=== PATIENT | female | born 1935 | race Caucasian/White ===

== ENCOUNTER 2023-05-06 20:01 | Inpatient (IN) ==
[2023-05-06 20:39] LABS: Hematocrit (blood only) 43.3 % (37.0-47.0); Hemoglobin 14.6 g/dl (12.0-16.0); Mean Corpuscular Hemoglobin 32.9 pg (25.0-34.0); Mean Corpuscular Hgb Conc 33.7 g/dL (32.0-36.0); Mean Corpuscular Volume 97.5 fL (80.0-100.0); Mean Platelet Volume 10.2 fL (9.4-12.4); Platelet Count 182 K/uL (130-400); RDW Coefficient of Variation 12.8 % (11.5-14.5); Red Blood Count 4.44 M/uL (4.20-5.40); White Blood Count 7.01 K/ul (4.8-10.8)
[2023-05-06 20:41] LABS: iSTAT Creatinine 0.9 mg/dl (0.6-1.3); iSTAT Ionized Calcium 1.13 mmol/l (1.12-1.32); iSTAT Potassium 5.1 mmol/L (3.3-5.0)
[2023-05-06 21:01] LABS: Alanine Aminotransferase 14 U/L (7-52); Albumin Globulin Ratio 1.2 (0.9-2); Albumin Level 3.6 gm/dl (3.4-5.0); Alkaline Phosphatase 94 U/L (34-104); BUN Creatinine Ratio 31.8 (10-20); Bilirubin,Total 0.4 mg/dl (0.2-1.0); Blood Urea Nitrogen 27 mg/dl (6-23); Calcium 8.8 mg/dl (8.6-10.3); Carbon Dioxide 22 mmol/L (21-32); Chloride 108 mmol/L (98-107); Creatinine Clr Calc Pharmacy 35.8 ml/min; Est GFR (African American) 71.9 ml/min; Globulin 3.1 gm/dl (2.5-4.0); Glucose 127 mg/dl (70-99(Fasting)); Total Protein 6.7 gm/dl (6.0-8.3)
[2023-05-06 21:33] LABS: Partial Thromboplastin Ratio 0.9; Partial Thromboplastin Time 25 Seconds (21-31); Prothrombin Time 11.4 Seconds (9.0-12.0)
[2023-05-06 21:46] LABS: Potassium 5.2 mmol/L (3.5-5.1)
--- NOTE | 2023-05-06 22:03 | Emergency Department Note ---
Impression & Plan Lower gastrointestinal hemorrhage ED Provider Note NAME: AIDA WOLFE AGE: 88 SEX: F : 1935 ARRIVES VIA: Walk-In INFORMANT: Patient, ED PROVIDER(S): Anabelle Leger MD CHIEF COMPLAINT: Red blood per rectum HPI: This is an 88-year-old female with history of lupus presenting for bright red blood per rectum. Patient states that around 7 PM today she had numerous liquid bowel movements that consisted mostly of blood. Patient notes that this significantly concerned her so she presented to the ER immediately. Patient tells me that she recently began naproxen for osteoarthritis/lupus as she was taken off an older medication that is now hard to find. She notes that she has never had this happen before. No current nausea or vomiting. No abdominal pain. She notes she has never had a colonoscopy in her life. Otherwise while here she has continued bright red blood per rectum. ROS: See above HPI for pertinent positives & negatives. A total of 10 systems reviewed and were otherwise negative. PAST MEDICAL HISTORY: See Below PAST SURGICAL HISTORY: See Below FAMILY HISTORY: See Below SOCIAL HISTORY: See Below HOME MEDICATIONS: See Below ALLERGIES: See Below VITALS: See Below PHYSICAL EXAMINATION: General: resting comfortably in no acute distress Head: Normocephalic and atraumatic Eyes: Normal inspection, extraocular muscles intact Ear, nose, throat: Normal external exam Neck: Normal range of motion Respiratory: lungs clear to auscultation bilaterally Cardiovascular: Regular rate/rhythm, no murmur GI: soft, nontender, no guarding or rebound : No anal tear, dried blood on patient's perineum, thighs and legs Extremities: nontender, moves all extremities Neuro: The patient awake and alert, appropriately conversive, no focal deficits, symmetric faces Skin: Warm, dry, and intact MEDICAL DECISION MAKING: This is an 88-year-old female presenting for bright blood per rectum. Patient had at least 4 episodes of moderate red-tinged stools. As per nurse, she filled about 1/2-3/4 of toilet hat with her red stool. It was somewhat mucousy but mostly liquid that was blood-tinged. -Patient only had symptoms for the past 3 hours. Hemoglobin is stable at 14 however based on her current length of symptoms, I do not believe she has equal her period yet. -Unfortunately patient cannot be sent home due to the significant amount of bleeding she has had here. She never had a colonoscopy either. -She is on any blood thinners but is on naproxen over the past 2 to 3 weeks -Will admit for further GI workup Differential diagnosis: Upper versus lower GI bleed ER treatment provided: See below Diagnostics interpreted by me: ECG: None Cardiac Monitoring: An order was placed for continuous cardiac monitoring. The monitor shows a rate of 20 with sinus rhythm. Laboratory studies: As stated above and show below. Imaging studies: See below. Past Med/Surg History Medical History (Updated 05/07/23 @ 02:03 by Anabelle Leger MD) Hx of renal calculi lt. History of cataract DVT (deep venous thrombosis) 1977, 1988, resolved [id number] Lupus Surgical History H/O breast surgery (09/18/21) Needle localization right breast biopsy x2 Dr. 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 Family History Daughter Breast cancer Sister Hypertension Father Hypertension Grandfather (Paternal) Stroke Grandfather (Maternal) Hypertension Brother Hypertension Other Heart disease Denies family history of Ovarian cancer Colorectal cancer Social History Smoking Status: Never smoker Second Hand Exposure: No; Do You Dip or Chew Tobacco: No; Hx Alcohol Use: No Hx Substance Use: No Preferred Language: Greenlandic Communication Ability: Effective Transportation Officer Required: No Beliefs That Will Affect Care: None marital status: / Current Living Situation: Alone How many Children do You have: 1 Feels Safe at Home: Yes Diet: regular during the past year weight has: remained stable Assistive Devices: Glasses Allergies Allergies Allergy/AdvReac Type Severity Reaction Status Date / Time adhesive Allergy Unknown Verified 03/06/23 09:41 silicone AdvReac brock Verified 03/06/23 09:41 Home Meds Home Medications Medication Instructions Recorded Confirmed aspirin 81 mg tablet,delayed 81 mg PO QAM 06/05/20 05/06/23 release (Ecotrin Low Strength) glucosamine sulfate 500 mg tablet 500 mg PO BID 06/05/20 05/06/23 (Glucosamine) lisinopril 10 mg tablet 10 mg PO QAM 06/05/20 05/06/23 lisinopril 5 mg tablet 5 mg PO QAM 06/05/20 05/06/23 multivitamin with minerals 1 tab PO DAILY 06/05/20 05/06/23 (Multiple Vitamin-Minerals tablet) naproxen 250 mg tablet 250 mg PO BID PRN arthritis 05/06/23 05/06/23 vitamin E 268 mg (400 unit) capsule 268 mg PO DAILY 05/06/23 05/06/23 Results & Data (ED) Vital Signs Vital Signs - 24 hr 05/06/23 20:05 05/06/23 20:44 05/06/23 22:02 Temperature 37 C Temperature Source Temporal Artery Scan Pulse Rate 81 66 Pulse Rate [Apical] 68 Pulse Rhythm [Apical] Regular Pulse Strength [Apical] Normal Respiratory Rate 18 20 Respiratory Effort / Characteristics Non-Labored Non-Labored Respiratory Depth Normal Normal Blood Pressure 167/76 H Blood Pressure [Right Arm] 168/90 H Blood Pressure Mean 106 Blood Pressure Mean [Right Arm] 116 Pulse Oximetry 97 96 Oxygen Delivery Method Room Air Room Air Sepsis Recent Fever Within 48 Hours No Sepsis New/Unexplained Change in Mental Status No Sepsis Action Taken by Nursing No Action Required Laboratory Data 05/06/23 20:23 05/06/23 21:07 Lab Results 05/06/23 05/06/23 05/06/23 Range/Units 20:23 20:29 20:32 WBC 7.01 (4.8-10.8) K/ul RBC 4.44 (4.20-5.40) M/uL Hgb 14.6 (12.0-16.0) g/dl POC Hgb 15.0 (12.0-16.0) g/dl Hct 43.3 (37.0-47.0) % POC Hct 44 (37-47) % MCV 97.5 (80.0-100.0) fL MCH 32.9 (25.0-34.0) pg MCHC 33.7 (32.0-36.0) g/dL RDW Std Deviation 46.0 (36.4-46.3) fL RDW Coeff of Felicia 12.8 (11.5-14.5) % Plt Count 182 (130-400) K/uL MPV 10.2 (9.4-12.4) fL PT Cancelled INR Cancelled APTT Cancelled PTT Ratio Cancelled POC Sodium 140 (135-144) mmol/L Sodium TNP POC Potassium 5.1 H (3.3-5.0) mmol/L Potassium TNP POC Chloride 108 (101-112) mmol/L Chloride 108 H (98-107) mmol/L Carbon Dioxide 22 (21-32) mmol/L POC Total CO2 23 L (24-31) mmol/L Anion Gap TNP POC Anion Gap 15.0 L (16-25) mmol/L POC BUN 35 H (7-18) mg/dl BUN 27 H (6-23) mg/dl Creatinine 0.85 (0.6-1.2) mg/dl POC Creatinine 0.9 (0.6-1.3) mg/dl Est Cr Clr Drug Dosing 35.8 ml/min Est GFR ( Amer) 71.9 ml/min Est GFR (Non-Af Amer) 62.0 ml/min BUN/Creatinine Ratio 31.8 H (10-20) Glucose 127 H (70-99(Fasting)) mg/dl POC Glucose (other) 125 H (70-99) mg/dl Calcium 8.8 (8.6-10.3) mg/dl POC Ioniz Calcium Jeri 1.13 (1.12-1.32) mmol/l Total Bilirubin 0.4 (0.2-1.0) mg/dl AST TNP ALT 14 (7-52) U/L Alkaline Phosphatase 94 (34-104) U/L Troponin I High Sens 9.0 (0-14) pg/ml Total Protein 6.7 (6.0-8.3) gm/dl Albumin 3.6 (3.4-5.0) gm/dl Globulin 3.1 (2.5-4.0) gm/dl Albumin/Globulin Ratio 1.2 (0.9-2) Blood Type Cancelled Antibody Screen Cancelled 05/06/23 Range/Units 21:07 WBC (4.8-10.8) K/ul RBC (4.20-5.40) M/uL Hgb (12.0-16.0) g/dl POC Hgb (12.0-16.0) g/dl Hct (37.0-47.0) % POC Hct (37-47) % MCV (80.0-100.0) fL MCH (25.0-34.0) pg MCHC (32.0-36.0) g/dL RDW Std Deviation (36.4-46.3) fL RDW Coeff of Felicia (11.5-14.5) % Plt Count (130-400) K/uL MPV (9.4-12.4) fL PT 11.4 INR 1.0 APTT 25 PTT Ratio 0.9 POC Sodium (135-144) mmol/L Sodium 139 POC Potassium (3.3-5.0) mmol/L Potassium 5.2 H POC Chloride (101-112) mmol/L Chloride (98-107) mmol/L Carbon Dioxide (21-32) mmol/L POC Total CO2 (24-31) mmol/L Anion Gap POC Anion Gap (16-25) mmol/L POC BUN (7-18) mg/dl BUN (6-23) mg/dl Creatinine (0.6-1.2) mg/dl POC Creatinine (0.6-1.3) mg/dl Est Cr Clr Drug Dosing ml/min Est GFR ( Amer) ml/min Est GFR (Non-Af Amer) ml/min BUN/Creatinine Ratio (10-20) Glucose (70-99(Fasting)) mg/dl POC Glucose (other) (70-99) mg/dl Calcium (8.6-10.3) mg/dl POC Ioniz Calcium Jeri (1.12-1.32) mmol/l Total Bilirubin (0.2-1.0) mg/dl AST 17 ALT (7-52) U/L Alkaline Phosphatase (34-104) U/L Troponin I High Sens (0-14) pg/ml Total Protein (6.0-8.3) gm/dl Albumin (3.4-5.0) gm/dl Globulin (2.5-4.0) gm/dl Albumin/Globulin Ratio (0.9-2) Blood Type O Positive Antibody Screen NEGATIVE Administered Medications Sodium Chloride (Nss) 1,000 mls @ 100 mls/hr IV .Q10H DAR Stop: 06/05/23 23:44 Last Admin: 05/07/23 01:18 Dose: 100 mls/hr Documented By: AYE Discontinued Medications Pantoprazole Sodium 40 mg/ (Syringe) 10 mls @ 5 mls/min IV NOW STA Stop: 05/06/23 23:57 Last Admin: 05/07/23 01:18 Dose: 5 mls/min Documented By: AYE Ceftriaxone Sodium (Rocephin) 1,000 mg in 50 mls @ 100 mls/hr IV ONE STA; Protocol Stop: 05/07/23 00:27 Last Admin: 05/07/23 01:18 Dose: 100 mls/hr Documented By: AYE Discharge Plan Visit Data Chief Complaint: Rectal Bleed Stated Complaint: RECTAL BLEEDING ED Provider: Anabelle Leger Discharge Problem: Lower gastrointestinal hemorrhage Patient Disposition: Admitted As Inpatient Discharge Instructions Interventions: ED Discharge Assessment Last Done: 05/07/23 01:28
--- NOTE | 2023-05-06 23:36 | History & Physical Report ---
Date of Service May 06, 2023 Assessment & Plan (1) H/O breast surgery: (2) Lobular carcinoma in situ (LCIS) of right breast: (3) Arthritis: (4) High blood pressure: (5) History of blood clots: (6) Lupus: (7) Rectal bleeding: Plan Rectal Bleed -Symptoms started evening of 05/06, 3 episodes prior to ED arrival. Per patient, now feels like she is "oozing" -Hgb of 14.6 on arrival, vitals stable and patient without symptoms of lightheadedness/dizziness -Will continue to monitor H&H q4h, transfuse if Hgb <7. Type and screen pending. -Given the fact patient's symptoms started shortly after reheating leftovers, will order stool PCR as well -Start Protonix 40 BID, Ceftriaxone daily -As patient does not have any abdominal cramping or pain at present, will hold off on ordering imaging. If patient begins to experience pain could consider CTA of abdomen -Consult placed for Gastroenterology, appreciate recommendations -Will keep NPO while awaiting GI evaluation, will maintain IV fluids -Will monitor on telemetry Hyperkalemia -Potassium of 5.1 on arrival -Repeat BMP in a.m. -Monitor on telemetry Hypertension -Takes Lisinopril at home -BP has been ~140-160 systolic SLE -Per patient, symptoms in remission -Previously had been taking Salicylate for OA and Lupus pain, but recently had switched to Naproxen as above Admit to Telemetry Diet: NPO, NSS @ 100mL/h VTE Prophylaxis: Contraindicated due to concern of GI bleed Code Status: Conditional, Yes CPR, No intubation/ventilator support History of Present Illness Primary Care Provider: Ronnie Jack MD April Yanez is a 88 year-old female with past medical history of breast cancer, arthritis, HTN, and Lupus. She presents to the ED this evening for concern of three episodes of rectal bleeding. She notes that she had defrosted some chili which she ate for dinner (was originally cooked last week) and after wards felt like she needed to move her bowels- however when she went to the toilet there was only blood. She denies any abdominal cramping or pain, or nausea. She denies dizziness or lightheadedness. Denies any issues with hemorrhoids or GI bleed in the past. Patient notes that she had previously been taking Salicylate 750mg BID but this was difficult to find at pharmacies, so her PCP switched her prescription to Naproxen 250mg BID. Patient states she has been taking the Naproxen twice daily for 2 weeks, although per chart review it appears this medication has been filled twice and was prescribed the first week of February. ED Course: -CBC, BMP Allergies Allergy/AdvReac Type Severity Reaction Status Date / Time adhesive Allergy Unknown Verified 03/06/23 09:41 silicone AdvReac brock Verified 03/06/23 09:41 Home Medications Medication Instructions Recorded Confirmed Type aspirin 81 mg tablet,delayed 81 mg PO QAM 06/05/20 05/06/23 History release (Ecotrin Low Strength) glucosamine sulfate 500 mg tablet 500 mg PO BID 06/05/20 05/06/23 History (Glucosamine) lisinopril 10 mg tablet 10 mg PO QAM 06/05/20 05/06/23 History lisinopril 5 mg tablet 5 mg PO QAM 06/05/20 05/06/23 History multivitamin with minerals 1 tab PO DAILY 06/05/20 05/06/23 History (Multiple Vitamin-Minerals tablet) naproxen 250 mg tablet 250 mg PO BID PRN arthritis 05/06/23 05/06/23 History vitamin E 268 mg (400 unit) capsule 268 mg PO DAILY 05/06/23 05/06/23 History Past Med/Surg History Medical History Hx of renal calculi lt. History of cataract DVT (deep venous thrombosis) 1988, resolved Shingles 2001 Lupus Surgical History H/O breast surgery (09/18/21) Needle localization right breast biopsy x2 Dr. 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 Family History Daughter Breast cancer Her daughter was recently diagnosed with triple negative breast cancer and required segmental mastectomy radiation therapy and chemotherapy. Sister Hypertension Father Hypertension Grandfather (Paternal) Stroke Grandfather (Maternal) Hypertension Brother Hypertension Other Heart disease Denies family history of Ovarian cancer Colorectal cancer Social History Smoking Status: Never smoker Second Hand Exposure: No; Do You Dip or Chew Tobacco: No; Hx Alcohol Use: No Hx Substance Use: No Preferred Language: Mauritian Communication Ability: Effective Chief I Dispatcher Required: No Beliefs That Will Affect Care: None marital status: / Current Living Situation: Alone How many Children do You have: 1 Feels Safe at Home: Yes Diet: regular during the past year weight has: remained stable Assistive Devices: Cane, Glasses and Walker Review of Systems Review of Systems: As per above Physical Exam Constitutional: WD/WN, vitals as above Eyes: + anicteric sclerae; no conjunctival abn ormality ENMT: Ears: no external ear abnormality Nose: no external nose abnormality mucous membranes slightly tacky Respiratory: normal respiratory effort, lungs clear to auscultation Cardiovascular: Rate/Rhythm: regular rate and regular rhythm Extremities: no edema Appropriate capillary refill Gastrointestinal (Abdomen): Inspection/Auscultation: abdomen not distended Percussion/Palpation: abdomen soft; abdomen nontender Skin: no rashes, warm and dry Psychiatric: A+Ox3, euthymic affect Results & Data Results & Data Vital Signs (Past 12 Hours) Vital Signs Temp Pulse Pulse Resp BP BP Pulse Ox 05/06/23 22:02 68 20 168/90 H 96 05/06/23 20:44 66 05/06/23 20:05 37 C 81 18 167/76 H 97 O2 Del Method 05/06/23 22:02 Room Air 05/06/23 20:44 05/06/23 20:05 Room Air Supervising Physician Co-Signing Physician Notes Attending addendum: I have physically seen this patient, have supervised the medical residents activities, and agree with the H&P unless as otherwise noted. Assessment and Plan: Acute onset of rectal bleeding- Patient had 3 episodes of blood at home, and reports she feels like she is oozing at this time Patient has been taking naproxen to 250 mg p.o. twice daily for the past 2 weeks for underlying issues with lupus, in addition to her baseline aspirin If has more significant bleeding, will Rx DDAVP at that time Admission hemoglobin 14.6, with a type and screen pending No indication to perform stool studies for infectious cause, or any suggestion of ischemic bowel Vital signs stable Placed on Protonix 40 mg IV twice daily Ceftriaxone 1 g IV daily Admit to monitored bed Consult to gastroenterology Mild hyperkalemia- Potassium 5.2 on admission Will improve with rehydration with normal saline, and holding lisinopril Hydralazine 10 mg IV every 4 hours as needed for systolic blood pressure above 160 SLE- Holding aspirin and naproxen as noted above Had been taking salicylate, which she was no longer able to find in the outpatient setting, and got changed to naproxen as noted above Resident Activity Tracking Resident Involvement: Resident Care Provided Care Provided: Adult Hospital Medicine
[2023-05-07] MEDS: PANTOprazole 40 MG in SYRINGE 0 ML IV STA (01:18)
[2023-05-07] MEDS: SODIUM CHLORIDE 0.9% 1,000 ML IV SCH (01:18)
[2023-05-07] MEDS: cefTRIAXone SODIUM 1,000 MG/50 ML BAG IV STA (01:18)
[2023-05-07] MEDS ORDERED: ONDANSETRON INJ 2 MG/ML 2 ML VIAL IV PRN (01:28)
[2023-05-07 02:06] LABS: Hematocrit (blood only) 38.1 % (37.0-47.0); Hemoglobin 12.5 g/dl (12.0-16.0)
[2023-05-07 02:24] LABS: Albumin Globulin Ratio 1.4 (0.9-2); Albumin Level 3.3 gm/dl (3.4-5.0); BUN Creatinine Ratio 33.7 (10-20); Bilirubin,Total 0.3 mg/dl (0.2-1.0); Calcium 8.5 mg/dl (8.6-10.3); Creatinine Clr Calc Pharmacy 34.2 ml/min; Est GFR (Non-African American) 58.7 ml/min; Globulin 2.4 gm/dl (2.5-4.0); Potassium 4.6 mmol/L (3.5-5.1); Total Protein 5.7 gm/dl (6.0-8.3)
[2023-05-07] MEDS: PANTOprazole 40 MG in SYRINGE 0 ML IV SCH (08:31)
[2023-05-07] MEDS: lisinopril 10 MG TAB PO SCH (08:31)
[2023-05-07] MEDS: lisinopril 5 MG TAB PO SCH (08:32)
[2023-05-07 09:27] LABS: Hematocrit (blood only) 33.1 % (37.0-47.0); Hemoglobin 10.8 g/dl (12.0-16.0)
--- NOTE | 2023-05-07 11:28 | Electrocardiogram Report ---
Test Reason : Blood Pressure : / mmHG Vent. Rate : 070 BPM Atrial Rate : 070 BPM P-R Int : 244 ms QRS Dur : 130 ms QT Int : 402 ms P-R-T Axes : 053 061 004 degrees QTc Int : 434 ms Sinus rhythm with 1st degree A-V block Left atrial enlargement Right bundle branch block Possible Old Inferior infarct Abnormal ECG When compared with ECG of 12-SEP-2021 10:08, No significant change was found Confirmed by Giovanni Muse ([id number]) on 05/07/2023 11:28:01 AM Referred By: REFERRED SELF Confirmed By:Giovanni Muse
[2023-05-07 14:51] LABS: Hemoglobin 10.8 g/dl (12.0-16.0)
--- NOTE | 2023-05-07 15:03 | Gastrointestinal Consultation ---
Date of Consultation May 07, 2023 Assessment & Plan (1) Rectal bleeding: Her symptoms are suggestive of a diverticular hemorrhage. She seems to have stopped bleeding with the lack of bloody bowel movements for the past several hours. The only complicating part of her history is that she has never had a colonoscopy but she is 88. I discussed observation since I am comfortable this is diverticular bleeding especially since she has slowed down or stopped. We could also do colonoscopy but she isn't thrilled with that idea. For now will observe but can step in and do colonoscopy if circumstances change. She does take naproxen but this does not seem to be an upper GI bleed. NSAIDs can cause colonic ulcers but again not much would be done. History of Present Illness Reason for Consultation: rectal bleeding Attending Physician: Leopoldo Archer MD History of Present Illness 88 year old female who started passing blood per rectum last night at 7 pm. She went 4 times over the next few hours and presented to the ED. She has gone several times since being in ED but for the last three hours (since noon) she hasn't gone. She feels well. She has had no abdominal pain. She has had no fever or chills. She has never had a colonoscopy Allergies Allergy/AdvReac Type Severity Reaction Status Date / Time adhesive Allergy Unknown Verified 03/06/23 09:41 silicone AdvReac brock Verified 03/06/23 09:41 Home Medications Medication Instructions Recorded Confirmed Type aspirin 81 mg tablet,delayed 81 mg PO QAM 06/05/20 05/06/23 History release (Ecotrin Low Strength) glucosamine sulfate 500 mg tablet 500 mg PO BID 06/05/20 05/06/23 History (Glucosamine) lisinopril 10 mg tablet 10 mg PO QAM 06/05/20 05/06/23 History lisinopril 5 mg tablet 5 mg PO QAM 06/05/20 05/06/23 History multivitamin with minerals 1 tab PO DAILY 06/05/20 05/06/23 History (Multiple Vitamin-Minerals tablet) naproxen 250 mg tablet 250 mg PO BID PRN arthritis 05/06/23 05/06/23 History vitamin E 268 mg (400 unit) capsule 268 mg PO DAILY 05/06/23 05/06/23 History Patient History Medical History Hx of renal calculi lt. History of cataract DVT (deep venous thrombosis) 1977, 1988, resolved Shingles 2002 Lupus Surgical History H/O breast surgery (09/18/21) Needle localization right breast biopsy x2 Dr. 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 Family History Daughter Breast cancer Her daughter was recently diagnosed with triple negative breast cancer and required segmental mastectomy radiation therapy and chemotherapy. Sister Hypertension Father Hypertension Grandfather (Paternal) Stroke Grandfather (Maternal) Hypertension Brother Hypertension Other Heart disease Denies family history of Ovarian cancer Colorectal cancer Social History Smoking Status: Never smoker Second Hand Exposure: No; Do You Dip or Chew Tobacco: No; Hx Alcohol Use: No Hx Substance Use: No Preferred Language: Maori Communication Ability: Effective Director Of Patient Financial Services Required: No Beliefs That Will Affect Care: None marital status: / Current Living Situation: Alone How many Children do You have: 1 Feels Safe at Home: Yes Diet: regular during the past year weight has: remained stable Assistive Devices: Cane, Glasses and Walker Review of Systems Review of Systems: All systems reviewed & are unremarkable except as noted in HPI & below Physical Exam Constitutional: WD/WN, vitals as above no acute distress Eyes: PERRL, conjunctivae normal, anicteric sclerae ENMT: external ear and nose normal, oropharynx normal Neck: trachea midline, no thyromegaly Respiratory: normal respiratory effort, lungs clear to auscultation Cardiovascular: RRR, no murmur, no edema Gastrointestinal (Abdomen): normal bowel sounds, soft, nontender, no hepatosplenomegaly Musculoskeletal: Extremities: no cyanosis and no clubbing Skin: no rashes, warm and dry Neurologic: PERRL, EOMI, accommodation nl, no face palsy, no dysarthria Psychiatric: Orientation: alert and oriented x 3 Results & Data Vital Signs (Past 12 Hours) Vital Signs Temp Pulse Pulse Resp BP Pulse Ox O2 Del Method 05/07/23 11:33 36.6 C 85 17 118/60 95 Room Air 05/07/23 08:47 36.7 C 77 17 161/84 H 95 Room Air 05/07/23 07:25 76 05/07/23 06:19 79 22 121/77 96 Room Air 05/07/23 04:45 74 20 121/66 97 Room Air Laboratory Results 05/07/23 05/07/23 05/07/23 Range/Units 14:27 09:08 01:45 WBC (4.8-10.8) K/ul RBC (4.20-5.40) M/uL Hgb 10.8 L 10.8 L 12.5 (12.0-16.0) g/dl POC Hgb (12.0-16.0) g/dl Hct 32.0 L 33.1 L 38.1 (37.0-47.0) % POC Hct (37-47) % MCV (80.0-100.0) fL MCH (25.0-34.0) pg MCHC (32.0-36.0) g/dL RDW Std Deviation (36.4-46.3) fL RDW Coeff of Felicia (11.5-14.5) % Plt Count (130-400) K/uL MPV (9.4-12.4) fL PT INR APTT PTT Ratio POC Sodium (135-144) mmol/L Sodium 140 POC Potassium (3.3-5.0) mmol/L Potassium 4.6 POC Chloride (101-112) mmol/L Chloride 111 H (98-107) mmol/L Carbon Dioxide 21 (21-32) mmol/L POC Total CO2 (24-31) mmol/L Anion Gap 8 POC Anion Gap (16-25) mmol/L POC BUN (7-18) mg/dl BUN 30 H (6-23) mg/dl Creatinine 0.89 (0.6-1.2) mg/dl POC Creatinine (0.6-1.3) mg/dl Est Cr Clr Drug Dosing 34.2 ml/min Est GFR ( Amer) 68.0 ml/min Est GFR (Non-Af Amer) 58.7 ml/min BUN/Creatinine Ratio 33.7 H (10-20) Glucose 131 H (70-99(Fasting)) mg/dl POC Glucose (other) (70-99) mg/dl Calcium 8.5 L (8.6-10.3) mg/dl POC Ioniz Calcium Jeri (1.12-1.32) mmol/l Total Bilirubin 0.3 (0.2-1.0) mg/dl AST 15 ALT 10 (7-52) U/L Alkaline Phosphatase 74 (34-104) U/L Troponin I High Sens (0-14) pg/ml Total Protein 5.7 L (6.0-8.3) gm/dl Albumin 3.3 L (3.4-5.0) gm/dl Globulin 2.4 L (2.5-4.0) gm/dl Albumin/Globulin Ratio 1.4 (0.9-2) Blood Type Antibody Screen 05/06/23 05/06/23 05/06/23 Range/Units 21:07 20:32 20:29 WBC (4.8-10.8) K/ul RBC (4.20-5.40) M/uL Hgb (12.0-16.0) g/dl POC Hgb 15.0 (12.0-16.0) g/dl Hct (37.0-47.0) % POC Hct 44 (37-47) % MCV (80.0-100.0) fL MCH (25.0-34.0) pg MCHC (32.0-36.0) g/dL RDW Std Deviation (36.4-46.3) fL RDW Coeff of Felicia (11.5-14.5) % Plt Count (130-400) K/uL MPV (9.4-12.4) fL PT 11.4 INR 1.0 APTT 25 PTT Ratio 0.9 POC Sodium 140 (135-144) mmol/L Sodium 139 POC Potassium 5.1 H (3.3-5.0) mmol/L Potassium 5.2 H POC Chloride 108 (101-112) mmol/L Chloride (98-107) mmol/L Carbon Dioxide (21-32) mmol/L POC Total CO2 23 L (24-31) mmol/L Anion Gap POC Anion Gap 15.0 L (16-25) mmol/L POC BUN 35 H (7-18) mg/dl BUN (6-23) mg/dl Creatinine (0.6-1.2) mg/dl POC Creatinine 0.9 (0.6-1.3) mg/dl Est Cr Clr Drug Dosing ml/min Est GFR ( Amer) ml/min Est GFR (Non-Af Amer) ml/min BUN/Creatinine Ratio (10-20) Glucose (70-99(Fasting)) mg/dl POC Glucose (other) 125 H (70-99) mg/dl Calcium (8.6-10.3) mg/dl POC Ioniz Calcium Jeri 1.13 (1.12-1.32) mmol/l Total Bilirubin (0.2-1.0) mg/dl AST 17 ALT (7-52) U/L Alkaline Phosphatase (34-104) U/L Troponin I High Sens (0-14) pg/ml Total Protein (6.0-8.3) gm/dl Albumin (3.4-5.0) gm/dl Globulin (2.5-4.0) gm/dl Albumin/Globulin Ratio (0.9-2) Blood Type O Positive Cancelled Antibody Screen NEGATIVE Cancelled 05/06/23 Range/Units 20:23 WBC 7.01 (4.8-10.8) K/ul RBC 4.44 (4.20-5.40) M/uL Hgb 14.6 (12.0-16.0) g/dl POC Hgb (12.0-16.0) g/dl Hct 43.3 (37.0-47.0) % POC Hct (37-47) % MCV 97.5 (80.0-100.0) fL MCH 32.9 (25.0-34.0) pg MCHC 33.7 (32.0-36.0) g/dL RDW Std Deviation 46.0 (36.4-46.3) fL RDW Coeff of Felicia 12.8 (11.5-14.5) % Plt Count 182 (130-400) K/uL MPV 10.2 (9.4-12.4) fL PT Cancelled INR Cancelled APTT Cancelled PTT Ratio Cancelled POC Sodium (135-144) mmol/L Sodium TNP POC Potassium (3.3-5.0) mmol/L Potassium TNP POC Chloride (101-112) mmol/L Chloride 108 H (98-107) mmol/L Carbon Dioxide 22 (21-32) mmol/L POC Total CO2 (24-31) mmol/L Anion Gap TNP POC Anion Gap (16-25) mmol/L POC BUN (7-18) mg/dl BUN 27 H (6-23) mg/dl Creatinine 0.85 (0.6-1.2) mg/dl POC Creatinine (0.6-1.3) mg/dl Est Cr Clr Drug Dosing 35.8 ml/min Est GFR ( Amer) 71.9 ml/min Est GFR (Non-Af Amer) 62.0 ml/min BUN/Creatinine Ratio 31.8 H (10-20) Glucose 127 H (70-99(Fasting)) mg/dl POC Glucose (other) (70-99) mg/dl Calcium 8.8 (8.6-10.3) mg/dl POC Ioniz Calcium Jeri (1.12-1.32) mmol/l Total Bilirubin 0.4 (0.2-1.0) mg/dl AST TNP ALT 14 (7-52) U/L Alkaline Phosphatase 94 (34-104) U/L Troponin I High Sens 9.0 (0-14) pg/ml Total Protein 6.7 (6.0-8.3) gm/dl Albumin 3.6 (3.4-5.0) gm/dl Globulin 3.1 (2.5-4.0) gm/dl Albumin/Globulin Ratio 1.2 (0.9-2) Blood Type Antibody Screen
--- NOTE | 2023-05-07 16:32 | Hospitalist Progress Note ---
Date of Service May 07, 2023 Assessment & Plan (1) Lower gastrointestinal hemorrhage: Plan: Probably of diverticular etiology. Gastroenterology consultation and recommendations appreciated. No colonoscopy at this time unless absolutely necessary. Watchful waiting. Serial hemoglobin levels (2) Acute blood loss anemia: Plan: Mild. Hemoglobin appears to have stabilized now at 10.8. No transfusion necessary at this time. (3) Lupus: Plan: History of systemic lupus erythematosus. Nonsteroidal antiinflammatory therapy is currently on hold. (4) Essential hypertension: Plan: Stable. Continue current medical management with lisinopril (5) Hyperkalemia: Plan: Mild on admission. Probably due to lisinopril usage. Plan Hopefully home tomorrow, May 08, if hemoglobin remained stable. Admission and Anticipated Discharge Date Admission Date: May 06, 2023 Subjective Alert and oriented. No distress. Gastroenterology consultation noted. No colonoscopy planned at this time. Hemoglobin appears to have stabilized at 10.8. Potassium improved to 4.6. Perhaps lisinopril should be discontinued indefinitely. IV fluids taper down serial hemoglobin levels ordered. Hopefully she can go home tomorrow, May 08 Review of Systems 2 Review of Systems: Constitutional-no fever or chills ENT-no blurred vision, no double vision, no epistaxis, no sore throat Respiratory-no cough, no wheezing, no shortness of breath Cardiac-no palpitations, no chest pain, no syncope GI-no nausea, vomiting, diarrhea, melena. She has had recent hematochezia -no urinary retention, no urinary incontinence, no dysuria, no hematuria Musculoskeletal-no joint pain, no muscle tenderness Skin-no bruising, no rashes, no pruritus Neuro-no isolated weakness, no paresthesia Psych-no depression, no anxiety Physical Exam 2 Physical Exam: General-alert and oriented x3, no fever, no chills HEENT-head atraumatic and normocephalic, pupils equal and reactive to light, extraocular muscles intact Neck-no lymphadenopathy or thyromegaly, trachea midline Chest-clear to auscultation. No rales, wheezing or rhonchi Cardiac-regular rate and rhythm, normal S1 and S2 Abdomen-normal bowel sounds, nontender, no hepatosplenomegaly Extremities-no cyanosis, clubbing, or edema Neuro-cranial nerves II through XII intact, motor and sensory function within normal limits, strength symmetrical, no focal deficits Psych-normal affect, normal mood Results & Data Results & Data Vital Signs (Past 12 Hours) Vital Signs Temp Pulse Pulse Resp BP Pulse Ox O2 Del Method 05/07/23 15:32 78 05/07/23 15:11 Room Air 05/07/23 15:11 36.6 C 88 18 129/77 99 Room Air 05/07/23 11:33 36.6 C 85 17 118/60 95 Room Air 05/07/23 08:47 36.7 C 77 17 161/84 H 95 Room Air 05/07/23 07:25 76 05/07/23 06:19 79 22 121/77 96 Room Air 05/07/23 04:45 74 20 121/66 97 Room Air Laboratory Results 05/07/23 14:27 05/07/23 01:45 PG Care Time/CCT Total # of Minutes Spent Total Time Spent with Patient: Total time spent is greater than 50% in coordination of care (as documented) at patient's floor/unit and/or counseling patient: Coding Level of Care Code 40682 SUB INP/OBS CARE 3/50MIN Diagnoses Lower gastrointestinal hemorrhage K92.2 Acute blood loss anemia D62 Lupus M32.9 Essential hypertension I10 Hyperkalemia E87.5
[2023-05-07 17:52] LABS: Adenovirus F 40/41 PCR Not Detected (NotDetected); Astrovirus PCR Not Detected (NotDetected); Campylobacter PCR Not Detected (NotDetected); Cryptosporidium PCR Not Detected (NotDetected); Cyclospora cayetanensis PCR Not Detected (NotDetected); Entamoeba histolytica PCR Not Detected (NotDetected); Enteroaggregative E.coli(EAEC) Not Detected (NotDetected); Enteropathogenic E.coli (EPEC) Not Detected (NotDetected); Enterotoxigenic E.coli (ETEC) Not Detected (NotDetected); Giardia lamblia PCR Not Detected (NotDetected); Norovirus GI/GII PCR Not Detected (NotDetected); Plesiomonas shigelloides PCR Not Detected (NotDetected); Rotavirus A PCR Not Detected (NotDetected); Salmonella PCR Not Detected (NotDetected); Sapovirus PCR Not Detected (NotDetected); Shiga-like Toxin E.coli (STEC) Not Detected (NotDetected); Shigella/Enteroinvasive E.coli Not Detected (NotDetected); Vibrio cholerae PCR Not Detected (NotDetected); Vibrio species PCR Not Detected (NotDetected); Yersinia enterocolitica PCR Not Detected (NotDetected)
--- NOTE | 2023-05-07 19:59 | Billing Data ---
Date of Service May 07, 2023 Coding Level of Care Code 87896 INT INP/OBS CARE
[2023-05-07 21:02] LABS: Hemoglobin 10.5 g/dl (12.0-16.0)
[2023-05-07] MEDS ORDERED: cefTRIAXone SODIUM 1,000 MG in DEXTROSE 5 % MINI-B 50 ML IV SCH (23:00)
[2023-05-08 07:18] LABS: Basophils # (auto) 0.05 K/uL (0.00-0.20); Basophils % (auto) 0.7 %; Eosinophils # (auto) 0.23 K/uL (0.00-0.50); Eosinophils % (auto) 3.3 %; Hematocrit (blood only) 29.8 % (37.0-47.0); Hemoglobin 9.8 g/dl (12.0-16.0); Immature Granulocytes # (auto) 0.08 K/uL (0.01-0.20); Immature Granulocytes % (auto) 1.1 %; Lymphocytes # (auto) 1.31 K/uL (1.20-3.40); Lymphocytes % (auto) 18.7 %; Mean Corpuscular Hemoglobin 32.8 pg (25.0-34.0); Mean Corpuscular Hgb Conc 32.9 g/dL (32.0-36.0); Mean Corpuscular Volume 99.7 fL (80.0-100.0); Mean Platelet Volume 10.4 fL (9.4-12.4); Monocytes # (auto) 0.64 K/uL (0.11-0.59); Monocytes % (auto) 9.1 %; Neutrophils # (auto) 4.71 K/uL (1.40-6.50); Neutrophils % (auto) 67.1 %; Platelet Count 160 K/uL (130-400); RDW Coefficient of Variation 13.2 % (11.5-14.5); RDW Standard Deviation 48.4 fL (36.4-46.3); Red Blood Count 2.99 M/uL (4.20-5.40); White Blood Count 7.02 K/ul (4.8-10.8)
[2023-05-08 07:39] LABS: Albumin Globulin Ratio 1.4 (0.9-2); Albumin Level 2.7 gm/dl (3.4-5.0); Bilirubin,Total 0.4 mg/dl (0.2-1.0); Calcium 7.8 mg/dl (8.6-10.3); Creatinine Clr Calc Pharmacy 43.5 ml/min; Est GFR (African American) 90.9 ml/min; Est GFR (Non-African American) 78.5 ml/min; Globulin 1.9 gm/dl (2.5-4.0); Total Protein 4.6 gm/dl (6.0-8.3)
--- NOTE | 2023-05-08 13:21 | Discharge Summary ---
Date of Service May 08, 2023 Admission HPI Per Admitting Provider April Yanez is a 88 year-old female with past medical history of breast cancer, arthritis, HTN, and Lupus. She presents to the ED this evening for concern of three episodes of rectal bleeding. She notes that she had defrosted some chili which she ate for dinner (was originally cooked last week) and afterwards felt like she needed to move her bowels- however when she went to the toilet there was only blood. She denies any abdominal cramping or pain, or nausea. She denies dizziness or lightheadedness. Denies any issues with hemorrhoids or GI bleed in the past. Patient notes that she had previously been taking Salicylate 750mg BID but this was difficult to find at pharmacies, so her PCP switched her prescription to Naproxen 250mg BID. Patient states she has been taking the Naproxen twice daily for 2 weeks, although per chart review it appears this medication has been filled twice and was prescribed the first week of February. ED Course: -CBC, BMP Principal Diagnosis Lower GI bleed of suspected colonic diverticular etiology, acute blood loss anemia, hyperkalemia Discharge Exam General-alert and oriented x3, no fever, no chills HEENT-head atraumatic and normocephalic, pupils equal and reactive to light, extraocular muscles intact Neck-no lymphadenopathy or thyromegaly, trachea midline Chest-clear to auscultation. No rales, wheezing or rhonchi Cardiac-regular rate and rhythm, normal S1 and S2 Abdomen-normal bowel sounds, nontender, no hepatosplenomegaly Extremities-no cyanosis, clubbing, or edema Neuro-cranial nerves II through XII intact, motor and sensory function within normal limits, strength symmetrical, no focal deficits Psych-normal affect, normal mood Discharge Data Allergies Allergy/AdvReac Type Severity Reaction Status Date / Time adhesive Allergy Unknown Verified 03/06/23 09:41 silicone AdvReac brock Verified 03/06/23 09:41 Consultations 05/06/23 22:25 ED Decision to Admit Stat 05/07/23 02:12 Consult Gastroenterology Routine Hospital Course (1) Lower gastrointestinal hemorrhage: Probably of diverticular etiology. Gastroenterology consultation and recommenda tions appreciated. No colonoscopy at this time unless absolutely necessary. This appears to have resolved. She continues to have some mild hematochezia but this appears to be clearance of old blood. (2) Acute blood loss anemia: Mild. Hemoglobin appears to have stabilized now. No transfusion necessary at this time. (3) Lupus: History of systemic lupus erythematosus. Nonsteroidal antiinflammatory therapy is currently on hold. This can be restarted at discharge since this was not an upper GI bleed (4) Essential hypertension: Stable. Continue current medical management with lisinopril (5) Hyperkalemia: Mild on admission. Now resolved. Probably due to lisinopril usage. Lisinopril will be discontinued indefinitely Plan Medically stable for discharge home today, May 08. Lisinopril has been discontinued Total Time Total Time Spent Total Time Spent (In Minutes): 45 minutes Discharge Plan Discharge Items Patient Disposition: Home - Self-Care Reason For Visit: RECTAL BLEEDING Discharge Diagnosis: Lower GI bleeding of suspected colonic diverticular etiology, acute blood loss anemia, hyperkalemia Activity: Resume your previous activity Non-emergency contact: Primary Care Provider Call non-emergency contact if: your symptoms worsen Follow-up/Referrals: Ronnie Jack MD [Primary Care Provider] - Diet: Regular and Heart Healthy Addtl Attending Provider Instructions: Lisinopril has been discontinued Pending Studies at Discharge: No Stand-Alone Forms: My [facility] [place], Smoking Cessation Medications and DC Order Prescriptions: Continued aspirin [Ecotrin Low Strength] 81 mg tablet,delayed release (DR/EC) 81 mg PO QAM multivitamin with minerals [Multiple Vitamin-Minerals] Tablet 1 tab PO DAILY glucosamine sulfate [Glucosamine] 500 mg tablet 500 mg PO BID Rx Instructions: administer with meals naproxen 250 mg tablet 250 mg PO BID PRN (Reason: arthritis) vitamin E 268 mg (400 unit) Capsule 268 mg PO DAILY Discontinued lisinopril 5 mg tablet 5 mg PO QAM lisinopril 10 mg tablet 10 mg PO QAM Discharge Orders: Discharge Order (Routine); Ordered 05/08/23 Ordered By: Leopoldo Archer Admission Data Admit Date/Time: 05/06/23 23:44 Attending Provider: Leopoldo Archer Admit Provider: Gisell Jones Primary Care Provider: Ronnie Jack Other Providers: Clinton Prasad; Dante Rosenbaum Jr Coding Level of Care Code 75221 INP/OBS DISCH >30 MIN Diagnoses Lower gastrointestinal hemorrhage K92.2 Acute blood loss anemia D62 Lupus M32.9 Essential hypertension I10 Hyperkalemia E87.5
== END 2023-05-08 16:22 | disposition home or self-care (01) | DRG 378 ==
LOC: ED 20:01 → EDINP 23:44 → SUATTDRO 23:44 → 2S 05-07 01:28

== ENCOUNTER 2023-12-06 12:15 | Inpatient (IN) ==
[2023-12-06 13:05] LABS: Basophils # (auto) 0.03 K/uL (0.00-0.20); Basophils % (auto) 0.2 %; Eosinophils # (auto) 0.06 K/uL (0.00-0.50); Eosinophils % (auto) 0.5 %; Hematocrit (blood only) 34.3 % (37.0-47.0); Hemoglobin 10.2 g/dl (12.0-16.0); Immature Granulocytes # (auto) 0.07 K/uL (0.01-0.20); Immature Granulocytes % (auto) 0.6 %; Lymphocytes # (auto) 0.62 K/uL (1.20-3.40); Lymphocytes % (auto) 5.1 %; Mean Corpuscular Hemoglobin 22.1 pg (25.0-34.0); Mean Corpuscular Hgb Conc 29.7 g/dL (32.0-36.0); Mean Corpuscular Volume 74.2 fL (80.0-100.0); Mean Platelet Volume 10.9 fL (9.4-12.4); Monocytes % (auto) 5.7 %; Neutrophils # (auto) 10.72 K/uL (1.40-6.50); Neutrophils % (auto) 87.9 %; Platelet Count 266 K/uL (130-400); RDW Coefficient of Variation 20.4 % (11.5-14.5); RDW Standard Deviation 53.8 fL (36.4-46.3); Red Blood Count 4.62 M/uL (4.20-5.40)
[2023-12-06 13:12] LABS: Albumin Globulin Ratio 1.5 (0.9-2); BUN Creatinine Ratio 35.9 (10-20); Bilirubin,Total 0.4 mg/dl (0.2-1.0); Calcium 8.9 mg/dl (8.6-10.3); Creatinine Clr Calc Pharmacy 39.1 ml/min; Est GFR (African American) 79.8 ml/min; Est GFR (Non-African American) 68.8 ml/min; Globulin 2.7 gm/dl (2.5-4.0); Magnesium 2.2 mg/dl (1.7-2.4); Potassium 4.1 mmol/L (3.5-5.1); Total Protein 6.7 gm/dl (6.0-8.3)
[2023-12-06 13:18] LABS: Troponin I High Sensitivity 11.6 pg/ml (0-14)
[2023-12-06 13:23] LABS: Anisocytosis Present; Hypochromasia Present; Microcytosis Present; Ovalocytes 1+; Polychromasia 1+
[2023-12-06 13:28] LABS: Thyroid Stimulating Hormone 2.321 uIu/ml (0.300-4.500)
[2023-12-06 13:30] LABS: Phosphorus 3.2 mg/dl (2.5-4.9)
[2023-12-06] MEDS: SODIUM CHLORIDE 0.9% 1,000 ML IV SCH (13:33)
--- NOTE | 2023-12-06 13:49 | Emergency Department Note ---
Impression & Plan Second degree AV block, Syncope, Contusion of scalp ED Provider Note NAME: AIDA WOLFE AGE: 88 SEX: F : 1935 ARRIVES VIA: Ambulance INFORMANT: Patient ED PROVIDER(S): Tyree Schaffer MD CHIEF COMPLAINT: Syncope PLAN: Disposition: Admit MEDICAL DECISION MAKING: The patient is a pleasant 88-year-old woman with a past medical history of arthritis who presents to the emergency department via EMS and accompanied by her daughter for evaluation of syncope which occurred. This morning where the patient reports recollection of having breakfast and then going to patient. Patient is away but then woke up on the ground. She is able to crawl and get herself into a chair when friends came by and explained what happened and contacted the patient's daughter. Patient reports she did hit the back of her head. She denies any preceding chest pain, shortness of breath. She reports no illness recently denies fevers, cough, congestion, GI or symptoms. On evaluation the patient is no distress, afebrile with heart rate in the 40s- 50s with intermittent second-degree AV block Mobitz type I (Wenckebach) and vital signs otherwise stable. She appears clinically dry. She has minor contusion of the posterior parietal scalp without laceration. She has mild tenderness of the right lateral chest wall without bony crepitus or ecchymosis. EKG demonstrates second-degree AV block Mobitz type I without overt ST elevation or depression, QTc 412, QRS 130. Chest x-ray negative for acute cardiopulmonary process. New right upper lobe nodular opacity is described. WBC 12.2 K with neutrophil predominance but no left shift and lymphopenia at 0.62, nonspecific. H/H 10.2/34.3 with MCV of 74 similar to prior values. Chemistry without anabolic acidosis. BUNs/creatinine is 35, consistent with patient's clinical dry appearance. Electrolytes LFTs unremarkable. High- sensitivity troponin is 11.6, within normal limits. TSH 2.3, within normal limits. UA without evidence of infection. Lyme screen was negative. CT of the head negative for ICH, ischemia or traumatic findings. CT C-spine negative for fracture or dislocation. Given the patient's syncope in the setting of second- degree AV block Mobitz type I patient and daughter agree with plan for admission for further management Case was discussed with TALHA Mota PAC, with TALHA Venegas hospitalist who will evaluate the patient for admission. Further management per admitting team. Triage Nursing notes reviewed and agree them. Prior/external medical records reviewed Vital Signs: reviewed Differential diagnosis: Vasovagal event, dehydration, infection, hypoglycemia, electrolyte abnormalities, cardiac sources, intracerebral event, pulmonary embolism, seizure, toxicologic, neurologic, as well as other pathologies. ER treatment provided: See below. Diagnostics interpreted by me: ECG: Sinus rhythm 50 bpm, second-degree AV block, Mobitz type I, LVH, no overt ST elevation or depression, QTc 412, QRS 130. Cardiac Monitoring: An order for continuous cardiac monitoring was placed and demonstrated Sinus rhythm 50 bpm, second-degree AV block, Mobitz type I Laboratory studies: See below Imaging studies: See below Consultation(s): Case was discussed with TALHA Mota PAC, with TALHA Venegas hospitalist who will evaluate the patient for admission. HPI: The patient is a pleasant 88-year-old woman with a past medical history of arthritis who presents to the emergency department via EMS and accompanied by her daughter for evaluation of syncope which occurred. This morning where the patient reports recollection of having breakfast and then going to patient. Patient is away but then woke up on the ground. She is able to crawl and get herself into a chair when friends came by and explained what happened and contacted the patient's daughter. Patient reports she did hit the back of her head. She denies any preceding chest pain, shortness of breath. She reports no illness recently denies fevers, cough, congestion, GI or symptoms. ROS: See above HPI for pertinent positives & negatives. A total of 10 systems reviewed and were otherwise negative. VITALS:See Below PHYSICAL EXAMINATION: GENERAL: Awake, alert, fatigued appearing, in no distress HENT: Normocephalic, mild posterior parietal scalp contusion without bony crepitus... Oropharynx with dry mucous membranes and otherwise unremarkable. EYES: Normal conjunctiva. Sclera non-icteric. NECK: Supple. No nuchal rigidity. FROM. No JVD. RESPIRATORY: Clear to auscultation. CARDIAC: Bradycardic rate, irregular rhythm. Extremities warm and well perfused. Pulses equal. ABDOMEN: Soft, non-distended. No tenderness to palpation. No rebound or guarding. No masses. MUSCULOSKELETAL: Chest examination reveals no tenderness. The back is symmetrical on inspection without obvious abnormality. There is no CVA tenderness to palpation. No joint edema. LOWER EXTREMITIES: Calves are equal size bilaterally and non-tender. No edema. No discoloration. NEURO: Normal sensorium. No sensory or motor deficits noted. SKIN: No rash or jaundice noted. ED COURSE: Critical Care: I have personally spent greater than 35 minutes of critical care time in the direct management of this patient. This includes bedside care, interpretation of diagnostic studies, and testing, discussion with consultants, patient, and family members, and other required patient management activities. This 35 minutes is in excess of all separately billable procedures. Tyree Schaffer MD Past Med/Surg History Problem List (Updated 12/06/23 @ 21:35 by Tyree Schaffer MD) Contusion of scalp (Acute) Anemia Chest x-ray abnormality Second degree AV block (Acute) Syncope (Acute) Impacted cerumen Hyperkalemia Acute blood loss anemia Lower gastrointestinal hemorrhage (Acute) Medical History Essential hypertension History of blood clots Arthritis Lobular carcinoma in situ (LCIS) of right breast Hx of renal calculi lt. History of cataract DVT (deep venous thrombosis) 1977, 1988, resolved Shingles 2001 Lupus Surgical History H/O breast surgery (09/18/21) Needle localization right breast biopsy x2 Dr. 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 Family History Daughter Breast cancer Her daughter was recently diagnosed with triple negative breast cancer and required segmental mastectomy radiation therapy and chemotherapy. 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 Required: No Beliefs That Will Affect Care: None marital status: / Current Living Situation: Alone Current Living Situation Comment: Apartment How many Children do You have: 1 Other Information That Helps Us Care for You: No Feels Safe at Home: Yes Safety Concerns: Feels Safe At This Time Diet: regular during the past year weight has: remained stable Assistive Devices: Glasses and Walker Allergies Allergies Allergy/AdvReac Type Severity Reaction Status Date / Time adhesive Allergy Unknown Verified 12/06/23 15:28 silicone AdvReac brock Verified 12/06/23 15:28 Home Meds Home Medications Medication Instructions Recorded Confirmed aspirin 81 mg tablet,delayed 81 mg PO QAM 06/05/20 12/06/23 release (Ecotrin Low Strength) glucosamine sulfate 500 mg tablet 500 mg PO BID 06/05/20 12/06/23 (Glucosamine) multivitamin with minerals 1 tab PO DAILY 06/05/20 12/06/23 (Multiple Vitamin-Minerals tablet) naproxen 250 mg tablet 250 mg PO BID PRN arthritis 05/06/23 12/06/23 vitamin E 268 mg (400 unit) capsule 268 mg PO DAILY 05/06/23 12/06/23 lisinopril 5 mg tablet 5 mg PO DAILY 12/06/23 12/06/23 Results & Data (ED) Vital Signs Vital Signs - 24 hr 12/06/23 12:16 12/06/23 12:27 12/06/23 12:33 Temperature 36.4 C L Temperature Source Oral Pulse Rate 70 56 L 77 Pulse Rate [Apical] Pulse Rate from SpO2 Sensor Pulse Rhythm [Apical] Respiratory Rate 18 19 Respiratory Effort / Characteristics Non-Labored Spontaneous Respiratory Depth Normal Respiratory Pattern Regular Blood Pressure 164/82 H Blood Pressure [Right Arm] Blood Pressure Mean 109 Blood Pressure Mean [Right Arm] Blood Pressure Position Semi-fowlers Blood Pressure Position [Right Arm] Pulse Oximetry 100 97 Oxygen Delivery Method Room Air Room Air Sepsis Recent Fever Within 48 Hours No Sepsis New/Unexplained Change in Mental Status No Sepsis Action Taken by Nursing No Action Required 12/06/23 12:36 12/06/23 12:41 12/06/23 13:00 Temperature Temperature Source Pulse Rate 69 Pulse Rate [Apical] 53 L Pulse Rate from SpO2 Sensor Pulse Rhythm [Apical] Regular Respiratory Rate 16 20 Respiratory Effort / Characteristics Non-Labored Spontaneous Respiratory Depth Normal Respiratory Pattern Regular Blood Pressure Blood Pressure [Right Arm] 142/76 H Blood Pressure Mean Blood Pressure Mean [Right Arm] 98 Blood Pressure Position Blood Pressure Position [Right Arm] Semi-fowlers Pulse Oximetry 100 97 97 Oxygen Delivery Method Room Air Room Air Room Air Sepsis Recent Fever Within 48 Hours Sepsis New/Unexplained Change in Mental Status Sepsis Action Taken by Nursing 12/06/23 13:00 12/06/23 13:00 12/06/23 13:15 Temperature Temperature Source Pulse Rate 59 L 63 Pulse Rate [Apical] Pulse Rate from SpO2 Sensor 45 L 63 Pulse Rhythm [Apical] Respiratory Rate 21 Respiratory Effort / Characteristics Respiratory Depth Respiratory Pattern Blood Pressure 140/78 139/83 Blood Pressure [Right Arm] Blood Pressure Mean 90 116 Blood Pressure Mean [Right Arm] Blood Pressure Position Blood Pressure Position [Right Arm] Pulse Oximetry 98 Oxygen Delivery Method Sepsis Recent Fever Within 48 Hours Sepsis New/Unexplained Change in Mental Status Sepsis Action Taken by Nursing 12/06/23 13:15 12/06/23 13:18 12/06/23 13:21 Temperature Temperature Source Pulse Rate 76 Pulse Rate [Apical] Pulse Rate from SpO2 Sensor 70 76 Pulse Rhythm [Apical] Respiratory Rate 26 H 24 Respiratory Effort / Characteristics Respiratory Depth Respiratory Pattern Blood Pressure 139/83 Blood Pressure [Right Arm] Blood Pressure Mean 116 Blood Pressure Mean [Right Arm] Blood Pressure Position Blood Pressure Position [Right Arm] Pulse Oximetry 98 99 Oxygen Delivery Method Sepsis Recent Fever Within 48 Hours Sepsis New/Unexplained Change in Mental Status Sepsis Action Taken by Nursing 12/06/23 13:30 12/06/23 13:31 12/06/23 13:45 Temperature Temperature Source Pulse Rate 50 L 78 Pulse Rate [Apical] Pulse Rate from SpO2 Sensor 80 77 Pulse Rhythm [Apical] Respiratory Rate 21 17 Respiratory Effort / Characteristics Respiratory Depth Respiratory Pattern Blood Pressure 151/72 H Blood Pressure [Right Arm] Blood Pressure Mean 110 Blood Pressure Mean [Right Arm] Blood Pressure Position Blood Pressure Position [Right Arm] Pulse Oximetry 99 98 Oxygen Delivery Method Sepsis Recent Fever Within 48 Hours Sepsis New/Unexplained Change in Mental Status Sepsis Action Taken by Nursing 12/06/23 13:51 12/06/23 14:45 12/06/23 15:00 Temperature Temperature Source Pulse Rate 49 L 105 H 85 Pulse Rate [Apical] Pulse Rate from SpO2 Sensor 53 L 78 77 Pulse Rhythm [Apical] Respiratory Rate 19 16 Respiratory Effort / Characteristics Respiratory Depth Respiratory Pattern Blood Pressure 160/77 H Blood Pressure [Right Arm] Blood Pressure Mean 128 Blood Pressure Mean [Right Arm] Blood Pressure Position Blood Pressure Position [Right Arm] Pulse Oximetry 95 96 Oxygen Delivery Method Room Air Sepsis Recent Fever Within 48 Hours Sepsis New/Unexplained Change in Mental Status Sepsis Action Taken by Nursing 12/06/23 15:15 12/06/23 15:21 12/06/23 15:24 Temperature Temperature Source Pulse Rate 93 H 106 H Pulse Rate [Apical] 65 Pulse Rate from SpO2 Sensor 75 71 Pulse Rhythm [Apical] Respiratory Rate 26 H 21 14 Respiratory Effort / Characteristics Non-Labored Spontaneous Respiratory Depth Normal Respiratory Pattern Regular Blood Pressure Blood Pressure [Right Arm] 160/77 H Blood Pressure Mean Blood Pressure Mean [Right Arm] 104 Blood Pressure Position Blood Pressure Position [Right Arm] Pulse Oximetry 100 98 100 Oxygen Delivery Method Room Air Sepsis Recent Fever Within 48 Hours Sepsis New/Unexplained Change in Mental Status Sepsis Action Taken by Nursing 12/06/23 15:30 12/06/23 15:30 Temperature Temperature Source Pulse Rate 60 60 Pulse Rate [Apical] Pulse Rate from SpO2 Sensor 58 L 58 L Pulse Rhythm [Apical] Respiratory Rate 23 Respiratory Effort / Characteristics Respiratory Depth Respiratory Pattern Blood Pressure 143/67 H Blood Pressure [Right Arm] Blood Pressure Mean 116 Blood Pressure Mean [Right Arm] Blood Pressure Position Blood Pressure Position [Right Arm] Pulse Oximetry 98 Oxygen Delivery Method Sepsis Recent Fever Within 48 Hours Sepsis New/Unexplained Change in Mental Status Sepsis Action Taken by Nursing Laboratory Data Attestation: I reviewed the patient's lab results. 12/06/23 12:27 12/06/23 12:27 Lab Results 12/06/23 12/06/23 Range/Units 12:27 13:45 WBC 12.20 H (4.8-10.8) K/ul RBC 4.62 (4.20-5.40) M/uL Hgb 10.2 L (12.0-16.0) g/dl Hct 34.3 L (37.0-47.0) % MCV 74.2 L (80.0-100.0) fL MCH 22.1 L (25.0-34.0) pg MCHC 29.7 L (32.0-36.0) g/dL RDW Std Deviation 53.8 H (36.4-46.3) fL RDW Coeff of Felicia 20.4 H (11.5-14.5) % Plt Count 266 (130-400) K/uL MPV 10.9 (9.4-12.4) fL Immature Gran % (Auto) 0.6 % Neut % (Auto) 87.9 % Lymph % (Auto) 5.1 % [place] % (Auto) 5.7 % Eos % (Auto) 0.5 % Baso % (Auto) 0.2 % Neut # (Auto) 10.72 H (1.40-6.50) K/uL Lymph # (Auto) 0.62 L (1.20-3.40) K/uL [place] # (Auto) 0.70 H (0.11-0.59) K/uL Eos # (Auto) 0.06 (0.00-0.50) K/uL Baso # (Auto) 0.03 (0.00-0.20) K/uL Immature Gran # (Auto) 0.07 (0.01-0.20) K/uL Polychromasia 1+ Hypochromasia Present Anisocytosis Present Microcytosis Present Ovalocytes 1+ Sodium 138 (136-145) mmol/L Potassium 4.1 (3.5-5.1) mmol/L Chloride 107 (98-107) mmol/L Carbon Dioxide 23 (21-32) mmol/L Anion Gap 8 (3-11) BUN 28 H (6-23) mg/dl Creatinine 0.78 (0.6-1.2) mg/dl Est Cr Clr Drug Dosing 39.1 ml/min Est GFR ( Amer) 79.8 ml/min Est GFR (Non-Af Amer) 68.8 ml/min BUN/Creatinine Ratio 35.9 H (10-20) Glucose 157 H (70-99(Fasting)) mg/dl Calcium 8.9 (8.6-10.3) mg/dl Phosphorus 3.2 (2.5-4.9) mg/dl Magnesium 2.2 (1.7-2.4) mg/dl Iron 14 L (35-150) mcg/dl TIBC 373 (250-450) mcg/dl Unsaturated IBC 359 H (155-355) mcg/dl Transferrin % Sat 4 L (15-50) % Total Bilirubin 0.4 (0.2-1.0) mg/dl AST 19 (13-39) U/L ALT 13 (7-52) U/L Alkaline Phosphatase 93 (34-104) U/L Troponin I High Sens 11.6 (0-14) pg/ml Total Protein 6.7 (6.0-8.3) gm/dl Albumin 4.0 (3.4-5.0) gm/dl Globulin 2.7 (2.5-4.0) gm/dl Albumin/Globulin Ratio 1.5 (0.9-2) Vitamin B12 698 (180-914) pg/ml Folate > 22.30 (>5.38) ng/ml TSH 2.321 (0.300-4.500) uIu/ml Urine Color Yellow Urine Appearance Clear (Clear) Urine pH 6.0 (4.5-7.5) Ur Specific [place] 1.018 (1.000-1.030) Urine Protein Negative (Negative) Urine Glucose (UA) Negative (Negative) Urine Ketones Negative (Negative) Urine Blood Negative (Negative) Urine Nitrite Negative (Negative) Urine Bilirubin Negative (Negative) Urine Urobilinogen Negative (Negative) Ur Leukocyte Esterase Trace H (Negative) Urine WBC (Auto) 0-5 (0-5) /hpf Urine RBC (Auto) 0-2 (0-2) /hpf U Hyaline Cast (Auto) 0-2 (0-2) /lpf U Epithel Cells (Auto) 0-2 (0-2) /hpf Urine Bacteria (Auto) None Seen (None Seen) Lyme Disease Screen Negative (Negative) Administered Medications Discontinued Medications Sodium Chloride (Nss) 1,000 mls @ 125 mls/hr IV .Q8H DAR Stop: 12/06/23 16:59 Last Infusion: 12/06/23 18:06 Dose: Infused Documented By: Admin: 12/06/23 13:33 Dose: 125 mls/hr Documented By: NRB Imaging Data Radiologist's Impression: Chest X-Ray 12/06/23 12:53 XR chest 1V portable HISTORY: 88 years-old Female syncope acute syncope with chest trauma COMPARISON: None TECHNIQUE: AP view of the chest FINDINGS: Cardiac silhouette is enlarged. Hiatal hernia. Pulmonary vascular congestion with interstitial coarsening. Pleural parenchymal scarring of the lung apices. No pneumothorax. Trace pleural effusions. There is a 1.4 cm right apical nodule. Degenerative changes of the shoulders and spine. Left axillary surgical clips. IMPRESSION: 1. Cardiomegaly with pulmonary vascular congestion and trace pleural effusions. 2. Hiatal hernia. 3. 1.4 cm right apical nodular opacity may represent a nodule versus scarring. ACT 112: Negative or not required by law. The above report was generated using voice recognition software. It may contain grammatical, syntax or spelling errors. Electronically signed by: Jacques Luna M.D. 12/06/2023 2:[address] 12/06/23 13:48 CT head/brain wo con CLINICAL HISTORY: 88 years-old Female with syncope, headstrike. Acute syncope with head trauma TECHNIQUE: Multiple axial CT images of the head were obtained without contrast. A dose lowering technique was utilized adhering to the principles of ALARA. COMPARISON: CT cervical spine same day FINDINGS: No acute intracranial hemorrhage, midline shift, intracranial mass, hydrocephalus, territorial ischemia or abnormal extra-axial collection. Involutional changes with chronic microvascular ischemic disease. The calvarium is intact. Right parietal scalp contusion/hematoma. The paranasal sinuses, mastoid air cells, and middle ear cavities are clear. IMPRESSION: Scalp contusion without acute intracranial abnormality or calvarial fracture ACT 112: Negative or not required by law. The above report was generated using voice recognition software. It may contain grammatical, syntax or spelling errors. Electronically signed by: Jacques Luna M.D. 12/06/2023 2:[address] 12/06/23 13:49 CT cervical spine wo con CT DOSE: 944.11 mGy.cm CLINICAL HISTORY: 88 years-old Female with fall, pain. Acute neck pain status post fall COMPARISON: Head CT of same day TECHNIQUE: Multiple axial CT images of the cervical spine were obtained without contrast. A dose lowering technique was utilized adhering to the principles of ALARA. FINDINGS: The demineralized appearance of the bones. Mild to moderate disc space narrowing with vacuum disc phenomena at C5-C6 and C6/C7. [id number] multilevel facet arthrosis. Severe degeneration of the temporomandibular joints. The cervical soft tissues appear unremarkable. Note is made of asymmetric atrophy involving the left parotid gland. Asymmetric irregular opacities of the right lung apex suggestive of pleural-parenchymal scarring measuring up to 4.1 cm in AP dimension and image 67 series 2. No pneumothorax. IMPRESSION: 1. No acute cervical spine fracture or subluxation. 2. Asymmetric right apical densities favor pleural parenchymal scarring. Without comparison available, a precautionary three-month follow-up chest CT recommended. ACT 112: Negative or not required by law. The above report was generated using voice recognition software. It may contain grammatical, syntax or spelling errors. Electronically signed by: Jacques Luna M.D. 12/06/2023 2:55 PM Discharge Plan Visit Data Chief Complaint: Syncope Stated Complaint: FALL, RIB PAIN ED Provider: Tyree Schaffer Discharge Problem: Second degree AV block, Syncope, Contusion of scalp Patient Disposition: Admitted As Inpatient Discharge Instructions Interventions: ED Discharge Assessment Last Done: 12/06/23 15:58 Discharge Problem: Syncope Qualifiers: Syncope type: unspecified Qualified Code(s): R55 - Syncope and collapse Contusion of scalp Qualifiers: Encounter type: initial encounter Qualified Code(s): S00.03XA - Contusion of scalp, initial encounter
[2023-12-06 13:56] LABS: Appearance Urine Clear (Clear); Bacteria Urine Automated None Seen (None Seen); Bilirubin Urine Negative (Negative); Blood Urine Negative (Negative); Cast Urine Automated 0-2 /lpf (0-2); Color Urine Yellow; Epithelial Cell Urine Auto 0-2 /hpf (0-2); Glucose Urine UA Negative (Negative); Ketones Urine Negative (Negative); Leukocyte Esterase Urine Trace (Negative); Nitrite Urine Negative (Negative); Protein Urine Negative (Negative); RBC Urine Automated 0-2 /hpf (0-2); Specific Gravity Urine 1.018 (1.000-1.030); Urobilinogen Urine Negative (Negative); WBC Urine Automated 0-5 /hpf (0-5)
--- NOTE | 2023-12-06 14:14 | XRay Report ---
XR chest 1V portable HISTORY: 88 years-old Female syncope acute syncope with chest trauma COMPARISON: None TECHNIQUE: AP view of the chest FINDINGS: Cardiac silhouette is enlarged. Hiatal hernia. Pulmonary vascular congestion with interstitial coarse mathew. Pleural parenchymal scarring of the lung apices. No pneumothorax. Trace pleural effusions. Ther e is a 1.4 cm right apical nodule. Degenerative changes of the shoulders and spine. Left axillary mikki gical clips. IMPRESSION: 1. Cardiomegaly with pulmonary vascular congestion and trace pleural effusions. 2. Hiatal hernia. 3. 1.4 cm right apical nodular opacity may represent a nodule versus scarring. ACT 112: Negative or not required by law. The above report was generated using voice recognition software. It may contain grammatical, syntax o r spelling errors. Electronically signed by: Jacques Luna M.D. 12/06/2023 2:12 PM
--- NOTE | 2023-12-06 14:49 | CT Scan Report ---
CT head/brain wo con CLINICAL HISTORY: 88 years-old Female with syncope, headstrike. Acute syncope with head trauma TECHNIQUE: Multiple axial CT images of the head were obtained without contrast. A dose lowering tech nique was utilized adhering to the principles of ALARA. COMPARISON: CT cervical spine same day FINDINGS: No acute intracranial hemorrhage, midline shift, intracranial mass, hydrocephalus, territorial ischem ia or abnormal extra-axial collection. Involutional changes with chronic microvascular ischemic disea se. The calvarium is intact. Right parietal scalp contusion/hematoma. The paranasal sinuses, mastoid air cells, and middle ear cavities are clear. IMPRESSION: Scalp contusion without acute intracranial abnormality or calvarial fracture ACT 112: Negative or not required by law. The above report was generated using voice recognition software. It may contain grammatical, syntax o r spelling errors. Electronically signed by: Jacques Luna M.D. 12/06/2023 2:47 PM
--- NOTE | 2023-12-06 14:58 | CT Scan Report ---
CT cervical spine wo con CT DOSE: 944.11 mGy.cm CLINICAL HISTORY: 88 years-old Female with fall, pain. Acute neck pain status post fall COMPARISON: Head CT of same day TECHNIQUE: Multiple axial CT images of the cervical spine were obtained without contrast. A dose low ering technique was utilized adhering to the principles of ALARA. FINDINGS: The demineralized appearance of the bones. Mild to moderate disc space narrowing with vacuu m disc phenomena at C5-C6 and C6/C7. [id number] multilevel facet arthrosis. Severe degeneration of the temporomandibular joints. The cervical soft tissues appear unremarkable. Note is made of asymmetric atrophy involving the left parotid gland. Asymmetric irregular opacities of the right lung apex suggestive of pleural-parenchyma l scarring measuring up to 4.1 cm in AP dimension and image 67 series 2. No pneumothorax. IMPRESSION: 1. No acute cervical spine fracture or subluxation. 2. Asymmetric right apical densities favor pleural parenchymal scarring. Without comparison available , a precautionary three-month follow-up chest CT recommended. ACT 112: Negative or not required by law. The above report was generated using voice recognition software. It may contain grammatical, syntax o r spelling errors. Electronically signed by: Jacques Luna M.D. 12/06/2023 2:55 PM
--- NOTE | 2023-12-06 15:30 | History & Physical Report ---
Date of Service December 06, 2023 Assessment & Plan (1) Syncope: Plan: Admit to the PCU on telemetry Currently stable and nontoxic-appearing Presented to the ED via EMS after experiencing a syncopal episode at home earlier today Patient explained that she quickly lost consciousness without much warning while ambulating in her kitchen, she did hit the posterior right aspect of her head but is otherwise without trauma At this time the most likely etiology of her syncopal episode is arrhythmia as she has been noted at times to be in type I second-degree AV block on ECG and telemetry, this is new for her Labs are otherwise unremarkable Will continue to monitor on telemetry and obtain TTE Will consult cardiology for further evaluation and discussion of treatment options going forward Fall/aspiration precautions Heart healthy diet Bilateral SCDs for DVT prophylaxis AM CBC, CMP, mag, PT/ (2) Second degree AV block: Plan: See syncope plan (3) Essential hypertension: Plan: Currently stable Continue home lisinopril for now as she has been without signs of hypotension and has been mildly hypertensive since arrival (4) Chest x-ray abnormality: Plan: Chest x-ray and CT vesicle spine note right apical abnormality representing possible nodule versus scar tissue Please show patient has outpatient follow-up CT of the chest scheduled within 3 months of discharge (5) Anemia: Plan: Patient has a drop in MCV from 99 and May of this year to 74 today with MCHC of 29 Hemoglobin is stable She has a known history of iron deficiency anemia from previous GI bleeds BUN is mildly elevated today but patient denies recent melena or bright red blood per rectum Will obtain anemia panel with B12 and folic acid levels as well Monitor daily CBC Plan Patient was discussed with Dr. Flores at the time of admission History of Present Illness Chief Complaint: syncopal episode Primary Care Provider: Ronnie Jack MD April Finkmbaugh is a 88 year-old female with past medical history of breast cancer, arthritis, HTN, and Lupus who presented to [facility] ED on 12/06/2023 via EMS after experiencing a syncopal episode at home earlier this morning. On arrival to the ED patient was noted to be bradycardic with heart rate in the 40s to 50s but otherwise stable. Labs were significant for a leukocytosis of 12 with neutrophil predominance of 10, MCV of 74, MCHC of 29, BUN of 28, high-sensitivity troponin within normal limits, UA with trace leukocyte Estrace but otherwise unremarkable, and negative Lyme disease screen negative. CTA head and brain without contrast noted a right parietal scalp contusion/hematoma but was otherwise negative for acute findings. CT of the cervical spine was negative for acute trauma but did mention asymmetric right apical densities favoring pleural parenchymal scarring. Without comparison available a precautionary 3-month follow-up chest CT is recommended. Chest x- ray was read as showing cardiomegaly with pulmonary vascular congestion and trace pleural effusions. Hiatal hernia. 1.4 cm right apical nodular opacity may represent nodule versus scarring. Of note, while the patient was in the ED she had an ECG and telemetry monitoring showing new second-degree AV block (Mobitz type I). Prior to admission the patient was given 1 L normal saline. Patient was sitting in bed no acute distress at time of exam with her daughter bedside, history is obtained from both. The patient explains that she woke this morning at approximately 7 AM in her normal state of health. Her daughter came over around 730 to help her shower and to help clean the house. Her daughter says that while she was there from approximately 7:30 until approximately 9 AM the patient was in her normal state health. The patient confirms that she ate breakfast and took her morning medications including her a.m. dose of aspirin and lisinopril. Around 9:30 AM the patient stayed she was walking from one side of her kitchen to the other when she suddenly lost consciousness. Patient states that this happened quickly, shortly prior to losing consciousness she says she felt a bit lightheaded but denied the room spinning, chest pain, shortness of breath, or palpitations. She is unsure how long she was out for but remembers waking on the ground and crawling to the rich r to lift herself up. She was then able to walk to the living room and sat on her recliner. Some of her friends came over later in the morning and when they heard this event they called her daughter who then called EMS to have her brought to the hospital. The patient currently feels well besides a mild headache at the right lateral scalp where she hit her head. Denies recent fever, chills, chest pain, shortness of breath, abdominal pain, nausea/vomiting, dysuria/hematuria, melena, bloody bowel movements, lower extremity swelling. We discussed CODE STATUS, they confirmed that she has a DNR/DNI and her daughter would make medical decisions for her if she cannot make decisions for self. Please for Dr. Flores's attestation for any changes to the treatment plan Allergies Allergy/AdvReac Type Severity Reaction Status Date / Time adhesive Allergy Unknown Verified 12/06/23 15:28 silicone AdvReac brock Verified 12/06/23 15:28 Home Medications Medication Instructions Recorded Confirmed Type aspirin 81 mg tablet,delayed 81 mg PO QAM 06/05/20 12/06/23 History release (Ecotrin Low Strength) glucosamine sulfate 500 mg tablet 500 mg PO BID 06/05/20 12/06/23 History (Glucosamine) multivitamin with minerals 1 tab PO DAILY 06/05/20 12/06/23 History (Multiple Vitamin-Minerals tablet) naproxen 250 mg tablet 250 mg PO BID PRN arthritis 05/06/23 12/06/23 History vitamin E 268 mg (400 unit) capsule 268 mg PO DAILY 05/06/23 12/06/23 History lisinopril 5 mg tablet 5 mg PO DAILY 12/06/23 12/06/23 History Past Med/Surg History Problem List Contusion of scalp (Acute) Anemia Chest x-ray abnormality Second degree AV block (Acute) Syncope (Acute) Impacted cerumen Hyperkalemia Acute blood loss anemia Lower gastrointestinal hemorrhage (Acute) Medical History Essential hypertension History of blood clots Arthritis Lobular carcinoma in situ (LCIS) of right breast Hx of renal calculi lt. History of cataract DVT (deep venous thrombosis) 1988, resolved Shingles 2001 Lupus Surgical History H/O breast surgery (09/18/21) Needle localization right breast biopsy x2 Dr. 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 Family History Daughter Breast cancer Her daughter was recently diagnosed with triple negative breast cancer and required segmental mastectomy radiation therapy and chemotherapy. Sister Hypertension Father Hypertension Grandfather (Paternal) Stroke Grandfather (Maternal) Hypertension Brother Hypertension Other Heart disease Denies family history of Ovarian cancer Colorectal cancer Social History Smoking Status: Never smoker Second Hand Exposure: No; Do You Dip or Chew Tobacco: No; Hx Alcohol Use: No Hx Substance Use: No Preferred Language: Greenlandic Communication Ability: Effective Test Eng Required: No Beliefs That Will Affect Care: None marital status: / Current Living Situation: Alone Current Living Situation Comment: Apartment How many Children do You have: 1 Other Information That Helps Us Care for You: No Feels Safe at Home: Yes Safety Concerns: Feels Safe At This Time Diet: regular during the past year weight has: remained stable Assistive Devices: Glasses and Walker Physical Exam Physical Exam: Physical Exam: General: In no acute distress, stated age, well-nourished, good hygiene HEENT: Normocephalic, patient with mild bruising in the posterior right scalp without crepitus on palpation, no scleral icterus, pupils around round, symmetrical, and reactive to light, moist mucus membranes, trachea midline, no thyromegaly Chest/Pulm: No respiratory distress, symmetrical chest expansion, clear breath sounds throughout Cardiac: RRR, 3/6 systolic murmur noted Abdomen: Negative for ascites and bruising, normoactive bowel sounds, soft, non-tender to palpation throughout Musculoskeletal: Symmetrical and without signs of acute trauma, upper and lower extremities with full ROM, no atrophy, spasticity, or flaccidity Extremities: Radial, dorsalis pedis, and posterior tibial pulses are intact and symmetrical, no edema noted in the BL LE's Skin: Warm, dry, no rashes , lesions, or scars noted Neuro: Alert and oriented to person, place, month, year, and president, no focal defects, no tremors noted Psych: No acute distress, calm and cooperative during the exam Results & Data Results & Data Vital Signs (Past 12 Hours) Vital Signs Temp Pulse Pulse Resp BP BP Pulse Ox 12/06/23 13:51 49 L 19 95 12/06/23 13:45 78 17 98 12/06/23 13:31 151/72 H 12/06/23 13:30 50 L 21 99 12/06/23 13:21 76 24 99 12/06/23 13:18 26 H 98 12/06/23 13:15 139/83 12/06/23 13:15 63 139/83 12/06/23 13:00 59 L 21 98 12/06/23 13:00 140/78 12/06/23 13:00 69 20 97 12/06/23 12:41 97 12/06/23 12:36 53 L 16 142/76 H 100 12/06/23 12:33 77 12/06/23 12:27 56 L 19 97 12/06/23 12:16 36.4 C L 70 18 164/82 H 100 O2 Del Method 12/06/23 13:51 Room Air 12/06/23 13:45 12/06/23 13:31 12/06/23 13:30 12/06/23 13:21 12/06/23 13:18 12/06/23 13:15 12/06/23 13:15 12/06/23 13:00 12/06/23 13:00 12/06/23 13:00 Room Air 12/06/23 12:41 Room Air 12/06/23 12:36 Room Air 12/06/23 12:33 12/06/23 12:27 Room Air 12/06/23 12:16 Room Air Laboratory Results Abnormal lab results 12/06/23 12/06/23 Range/Units 12:27 13:45 WBC 12.20 H (4.8-10.8) K/ul Hgb 10.2 L (12.0-16.0) g/dl Hct 34.3 L (37.0-47.0) % MCV 74.2 L (80.0-100.0) fL MCH 22.1 L (25.0-34.0) pg MCHC 29.7 L (32.0-36.0) g/dL RDW Std Deviation 53.8 H (36.4-46.3) fL RDW Coeff of Felicia 20.4 H (11.5-14.5) % Neut # (Auto) 10.72 H (1.40-6.50) K/uL Lymph # (Auto) 0.62 L (1.20-3.40) K/uL [place] # (Auto) 0.70 H (0.11-0.59) K/uL BUN 28 H (6-23) mg/dl BUN/Creatinine Ratio 35.9 H (10-20) Glucose 157 H (70-99(Fasting)) mg/dl Iron 14 L (35-150) mcg/dl Unsaturated IBC 359 H (155-355) mcg/dl Transferrin % Sat 4 L (15-50) % Ur Leukocyte Esterase Trace H (Negative) Diagnostic Findings Chest X-Ray 12/06/23 12:53 XR chest 1V portable HISTORY: 88 years-old Female syncope acute syncope with chest trauma COMPARISON: None TECHNIQUE: AP view of the chest FINDINGS: Cardiac silhouette is enlarged. Hiatal hernia. Pulmonary vascular congestion with interstitial coarsening. Pleural parenchymal scarring of the lung apices. No pneumothorax. Trace pleural effusions. There is a 1.4 cm right apical nodule. Degenerative changes of the shoulders and spine. Left axillary surgical clips. IMPRESSION: 1. Cardiomegaly with pulmonary vascular congestion and trace pleural effusions. 2. Hiatal hernia. 3. 1.4 cm right apical nodular opacity may represent a nodule versus scarring. ACT 112: Negative or not required by law. The above report was generated using voice recognition software. It may contain grammatical, syntax or spelling errors. Electronically signed by: Jacques Luna M.D. 12/06/2023 2:[address] 12/06/23 13:48 CT head/brain wo con CLINICAL HISTORY: 88 years-old Female with syncope, headstrike. Acute syncope with head trauma TECHNIQUE: Multiple axial CT images of the head were obtained without contrast. A dose lowering technique was utilized adhering to the principles of ALARA. COMPARISON: CT cervical spine same day FINDINGS: No acute intracranial hemorrhage, midline shift, intracranial mass, hydrocep halus, territorial ischemia or abnormal extra-axial collection. Involutional changes with chronic microvascular ischemic disease. The calvarium is intact. Right parietal scalp contusion/hematoma. The paranasal sinuses, mastoid air cells, and middle ear cavities are clear. IMPRESSION: Scalp contusion without acute intracranial abnormality or calvarial fracture ACT 112: Negative or not required by law. The above report was generated using voice recognition software. It may contain grammatical, syntax or spelling errors. Electronically signed by: Jacques Luna M.D. 12/06/2023 2:[address] 12/06/23 13:49 CT cervical spine wo con CT DOSE: 944.11 mGy.cm CLINICAL HISTORY: 88 years-old Female with fall, pain. Acute neck pain status post fall COMPARISON: Head CT of same day TECHNIQUE: Multiple axial CT images of the cervical spine were obtained without contrast. A dose lowering technique was utilized adhering to the principles of ALARA. FINDINGS: The demineralized appearance of the bones. Mild to moderate disc space narrowing with vacuum disc phenomena at C5-C6 and C6/C7. [id number] multilevel facet arthrosis. Severe degeneration of the temporomandibular joints. The cervical soft tissues appear unremarkable. Note is made of asymmetric atrophy involving the left parotid gland. Asymmetric irregular opacities of the right lung apex suggestive of pleural-parenchymal scarring measuring up to 4.1 cm in AP dimension and image 67 series 2. No pneumothorax. IMPRESSION: 1. No acute cervical spine fracture or subluxation. 2. Asymmetric right apical densities favor pleural parenchymal scarring. Without comparison available, a precautionary three-month follow-up chest CT recommended. ACT 112: Negative or not required by law. The above report was generated using voice recognition software. It may contain grammatical, syntax or spelling errors. Electronically signed by: Jacques Luna M.D. 12/06/2023 2:55 PM Code Status & VTE Plan Code Status DNR/DNI VTE Prophylaxis Plan VTE Prophylaxis will be ordered: Yes Supervising Physician Co-Signing Physician Notes I personally saw and examined the patient. I verified all weeks points and agree with Severo Bee PA-C with the following exceptions and/or additions: 88 year old female presents to the ER with a syncopal event. Now having type 2 heart block switching between a Mobitz 1 and 2 on telemetry. No current symptoms O/E HS RRR (occasional dropped beat), systolic murmur LUSB, Chest CTAB, Abdo SNT A/P Syncope with 2nd degree heart blok - suspected cardiogenic with 2nd degree Mobitz type 1 and 2 on monitor, no CHB noted since admission. On no AV yuan blocking agents. Consult cardiology for consideration of pacemaker. Systolic murmur - TTE HTN - ok to continue lisinopril Otherwise as above PG Care Time/CCT Total # of Minutes Spent Total Time Spent with Patient: Total time spent is greater than 50% in coordination of care (as documented) at patient's floor/unit and/or counseling patient: Coding [place] [address] INT INP/OBS CARE 3/75MIN Patient Type Established Medical Decision Making High Complexity Diagnoses Syncope R55 Second degree AV block I44.1 Essential hypertension I10 Chest x-ray abnormality R93.89 Anemia D64.9
[2023-12-06 16:31] LABS: Folate (Folic Acid),Ser orPlas > 22.30 ng/ml (>5.38)
[2023-12-06 16:32] LABS: Vitamin B12 698 pg/ml (180-914)
[2023-12-07] MEDS: diphenhydrAMINE 2%/ZINC 0.1% CREAM 28.4GM TUBE EXT PRN (04:38)
[2023-12-07 05:41] LABS: Basophils # (auto) 0.03 K/uL (0.00-0.20); Basophils % (auto) 0.5 %; Eosinophils # (auto) 0.21 K/uL (0.00-0.50); Eosinophils % (auto) 3.7 %; Hematocrit (blood only) 32.1 % (37.0-47.0); Hemoglobin 9.4 g/dl (12.0-16.0); Immature Granulocytes # (auto) 0.02 K/uL (0.01-0.20); Immature Granulocytes % (auto) 0.4 %; Lymphocytes # (auto) 1.05 K/uL (1.20-3.40); Lymphocytes % (auto) 18.6 %; Mean Corpuscular Hemoglobin 21.6 pg (25.0-34.0); Mean Corpuscular Hgb Conc 29.3 g/dL (32.0-36.0); Mean Corpuscular Volume 73.8 fL (80.0-100.0); Mean Platelet Volume 10.5 fL (9.4-12.4); Monocytes % (auto) 14.2 %; Neutrophils # (auto) 3.54 K/uL (1.40-6.50); Neutrophils % (auto) 62.6 %; Platelet Count 227 K/uL (130-400); RDW Coefficient of Variation 20.3 % (11.5-14.5); Red Blood Count 4.35 M/uL (4.20-5.40); White Blood Count 5.65 K/ul (4.8-10.8)
[2023-12-07 05:59] LABS: Albumin Globulin Ratio 1.5 (0.9-2); Albumin Level 3.4 gm/dl (3.4-5.0); BUN Creatinine Ratio 31.6 (10-20); Bilirubin,Total 0.4 mg/dl (0.2-1.0); Calcium 8.4 mg/dl (8.6-10.3); Creatinine Clr Calc Pharmacy 38.6 ml/min; Est GFR (African American) 78.6 ml/min; Est GFR (Non-African American) 67.8 ml/min; Globulin 2.3 gm/dl (2.5-4.0); Magnesium 2.2 mg/dl (1.7-2.4); Total Protein 5.7 gm/dl (6.0-8.3)
[2023-12-07 06:02] LABS: Anisocytosis Present; Hypochromasia Present; Ovalocytes 1+; Polychromasia 1+
[2023-12-07 06:05] LABS: INR 1.1 (0.9-1.1); Prothrombin Time 11.4 Seconds (9.0-12.0)
[2023-12-07 06:18] LABS: Ferritin 6.2 ng/ml (8-388)
[2023-12-07] MEDS: ASPIRIN 81 MG ECTAB PO SCH (08:15)
[2023-12-07] MEDS: lisinopril 5 MG TAB PO SCH (08:16)
--- NOTE | 2023-12-07 09:15 | Cardiology Consultation ---
Date of Consultation December 07, 2023 Assessment & Plan (1) Second degree AV block: (2) Syncope: Plan ASSESSMENT/PLAN: 1. Second-degree AV block: Mobitz 1 with episodes of 2-1 AV block. Presented with syncope however. Lyme negative. Not on any AV yuan blocking agents. R ecommend pacemaker. Will communicate with electrophysiology for official EP input. N.p.o. after midnight in case pacemaker placement available tomorrow. Remain in bed. Temporary pacemaker is not necessary. She is completely asymptomatic while in bed. Avoid AV yuan blocking agents. 2. Syncope: Likely due to AV block as above. 3. Disposition: Discussed findings/recommendations with the patient at the bedside and her daughter via telephone as per her request. Patient agreeable to pursue pacemaker if deemed appropriate by electrophysiology. Patient care/recommendation discussed with primary hospitalist, Dr. Nieto. Highly complex medical issues. Thank you for allowing me to participate in the care of your patient. Please call for any other questions or concerns. Sincerely, Hector Beltran M.D. History of Present Illness Reason for Consultation: syncope, 2nd degree Heart block Requesting Physician: Everardo Flores MD Attending Physician: Yandel Nieto History of Present Illness Ms. Yanez is a very pleasant 88-year-old female with a history significant for lupus, hypertension, arthritis, and breast cancer (left mastectomy; no chemotherapy or XRT). She has a history of GI bleed while on meloxicam. She was hospitalized on 12/06/2023 after having an episode of syncope. On 12/06/2023, she took a shower at approximately 7:30 AM followed by breakfast. She then had a phone call with her niece. She got up from a seated position to go to the sink with her dishes and while up, had a syncopal event. She felt a little lightheaded throughout that morning which is a new symptom. She picked herself up off the floor and used her walker to ambulate to a lounge chair. Neighbors checked in on her, which is typical and then called her daughter. After discussion, she came to the hospital. Since being here, she has been okay in bed. She denies chest pain, shortness of breath, recurrent syncope, palpitations, melena, hematochezia, or hematuria. She has chronic lower extremity edema and follows with a vein doctor, Dr. Mckeon. She has undergone a vein procedure with her right leg in the past. She wears compression stockings. With a syncopal event, she hit the back of her head and also right sided/posterior ribs. She has not had syncope before. She denies outdoor activities or exposure to ticks. On presentation, she was noted to be in sinus with Mobitz 1. Her heart rate has been in the 30s at times. She is asymptomatic laying in bed. Review of systems: As above. Review of systems otherwise negative/unremarkable. Family history: Brother at 56 of unknown cause. Social history: She denies tobacco, alcohol, or drug abuse. Her in 2011. She has 1 daughter (Atul Hodge) who lives nearby. She has 3 grandsons. She lives at [facility]. She was unaccompanied. Allergies Allergy/AdvReac Type Severity Reaction Status Date / Time adhesive Allergy Unknown Verified 12/06/23 15:28 silicone AdvReac brock Verified 12/06/23 15:28 Home Medications Medication Instructions Recorded Confirmed Type aspirin 81 mg tablet,delayed 81 mg PO QAM 06/05/20 12/06/23 History release (Ecotrin Low Strength) glucosamine sulfate 500 mg tablet 500 mg PO BID 06/05/20 12/06/23 History (Glucosamine) multivitamin with minerals 1 tab PO DAILY 06/05/20 12/06/23 History (Multiple Vitamin-Minerals tablet) naproxen 250 mg tablet 250 mg PO BID PRN arthritis 05/06/23 12/06/23 History vitamin E 268 mg (400 unit) capsule 268 mg PO DAILY 05/06/23 12/06/23 History lisinopril 5 mg tablet 5 mg PO DAILY 12/06/23 12/06/23 History Problem List Contusion of scalp (Acute) Anemia Chest x-ray abnormality Second degree AV block (Acute) Syncope (Acute) Impacted cerumen Hyperkalemia Acute blood loss anemia Lower gastrointestinal hemorrhage (Acute) Patient History Medical History Essential hypertension History of blood clots Arthritis Lobular carcinoma in situ (LCIS) of right breast Hx of renal calculi lt. History of cataract DVT (deep venous thrombosis) 1977, 1988, resolved Shingles 2001 Lupus Surgical History H/O breast surgery (09/18/21) Needle localization right breast biopsy x2 Dr. 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 Family History Daughter Breast cancer Her daughter was recently diagnosed with triple negative breast cancer and required segmental mastectomy radiation therapy and chemotherapy. Sister Hypertension Father Hypertension Grandfather (Paternal) Stroke Grandfather (Maternal) Hypertension Brother Hypertension Other Heart disease Denies family history of Ovarian cancer Colorectal cancer Social History Smoking Status: Never smoker Second Hand Exposure: No; Do You Dip or Chew Tobacco: No; Hx Alcohol Use: No Hx Substance Use: No Preferred Language: Czech Communication Ability: Effective Desktop Support Consultant Required: No Beliefs That Will Affect Care: None marital status: / Current Living Situation: Alone Current Living Situation Comment: Apartment How many Children do You have: 1 Other Information That Helps Us Care for You: No Feels Safe at Home: Yes Safety Concerns: Feels Safe At This Time Diet: regular during the past year weight has: remained stable Assistive Devices: Cane, Glasses and Walker Physical Exam Physical Exam: Gen.: No acute distress. Alert and oriented. HEENT: Anicteric sclera. Neck: No JVD. Bilateral carotid bruit versus radiation of cardiac murmur. Normal carotid upstrokes bilaterally. Cardiac: Regular. Normal S1-S2. 1/6 early peaking systolic ejection murmur. Pulmonary: Clear to auscultation bilaterally without wheezes, rales, or rhonchi. Abdomen: Soft, nontender, nondistended, with normoactive bowel sounds. No bruits noted. Extremities: 2+ radial pulses bilaterally. 2+ posterior tibialis pulses bilaterally. No significant pitting edema or cyanosis. Psychiatric: Affect appears appropriate. Results & Data Vital Signs (Past 12 Hours) Vital Signs Temp Pulse Pulse Resp BP Pulse Ox O2 Del Method 12/07/23 07:35 36.6 C 81 18 130/62 96 Room Air 12/07/23 07:31 36 L 12/07/23 02:35 36.6 C 62 16 139/55 L 98 Room Air 12/06/23 22:40 36.6 C 88 14 146/56 H 98 Room Air 12/06/23 22:30 49 L Laboratory Results Laboratory Results - last 24 hr 12/06/23 12/06/23 12/07/23 12:27 13:45 04:30 WBC 12.20 H 5.65 RBC 4.62 4.35 Hgb 10.2 L 9.4 L Hct 34.3 L 32.1 L MCV 74.2 L 73.8 L MCH 22.1 L 21.6 L MCHC 29.7 L 29.3 L RDW Std Deviation 53.8 H 53.0 H RDW Coeff of Felicia 20.4 H 20.3 H Plt Count 266 227 MPV 10.9 10.5 Immature Gran % (Auto) 0.6 0.4 Neut % (Auto) 87.9 62.6 Lymph % (Auto) 5.1 18.6 [place] % (Auto) 5.7 14.2 Eos % (Auto) 0.5 3.7 Baso % (Auto) 0.2 0.5 Neut # (Auto) 10.72 H 3.54 Lymph # (Auto) 0.62 L 1.05 L [place] # (Auto) 0.70 H 0.80 H Eos # (Auto) 0.06 0.21 Baso # (Auto) 0.03 0.03 Immature Gran # (Auto) 0.07 0.02 Polychromasia 1+ 1+ Hypochromasia Present Present Anisocytosis Present Present Microcytosis Present Ovalocytes 1+ 1+ PT 11.4 INR 1.1 Sodium 138 141 Potassium 4.1 4.0 Chloride 107 113 H Carbon Dioxide 23 23 Anion Gap 8 5 BUN 28 H 25 H Creatinine 0.78 0.79 Est Cr Clr Drug Dosing 39.1 38.6 Est GFR ( Amer) 79.8 78.6 Est GFR (Non-Af Amer) 68.8 67.8 BUN/Creatinine Ratio 35.9 H 31.6 H Glucose 157 H 99 Calcium 8.9 8.4 L Phosphorus 3.2 Magnesium 2.2 2.2 Iron 14 L TIBC 373 Unsaturated IBC 359 H Transferrin % Sat 4 L Ferritin 6.2 L Total Bilirubin 0.4 0.4 AST 19 15 ALT 13 10 Alkaline Phosphatase 93 74 Troponin I High Sens 11.6 Total Protein 6.7 5.7 L Albumin 4.0 3.4 Globulin 2.7 2.3 L Albumin/Globulin Ratio 1.5 1.5 Vitamin B12 698 Folate > 22.30 TSH 2.321 Urine Color Yellow Urine Appearance Clear Urine pH 6.0 Ur Specific [place] 1.018 Urine Protein Negative Urine Glucose (UA) Negative Urine Ketones Negative Urine Blood Negative Urine Nitrite Negative Urine Bilirubin Negative Urine Urobilinogen Negative Ur Leukocyte Esterase Trace H Urine WBC (Auto) 0-5 Urine RBC (Auto) 0-2 U Hyaline Cast (Auto) 0-2 U Epithel Cells (Auto) 0-2 Urine Bacteria (Auto) None Seen Lyme Disease Screen Negative Diagnostic Findings Telemetry personally reviewed: Sinus rhythm with Mobitz 1. Heart rate 30s at times. No significant pause. Episodes of 2-1 AV block. ECGs personally reviewed: ECG 12/06/2023 1245: Sinus bradycardia with Mobitz 1 at 53 bpm. LVH. Poor R wave progression. ECG 12/06/2023 at 1426: Sinus bradycardia with Mobitz 1. 50 bpm. LVH. Poor R wave progression. Incomplete RBBB. History and physical report reviewed. Labs reviewed and notable for anemia, normal potassium, stable renal function, normal magnesium, low ferritin, normal TSH, negative Lyme. CT head 12/06/2023: Scalp contusion without acute intracranial abnormality or fracture. Cervical spine CT 12/06/2023: No acute cervical spine fracture. Chest x-ray 12/06/2023: Pulmonary vascular congestion with interstitial coarsening per radiology. 1.4 cm right apical nodule versus scarring per radiology. Hiatal hernia. Preliminary echo review from 12/07/2023: Normal LV systolic function. No significant valvular stenosis. Sclerotic aortic valve. No severe valvular regurgitation. Formal review to follow. Medications Administered Current Inpatient Medications Acetaminophen (Acetaminophen 325 Mg Tab) 650 mg PO Q6H PRN PRN Reason: pain(1-4),headache,fever Stop: 01/05/24 15:53 Aspirin (Aspirin 81 Mg Ectab) 81 mg PO QAM DAR Stop: 01/06/24 08:59 Last Admin: 12/07/23 08:15 Dose: 81 mg Lisinopril (Lisinopril 5 Mg Tab) 5 mg PO DAILY [facility] Stop: 01/06/24 08:59 Last Admin: 12/07/23 08:16 Dose: 5 mg Zinc Acetate/Diphenhydramine (Diphenhydramine 2%/Zinc 0.1% Cream 28.4gm Tube) 1 appln EXT Q24H PRN PRN Reason: Itching Stop: 01/06/24 03:34 Last Admin: 12/07/23 04:38 Dose: 1 appln PG Care Time/CCT Total # of Minutes Spent Total Time Spent with Patient: Total time spent is greater than 50% in coordination of care (as documented) at patient's floor/unit and/or counseling patient: Coding Level of Care Code 31942 INT INP/OBS CARE 3/75MIN Diagnoses Second degree AV block I44.1 Syncope R55 Syncope type: unspecified (2) Syncope Syncope type: unspecified Qualified Code(s): R55 - Syncope and collapse
--- NOTE | 2023-12-07 12:50 | Hospitalist Progress Note ---
Date of Service December 07, 2023 Assessment & Plan (1) Syncope: Plan: Patient presented to the ED on 12/05 following a syncopal episode EKG/tele revealed type 1 second degree AV block Iron panel reviewed 12/06 - iron low at 14, transferrin 4% - started on PO iron every other day CBC/BMP reviewed 12/06: stable, hgb 9.4 Cardiology consult reviewed recommendations 12/06 Syncope likely due to AV block Pacemaker recommended -NPO after midnight incase placement is available 12/07 TTE pending AM CBC, CMP, mag (2) Second degree AV block: Plan: See syncope plan (3) Chest x-ray abnormality: Plan: Chest x-ray and CT vesicle spine note right apical abnormality representing possible nodule versus scar tissue Please show patient has outpatient follow-up CT of the chest scheduled within 3 months of discharge (4) Anemia: Plan: Patient has a drop in MCV from 99 and May of this year to 74 today with MCHC of 29 Hemoglobin reviewed 12/06: 9.4 - Iron panel low, B12 WNL Started PO iron every other day 12/06 consider IV iron prior to discharge if patient becomes symptomatic from anemia She has a known history of iron deficiency anemia from previous GI bleeds BUN is mildly elevated but denies melena or hematochezia Monitor daily CBC Plan Chronic conditions: HTN: stable, continue home Lisinopril Diet: heart healthy, NPO after midnight Code status: DNR/DNI Disposition: continued inpatient stay for pacemaker placement Updated family at bedside 12/06 Admission and Anticipated Discharge Date Admission Date: December 06, 2023 Subjective Patient seen and examined. Family at bedside. Patient reports to be feeling well. She denies any complaints today. Physical Exam 2 Constitutional: WD/WN, vitals as above Eyes: PERRL, conjunctivae normal, anicteric sclerae Respiratory: normal respiratory effort, lungs clear to auscultation Cardiovascular: RRR, no murmur, no edema Skin: no rashes, warm and dry Psychiatric: A+Ox3, euthymic affect Results & Data Results & Data Vital Signs (Past 12 Hours) Vital Signs Temp Pulse Pulse Resp BP Pulse Ox O2 Del Method 12/07/23 11:25 36.7 C 69 17 139/67 100 Room Air 12/07/23 07:35 36.6 C 81 18 130/62 96 Room Air 12/07/23 07:31 36 L 12/07/23 02:35 36.6 C 62 16 139/55 L 98 Room Air Laboratory Results 12/07/23 04:30 12/07/23 04:30 PG Care Time/CCT Total # of Minutes Spent Total Time Spent with Patient: Total time spent is greater than 50% in coordination of care (as documented) at patient's floor/unit and/or counseling patient: Coding Level of Care Code 77044 SUB INP/OBS CARE 2/35MIN Diagnoses Syncope R55 Syncope type: unspecified Second degree AV block I44.1 Chest x-ray abnormality R93.89 Anemia D64.9 (1) Syncope Syncope type: unspecified Qualified Code(s): R55 - Syncope and collapse
[2023-12-07] MEDS: FERROUS SULFATE 325 MG TAB PO SCH (13:28)
--- NOTE | 2023-12-07 19:02 | Electrocardiogram Report ---
Test Reason : Blood Pressure : */* mmHG Vent. Rate : 53 BPM Atrial Rate : 75 BPM P-R Int : * ms QRS Dur : 102 ms QT Int : 454 ms P-R-T Axes : * -41 13 degrees QTcB Int : 426 ms Sinus rhythm with 2nd degree A-V block (Mobitz I) Left axis deviation Left ventricular hypertrophy ( R in aVL , [place] product , Romhilt-Berman ) Poor R wave progression, consider anterior VT vs. lead placement vs. LVH Abnormal ECG When compared with ECG of 06-May-2023 20:13, Sinus rhythm is now with 2nd degree A-V block (Mobitz I) Questionable change in QRS duration Borderline criteria for Anterior infarct are now Present Borderline criteria for Inferior infarct are no longer Present Confirmed by Marques Beltran ([id number]) on 12/07/2023 7:02:13 PM Referred By: REFERRED SELF Confirmed By: Marques Beltran
--- NOTE | 2023-12-07 19:02 | Electrocardiogram Report ---
Test Reason : Blood Pressure : */* mmHG Vent. Rate : 50 BPM Atrial Rate : 72 BPM P-R Int : * ms QRS Dur : 130 ms QT Int : 452 ms P-R-T Axes : 53 -39 7 degrees QTcB Int : 412 ms Sinus rhythm with 2nd degree A-V block (Mobitz I) Left axis deviation Left ventricular hypertrophy with QRS widening ( R in aVL , [place] product , Romhilt-Berman ) Right bundle branch block Poor R wave progression, consider anterior TN vs. lead placement vs. LVH Abnormal ECG When compared with ECG of 06-Dec-2023 12:45, Right bundle branch block is now Present Confirmed by Marques Beltran ([id number]) on 12/07/2023 7:02:44 PM Referred By: REFERRED SELF Confirmed By: Marques Beltran
--- NOTE | 2023-12-07 22:56 | XCELERA ---
[id number]
[2023-12-08 06:19] LABS: Basophils # (auto) 0.03 K/uL (0.00-0.20); Basophils % (auto) 0.5 %; Eosinophils # (auto) 0.28 K/uL (0.00-0.50); Eosinophils % (auto) 4.9 %; Hematocrit (blood only) 33.6 % (37.0-47.0); Immature Granulocytes # (auto) 0.02 K/uL (0.01-0.20); Immature Granulocytes % (auto) 0.3 %; Lymphocytes # (auto) 1.15 K/uL (1.20-3.40); Lymphocytes % (auto) 20.1 %; Mean Corpuscular Hemoglobin 22.1 pg (25.0-34.0); Mean Corpuscular Hgb Conc 29.8 g/dL (32.0-36.0); Mean Corpuscular Volume 74.2 fL (80.0-100.0); Mean Platelet Volume 10.9 fL (9.4-12.4); Monocytes # (auto) 0.63 K/uL (0.11-0.59); Neutrophils # (auto) 3.61 K/uL (1.40-6.50); Neutrophils % (auto) 63.2 %; Platelet Count 235 K/uL (130-400); RDW Coefficient of Variation 20.6 % (11.5-14.5); RDW Standard Deviation 53.5 fL (36.4-46.3); Red Blood Count 4.53 M/uL (4.20-5.40); White Blood Count 5.72 K/ul (4.8-10.8)
[2023-12-08 06:38] LABS: Albumin Globulin Ratio 1.4 (0.9-2); Albumin Level 3.4 gm/dl (3.4-5.0); BUN Creatinine Ratio 38.4 (10-20); Bilirubin,Total 0.4 mg/dl (0.2-1.0); Calcium 8.2 mg/dl (8.6-10.3); Creatinine Clr Calc Pharmacy 41.7 ml/min; Est GFR (African American) 86.4 ml/min; Est GFR (Non-African American) 74.6 ml/min; Globulin 2.4 gm/dl (2.5-4.0); Magnesium 2.1 mg/dl (1.7-2.4); Total Protein 5.8 gm/dl (6.0-8.3)
[2023-12-08 06:44] LABS: INR 1.1 (0.9-1.1); Prothrombin Time 11.4 Seconds (9.0-12.0)
[2023-12-08 06:54] LABS: Anisocytosis Present; Ovalocytes 1+; Polychromasia 1+
--- NOTE | 2023-12-08 12:43 | Electrocardiogram Report ---
Test Reason : Blood Pressure : */* mmHG Vent. Rate : 69 BPM Atrial Rate : 75 BPM P-R Int : 354 ms QRS Dur : 124 ms QT Int : 432 ms P-R-T Axes : 69 -41 12 degrees QTcB Int : 462 ms Probable Sinus rhythm with 2nd degree A-V block (Mobitz II) Left axis deviation Right bundle branch block Voltage criteria for left ventricular hypertrophy Abnormal ECG When compared with ECG of 06-Dec-2023 14:26, Sinus rhythm is no longer with 2nd degree A-V block (Mobitz I) Sinus rhythm is now with 2nd degree A-V block (Mobitz II) Right bundle branch block is now Present Confirmed by Giuseppe Navarro ([id number]) on 12/08/2023 12:42:56 PM Referred By: REFERRED SELF Confirmed By: Giuseppe Navarro
--- NOTE | 2023-12-08 15:27 | Pre Anesthesia Assessment ---
Date of Service December 08, 2023 Pre Sedation Assessment Vital Signs Temp Pulse Pulse Resp BP Pulse Ox O2 Del Method 12/08/23 15:25 80 12/08/23 15:21 36.6 C 74 18 139/75 96 Room Air 12/08/23 11:03 36.6 C 66 17 138/80 99 Room Air 12/08/23 08:22 63 12/08/23 07:31 36.4 C L 54 L 17 133/82 99 Room Air 12/08/23 02:35 36.4 C L 56 L 16 159/66 H 96 Room Air 12/08/23 01:39 34 L 12/07/23 23:05 36.6 C 73 19 156/69 H 96 Room Air 12/07/23 19:15 36.6 C 70 18 151/71 H 94 Room Air 12/07/23 17:27 70 Cardiovascular + bradycardic Respiratory + respiratory effort normal Pre-Sedation Airway Assessment Smoking Status: Never smoker Hx Sleep Apnea: No Hx Difficult Intubation: No Short, Thick Neck: No Thyromental Distance: > or= 3.5 Finger Breadths Oral Cavity: + WNL Mallampati Class: III ASA: ASA3 Procedure Planning Contraindications for Sedation: none Current Medications Reviewed: Yes Notes The planned sedation has been discussed with the patient. Informed Consent was obtained. I have identified the patient, determined the appropriateness of sedation and have assessed the patient immediately prior to the procedure. All medicine(s) and interventions are by my order.
--- NOTE | 2023-12-08 15:54 | Hospitalist Progress Note ---
Date of Service December 08, 2023 Assessment & Plan (1) Syncope: Plan: Patient presented to the ED on 12/05 following a syncopal episode EKG/tele revealed type 1 second degree AV block Iron panel - iron low at 14, transferrin 4% - started on PO iron every other day - hgb stable Cardiology consult reviewed recommendations 12/06 Syncope likely due to AV block Pacemaker plan for insertion today Echo: EF > 70s, sclerotic aortic valve without significant stenosis AM bmp (2) Second degree AV block: Plan: See syncope plan Lyme screen negative (3) Chest x-ray abnormality: Plan: Chest x-ray and CT vesicle spine note right apical abnormality representing possible nodule versus scar tissue Recommend repeat chest CT in 3 months - will defer to PCP for ordering so can be followed up on (4) Anemia: Plan: Patient has a drop in MCV from 99 and May of this year to 74 today with MCHC of 29. Hgb is stable. - Iron panel low, B12 WNL Started PO iron every other day 12/06 consider IV iron prior to discharge if patient becomes symptomatic from anemia She has a known history of iron deficiency anemia from previous GI bleeds BUN is mildly elevated but denies melena or hematochezia Plan Chronic conditions: HTN: stable, continue home Lisinopril Disposition: continued inpatient stay for pacemaker placement Updated family at bedside 12/06 and 12/07 Admission and Anticipated Discharge Date Admission Date: December 06, 2023 Subjective patient seen lying in bed, daughter present at bedside. Awaiting for pacemaker placement today. Denies any lightheadedness or dizziness at rest or with exertion, with minimal walking to the commode. States that she has been getting around okay, lives in a senior apartment. Review of Systems Review of Systems: All systems reviewed & are unremarkable except as noted in Subjective Physical Exam Physical Exam: General: NAD, VS as above Resp: normal respiratory effort, lungs clear to auscultation CV: RRR, no murmur, Abd: normal bowel sounds, non tender, no hepatosplenomegaly Extremities: Moves all extremities, no edema, CHANNING hose in place Neuro: A&O x3, Skin: intact, no lesions noted Results & Data Results & Data Vital Signs (Past 12 Hours) Vital Signs Temp Pulse Pulse Resp BP Pulse Ox O2 Del Method 12/08/23 15:25 80 12/08/23 15:21 36.6 C 74 18 139/75 96 Room Air 12/08/23 11:03 36.6 C 66 17 138/80 99 Room Air 12/08/23 08:22 63 12/08/23 07:31 36.4 C L 54 L 17 133/82 99 Room Air Laboratory Results CBC and chemistry reviewed PG Care Time/CCT Total # of Minutes Spent Total Time Spent with Patient: Total time spent is greater than 50% in coordination of care (as documented) at patient's floor/unit and/or counseling patient: Coding Level of Care Code 55431 SUB INP/OBS CARE 3/50MIN Diagnoses Syncope R55 Syncope type: unspecified Second degree AV block I44.1 Chest x-ray abnormality R93.89 Anemia D64.9 (1) Syncope Syncope type: unspecified Qualified Code(s): R55 - Syncope and collapse
[2023-12-08] MEDS: LIDOCAINE 1% LOCAL 20 ML VIAL ONE (16:23)
[2023-12-08] MEDS: BUPIVACAINE 0.25% PF 30 ML VIAL ONE (16:23)
[2023-12-08] MEDS: WATER, STERILE FOR INJ 10 ML VIAL ONE (16:24)
[2023-12-08] MEDS: ceFAZolin 330 MG/ML 1 GM VIAL ONE (16:24)
[2023-12-08] MEDS: VANCOMYCIN HCL 1000MG/20ML VIAL ONE (16:24)
[2023-12-08] MEDS: fentaNYL citrate PF 100 MCG/2 ML VIAL ONE (17:34)
[2023-12-08] MEDS: MIDAZOLAM HCL 5 MG/ML 1 ML VIAL ONE (17:34)
[2023-12-08] MEDS: diphenhydrAMINE 50 MG/ML VIAL ONE (17:35)
--- NOTE | 2023-12-08 17:46 | Pulmonary Consultation ---
Date of Consultation December 08, 2023 Assessment & Plan (1) Iatrogenic pneumothorax: (2) Second degree AV block: Plan -- Iatrogenic pneumothorax Small left apical and lateral -- Secondary AV block with syncopal episode S/p PPM 12/08/2023 Plan: Chest x-ray on the expiratory films, separation is up to 1.6 cm apically. Patient is hemodynamically stable, I would recommend to continue with nonrebreather. Antitussive medication [id number]. Given the new onset of pneumothorax and we do not know the course where the pneumothorax will be headed I think it is reasonable to transfer the patient to the ICU to monitor overnight If there is any hemodynamically instability or significant worsening in the size of the pneumothorax then chest tube will be pursued. Case was discussed with Dr. Racheal Pollard, patient's daughter was called and updated Please note the above document was generated using voice recognition software. It may contain grammatical, syntax or spelling errors.Any formal questions or concerns about the content, text or information contained within the body of this dictation should be directly addressed to the provider for clarification. History of Present Illness Attending Physician: Remberto Riley MD History of Present Illness 88-year-old female was admitted to hospital because of syncopal episode Past medical history: Breast cancer, hypertension, history of lupus Patient had a pacemaker placement today which resulted in left-sided pneumothorax. Pulmonary consulted for left-sided pneumothorax At the time of examination patient systolic blood pressure was in the 150s, she was on nonrebreather. Heart rate in the 60s. Not in any distress But she did complain left-sided chest pain which got worse on taking a deep breath. Pacemaker was in place, no hematoma around the site. Denied any headache. No nausea or vomiting Social history: Lifetime non-smoker Allergies Allergy/AdvReac Type Severity Reaction Status Date / Time adhesive Allergy Unknown Verified 12/06/23 15:28 silicone AdvReac brock Verified 12/06/23 15:28 Home Medications Medication Instructions Recorded Confirmed Type aspirin 81 mg tablet,delayed 81 mg PO QAM 06/05/20 12/06/23 History release (Ecotrin Low Strength) glucosamine sulfate 500 mg tablet 500 mg PO BID 06/05/20 12/06/23 History (Glucosamine) multivitamin with minerals 1 tab PO DAILY 06/05/20 12/06/23 History (Multiple Vitamin-Minerals tablet) naproxen 250 mg tablet 250 mg PO BID PRN arthritis 05/06/23 12/06/23 History vitamin E 268 mg (400 unit) capsule 268 mg PO DAILY 05/06/23 12/06/23 History lisinopril 5 mg tablet 5 mg PO DAILY 12/06/23 12/06/23 History Patient History Medical History Essential hypertension History of blood clots Arthritis Lobular carcinoma in situ (LCIS) of right breast Hx of renal calculi lt. History of cataract DVT (deep venous thrombosis) 1977, 1988, resolved Shingles 2001 Lupus Surgical History H/O breast surgery (09/18/21) Needle localization right breast biopsy x2 Dr. 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 Family History Daughter Breast cancer Her daughter was recently diagnosed with triple negative breast cancer and required segmental mastectomy radiation therapy and chemotherapy. Sister Hypertension Father Hypertension Grandfather (Paternal) Stroke Grandfather (Maternal) Hypertension Brother Hypertension Other Heart disease Denies family history of Ovarian cancer Colorectal cancer Social History Smoking Status: Never smoker Second Hand Exposure: No; Do You Dip or Chew Tobacco: No; Hx Alcohol Use: No Hx Substance Use: No Preferred Language: Salvadorean Communication Ability: Effective Production Pattern Maker Required: No Beliefs That Will Affect Care: None marital status: / Current Living Situation: Alone Current Living Situation Comment: Apartment How many Children do You have: 1 Other Information That Helps Us Care for You: No Feels Safe at Home: Yes Safety Concerns: Feels Safe At This Time Diet: regular during the past year weight has: remained stable Assistive Devices: Cane, Glasses and Walker Review of Systems 2 Review of Systems: All systems reviewed & are unremarkable except as noted in HPI & below Physical Exam 2 Physical Exam: Constitutional: No acute distress, frail-appearing HEENT: EOMI, PERRLA, arcus senilis bilaterally Respiratory system: Decreased air entry bilaterally, no wheeze, no rhonchi, mild crackles bilaterally CVS: S1-S2 positive, no murmurs or gallops, left-sided PPM Abdomen: Soft, nontender, nondistended, positive bowel sounds x4 Extremities: +2 pulses bilaterally radialis/ dorsalis pedis, no cyanosis, minimal pitting edema bilateral lower extremity Neuro: Awake alert oriented x3 Psych: Normal mood and affect G/U: No Saleh Musculoskeletal: Left mastectomy scar appreciated on the anterior chest Skin: no rashes, warm and dry Lymphatic: no cervical or axillary lymphadenopathy Results & Data Results & Data Vital Signs (Past 12 Hours) Vital Signs Temp Pulse Pulse Resp BP Pulse Ox O2 Del Method 12/08/23 15:25 80 12/08/23 15:21 36.6 C 74 18 139/75 96 Room Air 12/08/23 11:03 36.6 C 66 17 138/80 99 Room Air 12/08/23 08:22 63 12/08/23 07:31 36.4 C L 54 L 17 133/82 99 Room Air Laboratory Results 12/08/23 05:25 12/08/23 05:25 PG Care Time/CCT Total # of Minutes Spent Total Time Spent with Patient: Total time spent is greater than 50% in coordination of care (as documented) at patient's floor/unit and/or counseling patient: Coding Level of Care Code 47185 INT INP/OBS CARE 3/75MIN Diagnoses Iatrogenic pneumothorax J95.811 Second degree AV block I44.1
--- NOTE | 2023-12-08 17:49 | Electrophysiology Report ---
Date of Service December 08, 2023 Electrophysiology Procedure Electrophysiology Procedure Report Procedure performed: Implantation of dual-chamber permanent pacemaker with left bundle pacing lead Staff chef german: Jordin Springer MD Indication: The patient is an 88-year-old woman who presented with an episode of syncope. She was discovered to have second-degree AV block and associated bradycardia. She was felt to be a good candidate for permanent pacemaker due to symptomatic nonreversible AV node dysfunction. A dual-chamber device was selected as she is currently in sinus rhythm and wished to maintain AV synchrony. Procedure in detail: The patient was informed of the risks benefits and alternatives to the intended procedure and she wished to proceed. She was taken to the electrophysiology suite in a fasting state. A preoperative antibiotic had been administered. The patient was monitored electrocardiographically throughout today's procedure and conscious sedation was administered per protocol. The left upper pectoral area is prepped and draped in usual sterile fashion. This area was anesthetized using subcutaneous administration of a xylocaine solution. An incision was made at this site and carried down to the prepectoralis fascia using sharp dissection. Electrocautery was also employed for dissection as well as for hemostasis. A device pocket was fashioned tissues above the pectoralis muscle. Subsequent to this maneuver the left axillary vein was accessed using modified Seldinger technique. Sheath was placed over guidewire and used to facilitate passage of a guiding catheter for mapping of the interventricular septum. Once an appropriat e location was identified a pacing lead was advanced into the interventricular septum until the appropriate electrophysiologic characteristics were obtained. At this point the guiding catheter was removed. The proximal portion lead was then sutured the prepectoralis fascia using nonabsorbable suture. Sheath was placed over the remaining guidewire and used to facilitate passage of a pacing lead to the right atrium under fluoroscopic guidance. Adequate sensing and threshold parameters were obtained prior to active fixation of this lead to the endocardial surface. The proximal portion leads were then sutured the prepectoral fascia using nonabsorbable suture. The device pocket was irrigated with antibiotic solution. The leads were then attached to the device. The device and leads were then placed in the pocket and pocket was closed in 3 layers of absorbable suture. Steri-Strips and sterile dressing were applied. The device was tested noninvasively prior to conclusion the procedure. The patient was noted to become somewhat hypoxic during the procedure required an increased amount of supplemental oxygen. There was some concern about a pneumothorax due to difficulties with access. Chest x-ray subsequent to the procedure did confirm a small left apical pneumothorax. Equipment used: New pulse generator: Neuropsychiatric Aide [employer]. Model number: [id number] serial number [id number] Right atrial lead: Neuropsychiatric Aide [employer]. Model number: 5076 serial number [id number] Right ventricular lead: Neuropsychiatric Aide [employer]. Model number: 3830 serial number [id number] Measured data: Right atrial lead: P waves measured 3.9 mV. Pacing threshold was 1.5 V at 0.4 ms with a pacing impedance of 684 ohms Right ventricular lead: R waves measured 11.4 mV. Pacing threshold was 0.5 V at 0.4 ms with a pacing impedance of 836 ohms Impression: Successful implantation of dual-chamber permanent pacemaker with left bundle pacing lead Patient confirmed to have small pneumothorax on postoperative chest x-ray [facility] Electrophysiology codes Pacing Procedure 1: Pacin Insert/Replace Pacer A & V PG Moderate Sedation Codes Moderate Sedation Codes Procedure 1: Sedation/Anesthesia: 68129 Mod Sedation by the same physician;Init15 Min Child Age 5 & Up Procedure 2: Sedation/Anesthesia: 48279 Mod Sedation by the same physician; Ea [id number] Minutes
--- NOTE | 2023-12-08 17:49 | Post Anesthesia Assessment ---
Date of Service December 08, 2023 Post Sedation Assessment Vital Signs Temp Pulse Pulse Resp BP Pulse Ox O2 Del Method 12/08/23 15:25 80 12/08/23 15:21 36.6 C 74 18 139/75 96 Room Air 12/08/23 11:03 36.6 C 66 17 138/80 99 Room Air 12/08/23 08:22 63 12/08/23 07:31 36.4 C L 54 L 17 133/82 99 Room Air 12/08/23 02:35 36.4 C L 56 L 16 159/66 H 96 Room Air 12/08/23 01:39 34 L 12/07/23 23:05 36.6 C 73 19 156/69 H 96 Room Air 12/07/23 19:15 36.6 C 70 18 151/71 H 94 Room Air Recovery Score Activity: Moves 4 extremities Respiration: Deep Breath/Cough Circulation: +/-20% PreAnes Value Consciousness: Fully Awake Oxygen Saturation: O2 needed for >90% Discharge Sedation Level of Care: Fast Track Phase II Post Sedation Plan On clinical assessment, the patient appears to have tolerated the sedation without complications. Patient is recovering as anticipated. Patient will continue to be monitored by nursing and may be discharged when sedation discharge criteria are met per below protocol. Upon Completions of procedure up to 15 minutes continue every 5 minute vital signs and the P.A.R. score; then discharge to a Phase I or Fast Track to Phase II per the following guidelines: * Discharge Patient to appropriate Phase II area if PAR is 8 or greater or return to pre- procedure baseline. The post - procedure orders will be as directed. * If PAR score is less than 8 or not return to pre-procedure baseline then patient will follow Phase I monitoring till PAR is reached for Phase II. The Phase I may be done in procedure room or may call to secure a Phase I area. * If naloxone or flumazenil are used for reversal, hold in Phase I for continued monitoring from when last reversal dose was given for a minimum of 60 minutes or longer pending the nurse and/or physician discretion of patient condition before discharge to Phase II. Please call the Sedation Physician to re-evaluate and complete post-note for discharge to Phase II area. Do NOT discharge from procedure sedation or Phase 1 until post- sedation evaluation note is complete by procedure /sedation MD Sedation Discharge Instructions to be given to the patient at discharge to home.
--- NOTE | 2023-12-08 18:27 | XRay Report ---
XR chest insprtn/exprtn only CLINICAL HISTORY: poss. pneumo TECHNIQUE: Inspiration expiration films of the chest were obtained. Comparison: Comparison is made to chest radiograph 12/06/2023 FINDINGS: Interval placement of a pacemaker with the leads in satisfactory position. Calcified aortic knob is s een. Right apical density is similar to prior exam. There is a left-sided pneumothorax measuring up t o 17 mm. IMPRESSION: Small left pneumothorax status post pacemaker placement. ACT 112: Negative or not required by law. Electronically signed by: Jossue Gaviria M.D. 12/08/2023 6:26 PM
[2023-12-08] MEDS: GLUCOSAMINE SULFATE 500 MG CAP PO SCH (20:12)
[2023-12-08] MEDS: guaiFENesin/DEXTROM SYRUP 200MG/20MG 10ML UDC PO SCH (22:06)
[2023-12-09] MEDS: ceFAZolin 1000MG 1,000 MG/7.5 ML SYR IV ONE (01:15)
[2023-12-09 05:25] LABS: Basophils # (auto) 0.02 K/uL (0.00-0.20); Basophils % (auto) 0.3 %; Eosinophils # (auto) 0.23 K/uL (0.00-0.50); Eosinophils % (auto) 3.2 %; Hematocrit (blood only) 37.2 % (37.0-47.0); Hemoglobin 10.8 g/dl (12.0-16.0); Immature Granulocytes # (auto) 0.02 K/uL (0.01-0.20); Immature Granulocytes % (auto) 0.3 %; Lymphocytes # (auto) 0.81 K/uL (1.20-3.40); Lymphocytes % (auto) 11.3 %; Mean Corpuscular Hemoglobin 21.8 pg (25.0-34.0); Mean Corpuscular Volume 75.2 fL (80.0-100.0); Mean Platelet Volume 10.7 fL (9.4-12.4); Monocytes # (auto) 0.84 K/uL (0.11-0.59); Monocytes % (auto) 11.7 %; Neutrophils # (auto) 5.25 K/uL (1.40-6.50); Neutrophils % (auto) 73.2 %; Platelet Count 231 K/uL (130-400); RDW Coefficient of Variation 20.8 % (11.5-14.5); RDW Standard Deviation 53.6 fL (36.4-46.3); Red Blood Count 4.95 M/uL (4.20-5.40); White Blood Count 7.17 K/ul (4.8-10.8)
[2023-12-09 05:31] LABS: BUN Creatinine Ratio 37.8 (10-20); Calcium 8.5 mg/dl (8.6-10.3); Creatinine Clr Calc Pharmacy 41.2 ml/min; Est GFR (Non-African American) 73.4 ml/min; Magnesium 2.1 mg/dl (1.7-2.4); Phosphorus 4.5 mg/dl (2.5-4.9); Potassium 4.1 mmol/L (3.5-5.1)
[2023-12-09 05:47] LABS: Anisocytosis Present; Hypochromasia Present
--- NOTE | 2023-12-09 07:19 | Pulmonology Progress Note ---
Date of Service December 09, 2023 Assessment & Plan (1) Iatrogenic pneumothorax: (2) Second degree AV block: Plan -- Iatrogenic pneumothorax Small left apical and lateral -- Secondary AV block with syncopal episode S/p PPM 12/08/2023 Plan: Chest x-ray from today shows worsening of the left-sided pneumothorax, lateral differentiation from the chest wall is 2 cm I think it is reasonable to consider chest tube. Naveen Pollard, patient's daughter was called and updated regarding the patient's condition. She and the patient both are agreeable to it. Case discussed with cardio Please note the above document was generated using voice recognition software. It may contain grammatical, syntax or spelling errors.Any formal questions or concerns about the content, text or information contained within the body of this dictation should be directly addressed to the provider for clarification. Admission and Anticipated Discharge Date Admission Date: December 06, 2023 Subjective Patient seen and examined at bedside. No acute distress, no adverse events overnight She wore nonrebreather all night. At the time of examination she was sitting comfortably on the chair. Still complaining of pain when she took deep breath and on the left side with some discomfort. No nausea or vomiting. Denied any dizziness. Review of Systems 2 Review of Systems: All systems reviewed & are unremarkable except as noted in Subjective Physical Exam 2 Physical Exam: Constitutional: No acute distress, frail-appearing HEENT: EOMI, PERRLA, arcus senilis bilaterally Respiratory system: Decreased air entry bilaterally, no wheeze, no rhonchi, mild crackles bilaterally CVS: S1-S2 positive, positive 2 out of 6 systolic murmur appreciated best at aorta, left-sided PPM Abdomen: Soft, nontender, nondistended, positive bowel sounds x4 Extremities: +2 pulses bilaterally radialis/ dorsalis pedis, no cyanosis, minimal pitting edema bilateral lower extremity Neuro: Awake alert oriented x3 Psych: Normal mood and affect G/U: No Saleh Musculoskeletal: Left mastectomy scar appreciated on the anterior chest Skin: no rashes, warm and dry Lymphatic: no cervical or axillary lymphadenopathy Results & Data Results & Data Vital Signs (Past 12 Hours) Vital Signs Pulse Resp BP Pulse Ox O2 Del Method FiO2 12/09/23 06:15 70 17 100 12/09/23 06:06 63 16 100 12/09/23 06:00 147/72 H 12/09/23 05:57 65 20 100 12/09/23 05:48 62 17 100 12/09/23 05:42 65 17 100 12/09/23 05:30 130/77 12/09/23 05:24 61 18 100 12/09/23 05:21 64 17 100 12/09/23 05:12 65 15 100 12/09/23 04:48 67 15 100 12/09/23 04:36 62 15 100 12/09/23 04:30 141/69 H 12/09/23 04:30 141/69 H 12/09/23 04:18 68 17 100 12/09/23 04:03 66 16 100 12/09/23 04:00 145/75 H 12/09/23 04:00 145/75 H 12/09/23 03:54 62 16 100 12/09/23 03:36 75 15 100 12/09/23 03:15 63 15 100 12/09/23 03:00 152/90 H 12/09/23 03:00 152/90 H 12/09/23 03:00 69 14 100 12/09/23 02:45 64 16 100 12/09/23 02:30 144/75 H 12/09/23 02:30 144/75 H 12/09/23 02:30 144/75 H 12/09/23 02:30 144/75 H 12/09/23 02:30 68 25 H 100 12/09/23 02:21 65 16 100 12/09/23 02:00 63 23 100 12/09/23 02:00 142/68 H 12/09/23 02:00 142/68 H 12/09/23 02:00 142/68 H 12/09/23 01:45 67 17 100 12/09/23 01:42 129/74 12/09/23 01:42 129/74 12/09/23 01:42 129/74 12/09/23 01:24 99 H 21 100 12/09/23 01:00 139/73 12/09/23 01:00 139/73 12/09/23 01:00 77 16 96 12/09/23 00:57 66 17 96 12/09/23 00:33 64 17 92 12/09/23 00:24 61 18 94 12/09/23 00:03 68 19 93 12/09/23 00:00 134/73 12/09/23 00:00 62 12/08/23 23:57 66 21 92 12/08/23 23:45 62 16 94 12/08/23 23:45 110/62 12/08/23 23:45 110/62 12/08/23 23:33 60 16 95 12/08/23 23:30 129/71 12/08/23 23:30 129/71 12/08/23 23:27 60 17 95 12/08/23 23:18 67 14 98 12/08/23 20:51 79 22 99 12/08/23 20:45 173/98 H 12/08/23 20:15 134/92 12/08/23 20:15 69 18 99 12/08/23 20:00 Non-rebreather 100 12/08/23 19:45 62 20 100 12/08/23 19:45 155/78 H 12/08/23 19:45 155/78 H 12/08/23 19:36 63 23 100 12/08/23 19:30 64 12/08/23 19:21 64 16 100 Laboratory Results 12/09/23 04:53 12/09/23 04:53 PG Care Time/CCT Total # of Minutes Spent Total Time Spent with Patient: Total time spent is greater than 50% in coordination of care (as documented) at patient's floor/unit and/or counseling patient: Coding Level of Care Code 08685 SUB INP/OBS CARE 3/50MIN Diagnoses Iatrogenic pneumothorax J95.811 Second degree AV block I44.1
--- NOTE | 2023-12-09 08:16 | XRay Report ---
XR chest 1V portable CLINICAL HISTORY: f/u TECHNIQUE: Single frontal radiograph of the chest was obtained. Comparison: Comparison is made to chest radiograph 12/08/2023 FINDINGS: An implanted pacemaker is seen. The cardiomediastinal silhouette is stable. The lungs are clear apart from stable right apical scarring. Left lateral pneumothorax measures approximately 14 mm. IMPRESSION: Left lateral pneumothorax is stable to minimally decreased from prior exam. ACT 112: Negative or not required by law. Electronically signed by: Jossue Gaviria M.D. 12/09/2023 8:14 AM
--- NOTE | 2023-12-09 08:16 | XRay Report ---
XR chest 2V PA/lateral CLINICAL HISTORY: EXACT TIME ORDERED Evaluate for pneumothorax and l TECHNIQUE: 2 views of the chest were obtained. Comparison: Comparison is made to chest radiograph 12/18/2023 FINDINGS: An implanted pacemaker is seen. Calcified aortic knob is seen. A hiatal hernia is seen. The lungs are clear apart from right apical scar. Left lateral pneumothorax is slightly enlarged measuring 20 mm i n diameter. IMPRESSION: Left lateral pneumothorax is slightly more prominent than in the prior exam ACT 112: Negative or not required by law. Electronically signed by: Jossue Gaviria M.D. 12/09/2023 8:15 AM
--- NOTE | 2023-12-09 09:30 | Cardiology Progress Note ---
Date of Service December 09, 2023 Assessment & Plan (1) Second degree AV block: (2) Syncope: (3) Iatrogenic pneumothorax: Plan ASSESSMENT/PLAN: 1. Second-degree AV block: The patient underwent implantation of dual-chamber permanent pacemaker with left bundle pacing lead yesterday. Normal function. 2. Syncope: Likely due to AV block as above. Status post pacemaker. 3. Pneumothorax: Iatrogenic related to her implant procedure. Not symptomatic. Normal oxygenation and blood pressure. However, the pneumothorax appears to be slightly worse today. I discussed the case with Dr. Rose who plans on he chest tube for resolution. We will continue to follow her clinical course. Admission and Anticipated Discharge Date Admission Date: December 06, 2023 Subjective This morning patient claimed he feeling well. Only some mild stiffness with deep inspiration. No significant discomfort at the device implant site. No dyspnea or breathing trouble. Review of Systems Review of Systems: Per HPI Physical Exam Physical Exam: Alert. Oriented. Answered all questions appropriately Normal respiratory effort Device implant site without hematoma, significant ecchymosis or drainage. Results & Data Vital Signs (Past 12 Hours) Vital Signs Temp Pulse Resp BP Pulse Ox O2 Del Method 12/09/23 08:33 Room Air 12/09/23 08:28 36.7 C 12/09/23 08:06 77 19 96 12/09/23 08:00 133/94 12/09/23 08:00 133/94 12/09/23 07:57 89 22 97 12/09/23 07:37 102/72 12/09/23 07:37 102/72 12/09/23 07:03 73 22 100 12/09/23 07:00 154/80 H 12/09/23 07:00 154/80 H 12/09/23 06:15 70 17 100 12/09/23 06:06 63 16 100 12/09/23 06:00 147/72 H 12/09/23 05:57 65 20 100 12/09/23 05:48 62 17 12/09/23 05:42 65 17 12/09/23 05:30 130/77 12/09/23 05:24 61 18 12/09/23 05:21 64 17 12/09/23 05:12 65 15 12/09/23 04:48 67 15 12/09/23 04:36 62 15 12/09/23 04:30 141/69 H 12/09/23 04:30 141/69 H 12/09/23 04:18 68 17 100 12/09/23 04:03 66 16 100 12/09/23 04:00 145/75 H 12/09/23 04:00 145/75 H 12/09/23 03:54 62 16 100 12/09/23 03:36 75 15 100 12/09/23 03:15 63 15 100 12/09/23 03:00 152/90 H 12/09/23 03:00 152/90 H 12/09/23 03:00 69 14 100 12/09/23 02:45 64 16 100 12/09/23 02:30 144/75 H 12/09/23 02:30 144/75 H 12/09/23 02:30 144/75 H 12/09/23 02:30 144/75 H 12/09/23 02:30 68 25 H 100 12/09/23 02:21 65 16 100 12/09/23 02:00 63 23 100 12/09/23 02:00 142/68 H 12/09/23 02:00 142/68 H 12/09/23 02:00 142/68 H 12/09/23 01:45 67 17 100 12/09/23 01:42 129/74 12/09/23 01:42 129/74 12/09/23 01:42 129/74 12/09/23 01:24 99 H 21 100 12/09/23 01:00 139/73 12/09/23 01:00 139/73 12/09/23 01:00 77 16 96 12/09/23 00:57 66 17 96 12/09/23 00:33 64 17 92 12/09/23 00:24 61 18 94 12/09/23 00:03 68 19 93 12/09/23 00:00 134/73 12/09/23 00:00 62 12/08/23 23:57 66 21 92 12/08/23 23:45 62 16 94 12/08/23 23:45 110/62 12/08/23 23:45 110/62 12/08/23 23:33 60 16 95 12/08/23 23:30 129/71 12/08/23 23:30 129/71 12/08/23 23:27 60 17 95 12/08/23 23:18 67 14 98 Diagnostic Findings I performed a complete device interrogation of her dual-chamber permanent pacemaker. Normal sensing and threshold parameters on both atrial and ventricular leads. Chest x-ray this morning demonstrated worsening pneumothorax. Stable lead position. (2) Syncope Syncope type: unspecified Qualified Code(s): R55 - Syncope and collapse
--- NOTE | 2023-12-09 11:49 | Electrocardiogram Report ---
Test Reason : Blood Pressure : */* mmHG Vent. Rate : 66 BPM Atrial Rate : 66 BPM P-R Int : 138 ms QRS Dur : 126 ms QT Int : 436 ms P-R-T Axes : 62 -64 84 degrees QTcB Int : 457 ms Atrial-sensed ventricular-paced rhythm with ventricular escape complexes Abnormal ECG When compared with ECG of 06-Dec-2023 19:49, Electronic ventricular pacemaker has replaced Sinus rhythm Confirmed by Giuseppe Navarro ([id number]) on 12/09/2023 11:48:37 AM Referred By: REFERRED SELF Confirmed By: Giuseppe Navarro
[2023-12-09] MEDS: LIDOCAINE 1% LOCAL 20 ML VIAL ONE (12:41)
--- NOTE | 2023-12-09 13:23 | XRay Report ---
XR chest 1V portable CLINICAL HISTORY: New left chest tube TECHNIQUE: Single frontal radiograph of the chest was obtained. Comparison: Comparison is made to chest radiograph 12/09/2023 FINDINGS: A left chest tube has been placed. Dual lead pacemaker is seen. The cardiomediastinal silhouette is n ormal. The lungs are clear. Left apical pneumothorax has decreased in size from prior exam measuring 11 mm. IMPRESSION: Interval placement of left chest tube with decrease in size of left pneumothorax. ACT 112: Negative or not required by law. Electronically signed by: Jossue Gaviria M.D. 12/09/2023 1:21 PM
--- NOTE | 2023-12-09 13:29 | Hospitalist Progress Note ---
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 as a result Patient transferred to ICU, bottom sprayer consulted - stable on room air, however pneumothorax size increasing - plan for chest tube today PT/OT - consulted, plan to eval pt tomorrow after chest tube placement (2) Second degree AV block: Plan: See syncope plan Lyme screen negative (3) Chest x-ray abnormality: Plan: Chest x-ray and CT vesicle spine note right apical abnormality representing possible nodule versus scar tissue Recommend repeat chest CT in 3 months - will defer to PCP for ordering so can be followed up on (4) Anemia: Plan: Patient has a drop in MCV from 99 and May of this year to 74 today with MCHC of 29. Hgb is stable. Iron panel - iron low at 14, transferrin 4% - started on PO iron every other day - hgb stable B12 WNL She has a known history of iron deficiency anemia from previous GI bleeds -pt denies melena or hematochezia Plan Chronic conditions: HTN: stable, continue home Lisinopril Disposition: continued inpatient stay for chest tube placement and pneumothorax management. Stable for downgrade to PCU Updated family at bedside 12/06 and 12/07 Admission and Anticipated Discharge Date Admission Date: December 06, 2023 Subjective Patient seen lying in bed in the ICU this afternoon. No family present at bedside. Patient states she is feeling well, does not have a chest tube yet. Is on room air and is not having any difficulty breathing Has not had a bowel movement today but that is not abnormal for her as she had 1 yesterday. Tolerating her diet Denies lightheadedness or dizziness Review of Systems Review of Systems: All systems reviewed & are unremarkable except as noted in Subjective Physical Exam Physical Exam: General: NAD, VS as above Resp: normal respiratory effort, no wheezing. stable on room air CV: RRR, no murmur. Dressing over pacemaker site, c/d/i Abd: normal bowel sounds, non tender, no hepatosplenomegaly Extremities: Moves all extremities, no edema, Neuro: A&O x3, Skin: intact, no lesions noted Results & Data Results & Data Vital Signs (Past 12 Hours) Vital Signs Temp Pulse Resp BP Pulse Ox O2 Del Method 12/09/23 11:26 36.4 C L 12/09/23 11:15 73 18 96 12/09/23 10:30 137/64 12/09/23 10:30 65 19 95 12/09/23 10:00 146/68 H 12/09/23 10:00 68 18 97 12/09/23 09:00 68 17 93 12/09/23 09:00 139/65 12/09/23 08:33 Room Air 12/09/23 08:28 36.7 C 12/09/23 08:06 77 19 96 12/09/23 08:00 133/94 12/09/23 08:00 133/94 12/09/23 07:57 89 22 97 12/09/23 07:37 102/72 12/09/23 07:37 102/72 12/09/23 07:03 73 22 100 12/09/23 07:00 154/80 H 12/09/23 07:00 154/80 H 12/09/23 06:15 70 17 100 12/09/23 06:06 63 16 100 12/09/23 06:00 147/72 H 12/09/23 05:57 65 20 100 12/09/23 05:48 62 17 12/09/23 05:42 65 17 100 12/09/23 05:30 130/77 12/09/23 05:24 61 18 100 12/09/23 05:21 64 17 100 12/09/23 05:12 65 15 100 12/09/23 04:48 67 15 100 12/09/23 04:36 62 15 100 12/09/23 04:30 141/69 H 12/09/23 04:30 141/69 H 12/09/23 04:18 68 17 100 12/09/23 04:03 66 16 100 12/09/23 04:00 145/75 H 12/09/23 04:00 145/75 H 12/09/23 03:54 62 16 100 12/09/23 03:36 75 15 100 12/09/23 03:15 63 15 100 12/09/23 03:00 152/90 H 09/10/24 03:00 152/90 H 12/09/23 03:00 69 14 100 12/09/23 02:45 64 16 100 12/09/23 02:30 144/75 H 12/09/23 02:30 144/75 H 12/09/23 02:30 144/75 H 12/09/23 02:30 144/75 H 12/09/23 02:30 68 25 H 100 12/09/23 02:21 65 16 100 12/09/23 02:00 63 23 100 12/09/23 02:00 142/68 H 12/09/23 02:00 142/68 H 12/09/23 02:00 142/68 H 12/09/23 01:45 67 17 100 12/09/23 01:42 129/74 12/09/23 01:42 129/74 12/09/23 01:42 129/74 Laboratory Results CBC and chemistry reviewed Diagnostic Findings chest x-ray reviewed PG Care Time/CCT Total # of Minutes Spent Total Time Spent with Patient: Total time spent is greater than 50% in coordination of care (as documented) at patient's floor/unit and/or counseling patient: Coding Level of Care Code 12049 SUB INP/OBS CARE 3/50MIN Diagnoses Syncope R55 Syncope type: unspecified Second degree AV block I44.1 Chest x-ray abnormality R93.89 Anemia D64.9 (1) Syncope Syncope type: unspecified Qualified Code(s): R55 - Syncope and collapse
--- NOTE | 2023-12-09 14:21 | Procedure Note ---
Procedure Note Date of Service December 09, 2023 Procedure: Pigtail chest tube insertion Counter Roller: Dr. Raj Rose Indication: Left-sided pneumothorax Consent: Signed by patient and verified with timeout prior to procedure Anesthesia: 1% lidocaine without epinephrine local Procedure: Consent was verified and timeout performed. Appropriate imaging studies were reviewed prior to the procedure. Patient was placed in a seated position. Appropriate site above the diaphragm on the left anterior axillary line third intercostal space for chest tube insertion was selected. The skin was prepped and draped in normal sterile fashion. Lidocaine was used for local analgesia. Air was aspirated via the finder needle. A small skin carlos a was made with the scalpel and the catheter over the needle apparatus was advanced over the rib into the pleural space. With the help of guidewire and Seldinger technique, 14 [place] pigtail catheter was inserted and connected to Pleur-evac. No air leak appreciated after that. Chest x-ray to follow The patient tolerated the procedure without obvious complication Complications: None Blood loss: Less than [address] [facility] [place] Procedure Codes (Charges) Pulmonary/Thoracic Procedure 1: Pulmonary and Thoracic: 79786 Tube thoracostomy Coding CPT Codes Pulmonary/Thoracic - Pulmonary and Thoracic: 33536 Tube thoracostomy ([id number]) Additional Codes Date of Service (PG.SURGERY)
[2023-12-09] MEDS: POLYETHYLENE (MIRALAX) 17 GM PACK PO PRN (14:25)
[2023-12-09] MEDS: ACETAMINOPHEN 325 MG TAB PO PRN (21:21)
[2023-12-10 06:53] LABS: Basophils # (auto) 0.03 K/uL (0.00-0.20); Basophils % (auto) 0.3 %; Eosinophils # (auto) 0.43 K/uL (0.00-0.50); Eosinophils % (auto) 4.6 %; Hematocrit (blood only) 34.5 % (37.0-47.0); Hemoglobin 10.4 g/dl (12.0-16.0); Immature Granulocytes # (auto) 0.04 K/uL (0.01-0.20); Immature Granulocytes % (auto) 0.4 %; Lymphocytes # (auto) 1.74 K/uL (1.20-3.40); Lymphocytes % (auto) 18.5 %; Mean Corpuscular Hemoglobin 22.3 pg (25.0-34.0); Mean Corpuscular Hgb Conc 30.1 g/dL (32.0-36.0); Mean Platelet Volume 10.9 fL (9.4-12.4); Monocytes # (auto) 1.05 K/uL (0.11-0.59); Monocytes % (auto) 11.2 %; Neutrophils # (auto) 6.12 K/uL (1.40-6.50); Platelet Count 230 K/uL (130-400); RDW Coefficient of Variation 21.2 % (11.5-14.5); RDW Standard Deviation 52.4 fL (36.4-46.3); Red Blood Count 4.66 M/uL (4.20-5.40); White Blood Count 9.41 K/ul (4.8-10.8)
[2023-12-10 07:03] LABS: BUN Creatinine Ratio 38.7 (10-20); Calcium 8.5 mg/dl (8.6-10.3); Creatinine Clr Calc Pharmacy 32.8 ml/min; Est GFR (African American) 64.5 ml/min; Est GFR (Non-African American) 55.6 ml/min; Magnesium 2.2 mg/dl (1.7-2.4); Phosphorus 3.6 mg/dl (2.5-4.9); Potassium 4.3 mmol/L (3.5-5.1)
[2023-12-10 07:30] LABS: Anisocytosis Present; Ovalocytes 1+; Polychromasia 1+
--- NOTE | 2023-12-10 07:30 | XRay Report ---
XR chest 1V portable CLINICAL HISTORY: f/u TECHNIQUE: Single frontal radiograph of the chest was obtained. Comparison: Comparison is made to chest radiograph 12/09/2023 FINDINGS: An implanted pacemaker is seen. Left chest tube appears partially but the pigtail remains within the thoracic cavity. Calcified aortic knob is seen. The lungs are clear. Left pneumothorax has slightly e nlarged measuring 15 mm compared to 10 mm previously. IMPRESSION: 1. Interval partial withdrawal of the chest tube, however the pigtail remains within the thoracic ca vity. 2. Mild interval enlargement of the left pneumothorax. ACT 112: Negative or not required by law. Electronically signed by: Jossue Gaviria M.D. 12/10/2023 7:28 AM
--- NOTE | 2023-12-10 10:09 | Pulmonology Progress Note ---
Date of Service December 10, 2023 Assessment & Plan (1) Iatrogenic pneumothorax: (2) Second degree AV block: Plan -- Iatrogenic pneumothorax Small left apical and lateral S/p pigtail catheter placement 12/09/2023 -- Secondary AV block with syncopal episode S/p PPM 12/08/2023 Plan: Chest x-ray from today shows worsening in the size of the pneumothorax, chest tube has been retracted but is still within the thoracic cavity I will put it to continuous suction -20 There was no continuous air bubbling. Will continue with negative suction for 24 hours and try to see if we are able to clamp the tube tomorrow. Case was discussed with RN at bedside Please note the above document was generated using voice recognition software. It may contain grammatical, syntax or spelling errors.Any formal questions or concerns about the content, text or information contained within the body of this dictation should be directly addressed to the provider for clarification. Admission and Anticipated Discharge Date Admission Date: December 06, 2023 Subjective Patient seen and examined at bedside. No acute distress, no AutoSense overnight She was saturating 95 to 96% on room air Denied any significant discomfort at the chest tube site. The chest tube has been retracted a little bit likely from the movement of the patient Denied any nausea or vomiting Has been afebrile Fair appetite Review of Systems 2 Review of Systems: All systems reviewed & are unremarkable except as noted in Subjective Physical Exam 2 Physical Exam: Constitutional: No acute distress, frail-appearing HEENT: EOMI, PERRLA, arcus senilis bilaterally Respiratory system: Decreased air entry bilaterally, no wheeze, no rhonchi, mild crackles bilaterally CVS: S1-S2 positive, positive 2 out of 6 systolic murmur appreciated best at aorta, left-sided PPM Abdomen: Soft, nontender, nondistended, positive bowel sounds x4 Extremities: +2 pulses bilaterally radialis/ dorsalis pedis, no cyanosis, minimal pitting edema bilateral lower extremity, osteoarthritic changes are appreciated bilaterally in the fingers Neuro: Awake alert oriented x3 Psych: Normal mood and affect G/U: No Saleh Musculoskeletal: Left mastectomy scar appreciated on the anterior chest Skin: no rashes, warm and dry Lymphatic: no cervical or axillary lymphadenopathy Results & Data Results & Data Vital Signs (Past 12 Hours) Vital Signs Temp Pulse Pulse Resp BP Pulse Ox O2 Del Method 12/10/23 09:44 Room Air 12/10/23 07:44 36.3 C L 86 17 112/70 97 Room Air 12/10/23 02:47 36.5 C 80 18 108/65 97 Room Air 12/10/23 00:00 79 12/09/23 22:57 36.5 C 82 18 104/65 96 Room Air Laboratory Results 12/10/23 06:12 12/10/23 06:12 PG Care Time/CCT Total # of Minutes Spent Total Time Spent with Patient: Total time spent is greater than 50% in coordination of care (as documented) at patient's floor/unit and/or counseling patient: Coding Level of Care Code 49340 SUB INP/OBS CARE 2/35MIN Diagnoses Iatrogenic pneumothorax J95.811 Second degree AV block I44.1
--- NOTE | 2023-12-10 15:22 | Hospitalist Progress Note ---
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 as a result wheel lacer and truer/pulm consulted for pneumothorax - stable on room air, had chest tube placed 12/08 - slight increase in size of pneumothorax, chest tube placed to suction - recheck CXR in AM PT/OT - consulted, recommending rehab - CM following, [facility] (2) Second degree AV block: Plan: See syncope plan Lyme screen negative (3) Chest x-ray abnormality: Plan: Chest x-ray and CT vesicle spine note right apical abnormality representing possible nodule versus scar tissue Recommend repeat chest CT in 3 months - will defer to PCP for ordering so can be followed up on (4) Anemia: Plan: Patient has a drop in MCV from 99 and May of this year to 74 today with MCHC of 29. Hgb is stable. Iron panel - iron low at 14, transferrin 4% - started on PO iron every other day - hgb stable B12 WNL She has a known history of iron deficiency anemia from previous GI bleeds -pt denies melena or hematochezia Plan Chronic conditions: HTN: stable, continue home Lisinopril Disposition: continued inpatient star pneumothorax management Updated family at bedside 12/06 and 12/07 LM for daughter 12/09 Admission and Anticipated Discharge Date Admission Date: December 06, 2023 Subjective Patient seen sitting in bed this morning. She had worked with therapy and requested to be back in bed. Denies shortness of breath. moving bowels Tele - paced 70s Review of Systems Review of Systems: All systems reviewed & are unremarkable except as noted in Subjective Physical Exam Physical Exam: General: NAD, VS as above Resp: normal respiratory effort, no wheezing. stable on room air CV: RRR, no murmur. Dressing over pacemaker site, c/d/i Abd: normal bowel sounds, non tender, no hepatosplenomegaly Extremities: Moves all extremities, no edema, Neuro: A&O x3, Skin: intact, no lesions noted Results & Data Results & Data Vital Signs (Past 12 Hours) Vital Signs Temp Pulse Resp BP Pulse Ox O2 Del Method 12/10/23 14:36 36.9 C 77 17 98/60 L 96 Room Air 12/10/23 10:39 36.6 C 74 17 114/68 96 Room Air 12/10/23 09:44 Room Air 12/10/23 07:44 36.3 C L 86 17 112/70 97 Room Air Laboratory Results CBC, chemistry, mag and phos reviewed Diagnostic Findings CXR reviewed PG Care Time/CCT Total # of Minutes Spent Total Time Spent with Patient: Total time spent is greater than 50% in coordination of care (as documented) at patient's floor/unit and/or counseling patient: Coding Level of Care Code 08787 SUB INP/OBS CARE 3/50MIN Diagnoses Syncope R55 Syncope type: unspecified Second degree AV block I44.1 Chest x-ray abnormality R93.89 Anemia D64.9 (1) Syncope Syncope type: unspecified Qualified Code(s): R55 - Syncope and collapse
[2023-12-11 06:43] LABS: Basophils # (auto) 0.04 K/uL (0.00-0.20); Basophils % (auto) 0.5 %; Eosinophils # (auto) 0.33 K/uL (0.00-0.50); Eosinophils % (auto) 4.1 %; Hematocrit (blood only) 33.3 % (37.0-47.0); Hemoglobin 10.1 g/dl (12.0-16.0); Immature Granulocytes # (auto) 0.09 K/uL (0.01-0.20); Immature Granulocytes % (auto) 1.1 %; Lymphocytes % (auto) 16.3 %; Mean Corpuscular Hemoglobin 22.5 pg (25.0-34.0); Mean Corpuscular Hgb Conc 30.3 g/dL (32.0-36.0); Mean Corpuscular Volume 74.2 fL (80.0-100.0); Mean Platelet Volume 11.2 fL (9.4-12.4); Monocytes # (auto) 0.88 K/uL (0.11-0.59); Neutrophils # (auto) 5.33 K/uL (1.40-6.50); Platelet Count 204 K/uL (130-400); RDW Coefficient of Variation 21.5 % (11.5-14.5); Red Blood Count 4.49 M/uL (4.20-5.40); White Blood Count 7.97 K/ul (4.8-10.8)
[2023-12-11 07:17] LABS: Anisocytosis Present; Microcytosis Present; Ovalocytes 1+; Polychromasia 1+
--- NOTE | 2023-12-11 07:49 | Pulmonology Progress Note ---
Date of Service December 11, 2023 Assessment & Plan (1) Iatrogenic pneumothorax: (2) Second degree AV block: Plan -- Iatrogenic pneumothorax Small left apical and lateral S/p pigtail catheter placement 12/09/2023 -- Secondary AV block with syncopal episode S/p PPM 12/08/2023 Plan: Chest x-ray from today still shows persistent left-sided pneumothorax with slight increase in size I increased the suction to -30. There was minimal air leak appreciated and it stopped in less than 5 seconds I will repeat a chest x-ray later today around 1 PM. If the patient still has persistent left-sided pneumothorax then I will order a CT chest without contrast Case was discussed with RN at bedside Please note the above document was generated using voice recognition software. It may contain grammatical, syntax or spelling errors.Any formal questions or concerns about the content, text or information contained within the body of this dictation should be directly addressed to the provider for clarification. Admission and Anticipated Discharge Date Admission Date: December 06, 2023 Subjective Patient seen and examined at bedside. No acute distress, notable symptoms overnight She was saturating well on room air. Denied any chest pain Nurse stated that she had a good night sleep No headache or blurry vision Has been afebrile Review of Systems 2 Review of Systems: All systems reviewed & are unremarkable except as noted in Subjective Physical Exam 2 Physical Exam: Constitutional: No acute distress, frail-appearing HEENT: EOMI, PERRLA, arcus senilis bilaterally Respiratory system: Decreased air entry bilaterally, no wheeze, no rhonchi, mild crackles bilaterally CVS: S1-S2 positive, positive 2 out of 6 systolic murmur appreciated best at aorta, left-sided PPM Abdomen: Soft, nontender, nondistended, positive bowel sounds x4 Extremities: +2 pulses bilaterally radialis/ dorsalis pedis, no cyanosis, minimal pitting edema bilateral lower extremity, osteoarthritic changes are appreciated bilaterally in the fingers Neuro: Awake alert oriented x3 Psych: Normal mood and affect G/U: No Saleh Musculoskeletal: Left mastectomy scar appreciated on the anterior chest Skin: no rashes, warm and dry Lymphatic: no cervical or axillary lymphadenopathy Results & Data Results & Data Vital Signs (Past 12 Hours) Vital Signs Temp Pulse Resp BP Pulse Ox O2 Del Method O2 Flow Rate 12/11/23 07:20 36.5 C 82 16 116/71 94 Room Air 12/11/23 02:46 37 C 62 18 120/66 94 Room Air 12/10/23 22:54 36.6 C 88 18 116/68 93 Nasal Cannula 2 12/10/23 20:00 Room Air Laboratory Results 12/11/23 05:46 12/10/23 06:12 PG Care Time/CCT Total # of Minutes Spent Total Time Spent with Patient: Total time spent is greater than 50% in coordination of care (as documented) at patient's floor/unit and/or counseling patient: Coding Level of Care Code 15602 SUB INP/OBS CARE 235MIN Diagnoses Iatrogenic pneumothorax J95.811 Second degree AV block I44.1
--- NOTE | 2023-12-11 08:35 | XRay Report ---
XR chest 1V portable CLINICAL HISTORY: f/u COMPARISON STUDY: Chest radiograph December 10, 2023. FINDINGS: Left pleural catheter remains in place. A small to moderate left pneumothorax has mildly in creased in size since prior exam. Superior pleural separation measures 2 cm, previously 1.5 cm. Left basilar opacity persists. Left subclavian pacer is in place. Subpleural right apical opacity favors s carring. IMPRESSION: Left pleural catheter in place. Small to moderate left pneumothorax, slightly increased i n size. ACT 112: Negative or not required by law. Electronically signed by: Rustam Mohan M.D. 12/11/2023 8:33 AM
--- NOTE | 2023-12-11 09:35 | Cardiology Progress Note ---
Date of Service December 11, 2023 Assessment & Plan (1) Second degree AV block: (2) Syncope: (3) Iatrogenic pneumothorax: Plan ASSESSMENT/PLAN: 1. Second-degree AV block: The patient underwent implantation of dual-chamber permanent pacemaker with left bundle pacing lead on Friday. There was some oversensing of T waves which compromised some ventricular pacing. I reprogrammed the device for a lower sensitivity and this seems to have solved the issue. Otherwise normal function. 2. Syncope: Likely due to AV block as above. Status post pacemaker. 3. Pneumothorax: Iatrogenic related to her implant procedure. No overt symptoms. Oxygenating well. Normal respiratory effort. Appears to be a persistent pneumothorax. Hopefully with adjustment of the tube earlier this morning will see resolution. Admission and Anticipated Discharge Date Admission Date: December 06, 2023 Subjective This morning the patient clinically feeling well. She was able to ambulate with her walker yesterday. She did report some mild discomfort with movement of the chest tube earlier this morning, but generally speaking no pain. No pain at the implant site. Physical Exam Physical Exam: Alert. Oriented. Answered all questions appropriately Normal respiratory effort Device implant site without hematoma, significant ecchymosis or drainage. ENMT: Mallampati Class: III Respiratory: normal respiratory effort Results & Data Vital Signs (Past 12 Hours) Vital Signs Temp Pulse Pulse Resp BP Pulse Ox O2 Del Method 12/11/23 08:00 65 12/11/23 07:20 36.5 C 82 16 116/71 94 Room Air 12/11/23 02:46 37 C 62 18 120/66 94 Room Air 12/10/23 22:54 36.6 C 88 18 116/68 93 Nasal Cannula O2 Flow Rate 12/11/23 08:00 12/11/23 07:20 12/11/23 02:46 12/10/23 22:54 2 Laboratory Results Abnormal Lab Results 12/11/23 05:46 WBC 7.97 RBC 4.49 Hgb 10.1 L Hct 33.3 L MCV 74.2 L MCH 22.5 L MCHC 30.3 L RDW Std Deviation 52.0 H RDW Coeff of Felicia 21.5 H Plt Count 204 MPV 11.2 Immature Gran % (Auto) 1.1 Neut % (Auto) 67.0 Lymph % (Auto) 16.3 Mellette % (Auto) 11.0 Eos % (Auto) 4.1 Baso % (Auto) 0.5 Neut # (Auto) 5.33 Lymph # (Auto) 1.30 Mellette # (Auto) 0.88 H Eos # (Auto) 0.33 Baso # (Auto) 0.04 Immature Gran # (Auto) 0.09 Polychromasia 1+ Anisocytosis Present Microcytosis Present Ovalocytes 1+ (2) Syncope Syncope type: unspecified Qualified Code(s): R55 - Syncope and collapse
--- NOTE | 2023-12-11 14:16 | XRay Report ---
XR chest 1V portable CLINICAL HISTORY: f/u COMPARISON STUDY: Chest radiograph performed earlier today FINDINGS: Exam is mildly compromised given difficulty positioning. Left pleural catheter is in place. The left pneumothorax has significantly decreased in size since prior exam. There is a small residua l left apical pneumothorax. A left subclavian pacer is in place. There is a hiatal hernia. Subpleural right apical density favor scarring. Correlation with cervical spine CT of December 06, 2023. IMPRESSION: Left pleural catheter in place. Significant decrease in size of a now small left pneumot horax. ACT 112: Negative or not required by law. Electronically signed by: Rustam Mohan M.D. 12/11/2023 2:14 PM
--- NOTE | 2023-12-11 16:40 | Hospitalist Progress Note ---
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 consulted for pneumothorax - stable on room air, had chest tube placed 12/08 - slight increase in size of pneumothorax, chest tube placed to suction and suction increased - recheck CXR this afternoon with decrease in size of pneumo PT/OT - consulted, recommending rehab - CM following, [facility] (2) Second degree AV block: Plan: See syncope plan Lyme screen negative (3) Chest x-ray abnormality: Plan: Chest x-ray and CT vesicle spine note right apical abnormality representing possible nodule versus scar tissue Recommend repeat chest CT in 3 months - will defer to PCP for ordering so can be followed up on (4) Anemia: Plan: Patient has a drop in MCV from 99 and May of this year to 74 today with MCHC of 29. Hgb is stable. Iron panel - iron low at 14, transferrin 4% - started on PO iron every other day - hgb stable B12 WNL She has a known history of iron deficiency anemia from previous GI bleeds -pt denies melena or hematochezia Plan Chronic conditions: HTN: stable, continue home Lisinopril Disposition: continued inpatient stay for pneumothorax management Updated family at bedside 12/06 and 12/07 LM for daughter 12/09 Admission and Anticipated Discharge Date Admission Date: December 06, 2023 Subjective patient seen this afternoon up to the chair eating lunch does report some pain when Dr. Szymanski was moving the chest tube but otherwise doing well no shortness of breath Review of Systems Review of Systems: All systems reviewed & are unremarkable except as noted in Subjective Physical Exam Physical Exam: General: NAD, VS as above Resp: normal respiratory effort, no wheezing. stable on room air CV: RRR, no murmur. Dressing over pacemaker site, c/d/i Abd: normal bowel sounds, non tender, no hepatosplenomegaly Extremities: Moves all extremities, no edema, Neuro: A&O x3, Skin: intact, resolving bruise over neck from her fall Results & Data Results & Data Vital Signs (Past 12 Hours) Vital Signs Temp Pulse Pulse Resp BP Pulse Ox O2 Del Method 12/11/23 14:36 36.3 C L 83 17 96/58 L 95 Room Air 12/11/23 14:08 68 12/11/23 10:44 36.6 C 79 16 104/67 97 Room Air 12/11/23 08:12 Room Air 12/11/23 08:00 65 12/11/23 07:20 36.5 C 82 16 116/71 94 Room Air Laboratory Results CBC reviewed Diagnostic Findings CXR reviewed x 2 PG Care Time/CCT Total # of Minutes Spent Total Time Spent with Patient: Total time spent is greater than 50% in coordination of care (as documented) at patient's floor/unit and/or counseling patient: Coding Level of Care Code 47974 SUB INP/OBS CARE 3/50MIN Diagnoses Syncope R55 Syncope type: unspecified Second degree AV block I44.1 Chest x-ray abnormality R93.89 Anemia D64.9 (1) Syncope Syncope type: unspecified Qualified Code(s): R55 - Syncope and collapse
--- NOTE | 2023-12-12 08:23 | Pulmonology Progress Note ---
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 I made adjustment to the chest tube again and put a new dressing in. Unfortunately the tube has been pulled likely from the movement of the patient. I kept the suction to -30. On -40 I do get intermittent leak in the Sahar pleural VAC Repeat chest x-ray later today Case was discussed with RN at bedside Please note the above document was generated using voice recognition software. It may contain grammatical, syntax or spelling errors.Any formal questions or concerns about the content, text or information contained within the body of this dictation should be directly addressed to the provider for clarification. Admission and Anticipated Discharge Date Admission Date: December 06, 2023 Subjective Patient seen and examined at bedside. No acute distress, no AutoSense overnight She was saturating well on room air Denied any chest pain, mild discomfort at the site of the tube Has been afebrile Denies any cough Fair appetite No nausea or vomiting Review of Systems 2 Review of Systems: All systems reviewed & are unremarkable except as noted in Subjective Physical Exam 2 Physical Exam: Constitutional: No acute distress, frail-appearing HEENT: EOMI, PERRLA, arcus senilis bilaterally Respiratory system: Decreased air entry bilaterally, no wheeze, no rhonchi, mild crackles bilaterally CVS: S1-S2 positive, positive 2 out of 6 systolic murmur appreciated best at aorta, left-sided PPM Abdomen: Soft, nontender, nondistended, positive bowel sounds x4 Extremities: +2 pulses bilaterally radialis/ dorsalis pedis, no cyanosis, minimal pitting edema bilateral lower extremity, osteoarthritic changes are appreciated bilaterally in the fingers Neuro: Awake alert oriented x3 Psych: Normal mood and affect G/U: No Saleh Musculoskeletal: Left mastectomy scar appreciated on the anterior chest Skin: no rashes, warm and dry Lymphatic: no cervical or axillary lymphadenopathy Results & Data Results & Data Vital Signs (Past 12 Hours) Vital Signs Temp Pulse Pulse Resp BP Pulse Ox O2 Del Method 12/12/23 08:20 36.6 C 84 20 130/78 94 Room Air 12/12/23 07:49 86 12/12/23 02:38 36.3 C L 80 18 117/67 94 Room Air 12/12/23 00:00 71 12/11/23 23:50 36.9 C 88 20 122/73 95 Room Air Laboratory Results 12/11/23 05:46 12/10/23 06:12 PG Care Time/CCT Total # of Minutes Spent Total Time Spent with Patient: Total time spent is greater than 50% in coordination of care (as documented) at patient's floor/unit and/or counseling patient: Coding Level of Care Code 21316 SUB INP/OBS CARE 2/35MIN Diagnoses Iatrogenic pneumothorax J95.811 Second degree AV block I44.1
[2023-12-12] MEDS ORDERED: COUGH DROP (SUGAR FREE) LOZ 24 LOZ/1 BOX BUCCAL PRN (08:29)
--- NOTE | 2023-12-12 08:40 | XRay Report ---
XR chest 1V portable CLINICAL HISTORY: f/u COMPARISON STUDY: Chest radiograph December 11, 2023 at 1:01 PM. FINDINGS: Left pleural catheter remains in place. A small left pneumothorax has increased in size sin ce prior exam. There is no right pneumothorax. Left subclavian pacer is in place. A hiatal hernia is again noted. Subpleural right apical density is unchanged and favor scarring. Soft tissue gas within the left axilla is again noted. IMPRESSION: Left pleural catheter in place. Increase in size of a small left pneumothorax. ACT 112: Negative or not required by law. Electronically signed by: Rustam Mohan M.D. 12/12/2023 8:39 AM
[2023-12-12 09:56] LABS: Hematocrit (blood only) 36.4 % (37.0-47.0); Hemoglobin 10.7 g/dl (12.0-16.0); Mean Corpuscular Hemoglobin 22.4 pg (25.0-34.0); Mean Corpuscular Hgb Conc 29.4 g/dL (32.0-36.0); Mean Corpuscular Volume 76.2 fL (80.0-100.0); Mean Platelet Volume 11.1 fL (9.4-12.4); Platelet Count 189 K/uL (130-400); RDW Coefficient of Variation 22.3 % (11.5-14.5); RDW Standard Deviation 54.7 fL (36.4-46.3); Red Blood Count 4.78 M/uL (4.20-5.40); White Blood Count 7.72 K/ul (4.8-10.8)
--- NOTE | 2023-12-12 14:26 | XRay Report ---
XR chest 1V portable HISTORY: 88 years-old Female f/u acute shortness of breath COMPARISON: Chest radiograph same day at 8:30 AM TECHNIQUE: AP view of the chest FINDINGS: A left-sided pleural catheter remains in place. A small left pneumothorax has decreased in size from prior, now with pleural separation of 3 mm. There is no right pneumothorax. Left subclavian pacer is in place. A hiatal hernia is again noted. Subpleural right apical density is unchanged and favor scar ring. Soft tissue gas within the left axilla is again noted. IMPRESSION: Left-sided pleural catheter in place with decreased size of the small left apical pneumot horax. ACT 112: Negative or not required by law. The above report was generated using voice recognition software. It may contain grammatical, syntax o r spelling errors. Electronically signed by: Jacques Luna M.D. 12/12/2023 2:25 PM
--- NOTE | 2023-12-12 14:46 | Hospitalist Progress Note ---
Date of Service December 12, 2023 Assessment & Plan (1) Syncope: Plan: Patient presented to the ED on 12/05 following a syncopal episode EKG/tele revealed type 1 second degree AV block Echo: EF > 70s, sclerotic aortic valve without significant stenosis Cardiology consulted -Syncope likely due to AV block -S/p pacemaker insertion with Dr. 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 - stable on room air, had chest tube placed 12/08 - slight increase in size of pneumothorax, chest tube placed to suction and suction increased - recheck CXR this afternoon with decrease in size of pneumo PT/OT - consulted, recommending rehab - CM following, [facility] (2) Second degree AV block: Plan: See syncope plan Lyme screen negative (3) Chest x-ray abnormality: Plan: Chest x-ray and CT vesicle spine note right apical abnormality representing possible nodule versus scar tissue Recommend repeat chest CT in 3 months - will defer to PCP for ordering so can be followed up on (4) Anemia: Plan: Patient has a drop in MCV from 99 and May of this year to 74 today with MCHC of 29. Hgb is stable. Iron panel - iron low at 14, transferrin 4% - started on PO iron every other day - hgb stable B12 WNL She has a known history of iron deficiency anemia from previous GI bleeds -pt denies melena or hematochezia Plan Chronic conditions: HTN: stable, continue home Lisinopril Disposition: continued inpatient stay for pneumothorax management Updated family at bedside 12/06 and 12/[address] Rose, pulmonology Admission and Anticipated Discharge Date Admission Date: December 06, 2023 Subjective patient seen sitting up in the chair. Overall feeling well, questioning why this keeps happening. She did have some discomfort with the chest tube repositioning Good appetite and moving bowels Telemetry paced in the 70s Review of Systems Review of Systems: All systems reviewed & are unremarkable except as noted in Subjective Physical Exam Physical Exam: General: NAD, VS as above Resp: normal respiratory effort, no wheezing. stable on room air CV: RRR, no murmur. Dressing over pacemaker site, c/d/i Abd: normal bowel sounds, non tender, no hepatosplenomegaly Extremities: Moves all extremities, no edema, Neuro: A&O x3, Skin: intact, resolving bruise over neck from her fall Results & Data Results & Data Vital Signs (Past 12 Hours) Vital Signs Temp Pulse Pulse Resp BP Pulse Ox O2 Del Method 12/12/23 11:54 36.3 C L 82 18 111/68 99 Room Air 12/12/23 08:20 36.6 C 84 20 130/78 94 Room Air 12/12/23 07:49 86 Laboratory Results CBC reviewed Diagnostic Findings chest x-ray reviewed x 2 PG Care Time/CCT Total # of Minutes Spent Total Time Spent with Patient: Total time spent is greater than 50% in coordination of care (as documented) at patient's floor/unit and/or counseling patient: Coding Level of Care Code 45539 SUB INP/OBS CARE 3/50MIN Diagnoses Syncope R55 Syncope type: unspecified Second degree AV block I44.1 Chest x-ray abnormality R93.89 Anemia D64.9 (1) Syncope Syncope type: unspecified Qualified Code(s): R55 - Syncope and collapse
--- NOTE | 2023-12-13 08:00 | Pulmonology Progress Note ---
Date of Service December 13, 2023 Assessment & Plan (1) Iatrogenic pneumothorax: (2) Second degree AV block: Plan -- Iatrogenic pneumothorax Small left apical and lateral S/p pigtail catheter placement 12/09/2023 -- Secondary AV block with syncopal episode S/p PPM 12/08/2023 Plan: Chest x-ray from today finally does not show any signs of pneumothorax. Chest tube is in good position. I will put the chest tube to waterseal, repeat chest x-ray around 2 PM. If the lung is still up then we will continue with waterseal till tomorrow. Case was discussed with RN at bedside Please note the above document was generated using voice recognition software. It may contain grammatical, syntax or spelling errors.Any formal questions or concerns about the content, text or information contained within the body of this dictation should be directly addressed to the provider for clarification. Admission and Anticipated Discharge Date Admission Date: December 06, 2023 Subjective Patient seen and examined at bedside. No acute distress, notable symptoms overnight She just finished her breakfast. Denies any nausea or vomiting. Fair appetite No headache, no blurry vision Occasional cough with clear phlegm Denies any shortness of breath Review of Systems 2 Review of Systems: All systems reviewed & are unremarkable except as noted in Subjective Physical Exam 2 Physical Exam: Constitutional: No acute distress, frail-appearing HEENT: EOMI, PERRLA, arcus senilis bilaterally Respiratory system: Decreased air entry bilaterally, no wheeze, no rhonchi, mild crackles bilaterally CVS: S1-S2 positive, positive 2 out of 6 systolic murmur appreciated best at aorta, left-sided PPM Abdomen: Soft, nontender, nondistended, positive bowel sounds x4 Extremities: +2 pulses bilaterally radialis/ dorsalis pedis, no cyanosis, minimal pitting edema bilateral lower extremity, osteoarthritic changes are appreciated bilaterally in the fingers Neuro: Awake alert oriented x3 Psych: Normal mood and affect G/U: No Saleh Musculoskeletal: Left mastectomy scar appreciated on the anterior chest Skin: no rashes, warm and dry Lymphatic: no cervical or axillary lymphadenopathy Results & Data Results & Data Vital Signs (Past 12 Hours) Vital Signs Temp Pulse Pulse Resp BP Pulse Ox O2 Del Method 12/13/23 04:12 36.5 C 82 16 103/65 94 Room Air 09/14/24 00:06 36.5 C 85 18 98/62 L 96 Room Air 12/12/23 22:00 77 Laboratory Results 12/12/23 09:22 12/10/23 06:12 PG Care Time/CCT Total # of Minutes Spent Total Time Spent with Patient: Total time spent is greater than 50% in coordination of care (as documented) at patient's floor/unit and/or counseling patient: Coding Level of Care Code 96053 SUB INP/OBS CARE 2/35MIN Diagnoses Iatrogenic pneumothorax J95.811 Second degree AV block I44.1
--- NOTE | 2023-12-13 10:38 | XRay Report ---
XR chest 1V portable CLINICAL HISTORY: f/u TECHNIQUE: Single frontal radiograph of the chest was obtained. Comparison: Comparison is made to chest radiograph 12/12/2023 FINDINGS: Stable left chest tube and dual-lead pacemaker. Calcified aortic knob is seen. The lungs are clear. L ikely stable trace left apical pneumothorax. IMPRESSION: Likely stable trace left apical pneumothorax. Left pleural catheter is in place. ACT 112: Negative or not required by law. Electronically signed by: Jossue Gaviria M.D. 12/13/2023 10:36 AM
--- NOTE | 2023-12-13 11:05 | Hospitalist Progress Note ---
Date of Service December 13, 2023 Assessment & Plan (1) Syncope: Plan: Patient presented to the ED on 12/05 following a syncopal episode EKG/tele revealed type 1 second degree AV block Echo: EF > 70s, sclerotic aortic valve without significant stenosis Cardiology consulted -Syncope likely due to AV block -S/p pacemaker insertion with Dr. 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 chest ray 12/12 Limited to repeat chest x- ray this afternoon - chest tube to waterseal PT/OT - consulted, recommending rehab - CM following, [facility] (2) Second degree AV block: Plan: See syncope plan Lyme screen negative (3) Chest x-ray abnormality: Plan: Chest x-ray and CT vesicle spine note right apical abnormality representing possible nodule versus scar tissue Recommend repeat chest CT in 3 months - will defer to PCP for ordering so can be followed up on (4) Anemia: Plan: Patient has a drop in MCV from 99 and May of this year to 74 today with MCHC of 29. Hgb is stable. Iron panel - iron low at 14, transferrin 4% - started on PO iron every other day - hgb stable B12 WNL She has a known history of iron deficiency anemia from previous GI bleeds -pt denies melena or hematochezia Plan Chronic conditions: HTN: stable, continue home Lisinopril Disposition: continued inpatient stay for pneumothorax management Updated family at bedside 12/06 and 12/07 Admission and Anticipated Discharge Date Admission Date: December 06, 2023 Subjective Patient seen sitting up in the chair after breakfast. Relieved to hear that her pneumothorax is getting smaller. Had a bowel movement today Denies shortness of breath or chest pain. No acute concerns Telemetry paced in the 80s Review of Systems Review of Systems: All systems reviewed & are unremarkable except as noted in Subjective Physical Exam Physical Exam: General: NAD, VS as above Resp: normal respiratory effort, no wheezing. stable on room air CV: RRR, no murmur. Dressing over pacemaker site, c/d/i Abd: normal bowel sounds, non tender, no hepatosplenomegaly Extremities: Moves all extremities, no edema, Neuro: A&O x3, Skin: intact, resolving bruise over neck from her fall Results & Data Results & Data Vital Signs (Past 12 Hours) Vital Signs Temp Pulse Pulse Resp BP Pulse Ox O2 Del Method 12/13/23 08:15 Room Air 12/13/23 08:15 76 12/13/23 08:14 97.2 F L 63 20 115/74 98 Room Air 12/13/23 04:12 97.7 F 82 16 103/65 94 Room Air 12/13/23 00:06 97.7 F 85 18 98/62 L 96 Room Air Laboratory Results Diagnostic Findings chest x-ray reviewed PG Care Time/CCT Total # of Minutes Spent Total Time Spent with Patient: Total time spent is greater than 50% in coordination of care (as documented) at patient's floor/unit and/or counseling patient: Coding Level of Care Code 93327 SUB INP/OBS CARE 2/35MIN Diagnoses Syncope R55 Syncope type: unspecified Second degree AV block I44.1 Chest x-ray abnormality R93.89 Anemia D64.9 (1) Syncope Syncope type: unspecified Qualified Code(s): R55 - Syncope and collapse
--- NOTE | 2023-12-13 15:24 | XRay Report ---
XR chest 1V portable CLINICAL HISTORY: f/u TECHNIQUE: Single frontal radiograph of the chest was obtained. Comparison: Comparison is made to chest radiograph 12/13/2023 FINDINGS: Lines and tubes are stable. The cardiomediastinal silhouette is normal. The lungs are clear. Left api ying pneumothorax is less well seen on this exam. IMPRESSION: Stable findings and tubes. Left apical pneumothorax is less well seen on this exam. ACT 112: Negative or not required by law. Electronically signed by: Jossue Gaviria M.D. 12/13/2023 3:23 PM
--- NOTE | 2023-12-14 07:52 | Pulmonology Progress Note ---
Date of Service December 14, 2023 Assessment & Plan (1) Iatrogenic pneumothorax: (2) Second degree AV block: Plan -- Iatrogenic pneumothorax Small left apical and lateral S/p pigtail catheter placement 12/09/2023 -- Secondary AV block with syncopal episode S/p PPM 12/08/2023 Plan: Chest x-ray from the morning did not show any signs of pneumothorax Chest tube has been clamped as of 8 AM. Repeat a chest x-ray around 2 PM and if there is no pneumothorax will discontinue chest tube today Case was discussed with RN at bedside Please note the above document was generated using voice recognition software. It may contain grammatical, syntax or spelling errors.Any formal questions or concerns about the content, text or information contained within the body of this dictation should be directly addressed to the provider for clarification. Admission and Anticipated Discharge Date Admission Date: December 06, 2023 Subjective Patient seen and examined at bedside. No acute distress, no adverse events overnight Denied any discomfort around the chest tube site Slept well Saturating well on room air Fair appetite, no nausea or vomiting Review of Systems 2 Review of Systems: All systems reviewed & are unremarkable except as noted in Subjective Physical Exam 2 Physical Exam: Constitutional: No acute distress, frail-appearing HEENT: EOMI, PERRLA, arcus senilis bilaterally Respiratory system: Decreased air entry bilaterally, no wheeze, no rhonchi, mild crackles bilaterally CVS: S1-S2 positive, positive 3 out of 6 systolic murmur appreciated best at aorta, left-sided PPM Abdomen: Soft, nontender, nondistended, positive bowel sounds x4 Extremities: +2 pulses bilaterally radialis/ dorsalis pedis, no cyanosis, minimal pitting edema bilateral lower extremity, osteoarthritic changes are appreciated bilaterally in the fingers Neuro: Awake alert oriented x3 Psych: Normal mood and affect G/U: No Saleh Musculoskeletal: Left mastectomy scar appreciated on the anterior chest Skin: no rashes, warm and dry Lymphatic: no cervical or axillary lymphadenopathy Results & Data Results & Data Vital Signs (Past 12 Hours) Vital Signs Temp Pulse Resp BP Pulse Ox O2 Del Method 12/14/23 03:05 36.5 C 75 16 106/66 96 Room Air 12/13/23 22:54 36.3 C L 80 16 103/57 L 96 Room Air Laboratory Results 12/12/23 09:22 12/10/23 06:12 PG Care Time/CCT Total # of Minutes Spent Total Time Spent with Patient: Total time spent is greater than 50% in coordination of care (as documented) at patient's floor/unit and/or counseling patient: Coding Level of Care Code 60642 SUB INP/OBS CARE 2/35MIN Diagnoses Iatrogenic pneumothorax J95.811 Second degree AV block I44.1
--- NOTE | 2023-12-14 09:02 | XRay Report ---
XR chest 1V portable CLINICAL HISTORY: f/u TECHNIQUE: Single frontal radiograph of the chest was obtained. Comparison: Comparison is made to chest radiograph 12/13/2023 FINDINGS: Lines and tubes are stable. The cardiomediastinal silhouette is normal. The lungs are clear. No evide nce of pleural effusion or pneumothorax. Subcutaneous emphysema is again noted. IMPRESSION: Stable lines and tubes including left chest tube. No pneumothorax is seen on today's exam. ACT 112: Negative or not required by law. Electronically signed by: Jossue Gaviria M.D. 12/14/2023 9:01 AM
--- NOTE | 2023-12-14 12:03 | Hospitalist Progress Note ---
Date of Service December 14, 2023 Assessment & Plan (1) Syncope: Plan: Patient presented to the ED on 12/05 following a syncopal episode EKG/tele revealed type 1 second degree AV block Echo: EF > 70s, sclerotic aortic valve without significant stenosis Cardiology consulted -Syncope likely due to AV block -S/p pacemaker insertion with Dr. 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 - stable on room air, had chest tube placed 12/08 - CXR again showing no pneumo, Chest tube clamped, possible removal this afternoon pending 2pm xray PT/OT - consulted, recommending rehab - CM following, [facility] (2) Second degree AV block: Plan: See syncope plan Lyme screen negative (3) Chest x-ray abnormality: Plan: Chest x-ray and CT vesicle spine note right apical abnormality representing possible nodule versus scar tissue Recommend repeat chest CT in 3 months - will defer to PCP for ordering so can be followed up on (4) Anemia: Plan: Patient has a drop in MCV from 99 and May of this year to 74 today with MCHC of 29. Hgb is stable. Iron panel - iron low at 14, transferrin 4% - started on PO iron every other day - hgb stable B12 WNL She has a known history of iron deficiency anemia from previous GI bleeds -pt denies melena or hematochezia Plan Chronic conditions: HTN: stable, continue home Lisinopril Disposition: continued inpatient stay for pneumothorax management Updated family at bedside 12/06 and 12/07 and 12/12 Admission and Anticipated Discharge Date Admission Date: December 06, 2023 Subjective sitting up in the chair feeling well no shortness of breath or CP Review of Systems Review of Systems: All systems reviewed & are unremarkable except as noted in Subjective Physical Exam Physical Exam: General: NAD, VS as above Resp: normal respiratory effort, no wheezing. stable on room air CV: RRR, no murmur. Dressing over pacemaker site, c/d/i Abd: normal bowel sounds, non tender, no hepatosplenomegaly Extremities: Moves all extremities, no edema, chronic defomities of b/l knuckles Neuro: A&O x3, Skin: intact, resolving bruise over neck from her fall Results & Data Results & Data Vital Signs (Past 12 Hours) Vital Signs Temp Pulse Pulse Resp BP Pulse Ox O2 Del Method 12/14/23 11:57 97.7 F 84 20 103/66 97 Room Air 12/14/23 08:11 97.9 F 78 18 106/74 98 Room Air 12/14/23 07:57 Room Air 12/14/23 07:57 76 12/14/23 03:05 97.7 F 75 16 106/66 96 Room Air Diagnostic Findings CXR reviewed PG Care Time/CCT Total # of Minutes Spent Total Time Spent with Patient: Total time spent is greater than 50% in coordination of care (as documented) at patient's floor/unit and/or counseling patient: Coding Level of Care Code 94533 SUB INP/OBS CARE 2/35MIN Diagnoses Syncope R55 Syncope type: unspecified Second degree AV block I44.1 Chest x-ray abnormality R93.89 Anemia D64.9 (1) Syncope Syncope type: unspecified Qualified Code(s): R55 - Syncope and collapse
--- NOTE | 2023-12-14 14:21 | Procedure Note ---
Procedure Note Date of Service December 14, 2023 Procedure: Pigtail chest tube removal Potato Spotter: Dr. Raj Rose Indication: Resolved pneumothorax Consent: Verbal consent obtained from the patient Anesthesia: None Procedure: Under aseptic precautions, the old dressing was removed The pigtail catheter was unwound. It was gradually removed on examination. The pigtail catheter was found to be intact. Vaseline gauze was placed on the incision site, it was covered by 4 x 4 and dressed with silk tape The patient tolerated the procedure without obvious complication Complications: None Blood loss: Less than 2 cc. [facility] [place] Procedure Codes (Charges) Pulmonary/Thoracic Procedure 1: Pulmonary and Thoracic: 00369 Remove lung catheter Coding CPT Codes Pulmonary/Thoracic - Pulmonary and Thoracic: 14791 Remove lung catheter ([id number]) Additional Codes Date of Service ([facility].SURGERY)
--- NOTE | 2023-12-14 16:38 | XRay Report ---
XR chest 1V portable CLINICAL HISTORY: f/u TECHNIQUE: Single frontal radiograph of the chest was obtained. Comparison: Comparison is made to chest radiograph 12/14/2023 FINDINGS: Lines and tubes are stable. Calcified aortic knob is seen. The lungs are clear. No evidence of pleura l effusion or pneumothorax. IMPRESSION: Stable left pleural catheter with no radiographic evidence of pneumothorax. ACT 112: Negative or not required by law. Electronically signed by: Jossue Gaviria M.D. 12/14/2023 4:36 PM
[2023-12-15 07:57] VITALS: RESP 18
[2023-12-15] MEDS ORDERED: ARTIFICIAL TEARS OPB PRN (11:39)
[2023-12-15 11:48] VITALS: BP 103/62; TEMP 98.2; O2SAT 98
[2023-12-15 14:15] VITALS: PULSE 77
--- NOTE | 2023-12-15 18:40 | Discharge Summary ---
Discharge Summary Date of Service December 15, 2023 Principal Dx & Hospital Course #1 = Principal Diagnosis (1) Syncope: Patient presented to the ED on 12/05 following a syncopal episode EKG/tele revealed type 1 second degree AV block Echo: EF > 70s, sclerotic aortic valve without significant stenosis Cardiology consulted -Syncope likely due to AV block -S/p pacemaker insertion with Dr. 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 consulted for pneumothorax - stable on room air, had chest tube placed 12/08 - CXR again showing no pneumo, Chest tube removed 12/13 PT/OT - consulted, recommending rehab -discharged to [facility] 12/14 (2) Second degree AV block: See syncope plan Lyme screen negative (3) Chest x-ray abnormality: Chest x-ray and CT vesicle spine note right apical abnormality representing possible nodule versus scar tissue Recommend repeat chest CT in 3 months - will defer to PCP for ordering so can be followed up on (4) Anemia: Patient has a drop in MCV from 99 and May of this year to 74 today with MCHC of 29. Hgb is stable. Iron panel - iron low at 14, transferrin 4% - started on PO iron every other day - hgb stable B12 WNL She has a known history of iron deficiency anemia from previous GI bleeds -pt denies melena or hematochezia Plan Chronic conditions: HTN: stable, continue home Lisinopril Notes For Next Care Provider Patient presented after a syncopal episode likely due to type I second-degree AV block. She had a pacemaker placed on 12/08, but unfortunately developed a pneumothorax following this. She has a chest tube placed which was removed on 12/13 after pneumothorax resolved. [facility]. Of note, recommend repeat chest CT in 3 months as a precaution given asymmetric right apical densities noted on C-spine CT. Medication Changes From Visit Started p.o. iron every other day Admission HPI Per Admitting Provider April Yanez is a 88 year-old female with past medical history of breast cancer, arthritis, HTN, and Lupus who presented to [facility] ED on 12/06/2023 via EMS after experiencing a syncopal episode at home earlier this morning. On arrival to the ED patient was noted to be bradycardic with heart rate in the 40s to 50s but otherwise stable. Labs were significant for a leukocytosis of 12 with neutrophil predominance of 10, MCV of 74, MCHC of 29, BUN of 28, high-sensitivity troponin within normal limits, UA with trace leukocyte Estrace but otherwise unremarkable, and negative Lyme disease screen negative. CTA head and brain without contrast noted a right parietal scalp contusion/hematoma but was otherwise negative for acute findings. CT of the cervical spine was negative for acute trauma but did mention asymmetric right apical densities favoring pleural parenchymal scarring. Without comparison available a precautionary 3-month follow-up chest CT is recommended. Chest x- ray was read as showing cardiomegaly with pulmonary vascular congestion and trace pleural effusions. Hiatal hernia. 1.4 cm right apical nodular opacity may represent nodule versus scarring. Of note, while the patient was in the ED she had an ECG and telemetry monitoring showing new second-degree AV block (Mobitz type I). Prior to admission the patient was given 1 L normal saline. Patient was sitting in bed no acute distress at time of exam with her daughter bedside, history is obtained from both. The patient explains that she woke this morning at approximately 7 AM in her normal state of health. Her daughter came over around 730 to help her shower and to help clean the house. Her daughter says that while she was there from approximately 7:30 until approximately 9 AM the patient was in her normal state health. The patient confirms that she ate breakfast and took her morning medications including her a.m. dose of aspirin and lisinopril. Around 9:30 AM the patient stayed she was walking from one side of her kitchen to the other when she suddenly lost consciousness. Patient states that this happened quickly, shortly prior to losing consciousness she says she felt a bit lightheaded but denied the room spinning, chest pain, shortness of breath, or palpitations. She is unsure how long she was out for but remembers waking on the ground and crawling to the chair to lift herself up. She was then able to walk to the living room and sat on her recliner. Some of her friends came over later in the morning and when they heard this event they called her daughter who then called EMS to have her brought to the hospital. The patient currently feels well besides a mild headache at the right lateral scalp where she hit her head. Denies recent fever, chills, chest pain, shortness of breath, abdominal pain, nausea/vomiting, dysuria/hematuria, melena, bloody bowel movements, lower extremity swelling. We discussed CODE STATUS, they confirmed that she has a DNR/DNI and her daughter would make medical decisions for her if she cannot make decisions for self. Please for Dr. Flores's attestation for any changes to the treatment plan Discharge Exam General: NAD, VS as above Resp: normal respiratory effort, no wheezing. stable on room air CV: RRR, no murmur. Dressing over pacemaker site, c/d/i Abd: normal bowel sounds, non tender, no hepatosplenomegaly Extremities: Moves all extremities, no edema, chronic defomities of b/l knuckles Neuro: A&O x3, Skin: intact, resolving bruise over posterior neck from her fall Discharge Plan Discharge Items Patient Disposition: Transfer Inpatient Rehab Fac Reason For Visit: SYNCOPAL EPISODE, 2ND DEGREE AV BLOCK Discharge Diagnosis: Syncopal episode, pacemaker placement, pneumothorax - resolved Activity: As commented below Activity Comment: No lifting left arm above shoulder or behind neck for 6 weeks Bathing Comment: OK to get incision wet, but no soaking Non-emergency contact: Primary Care Provider and Transportation Broker Call non-emergency contact if: you have any medication questions and your symptoms worsen Follow-up/Referrals: Marques Beltran MD [Physician] - Ronnie Jack MD [Primary Care Provider] - (Follow-up 1 week after discharge from [facility]) Diet: Heart Healthy and Low Sodium (2gm) Fluids: 1800ml (7 cups) Addtl Attending Provider Instructions: FOR [facility]: Patient presented on 12/06/23 after syncopal episode suspect secondary to arrhythmia and new type I second-degree AV block. Echo showed EF > 70s, sclerotic aortic valve without significant stenosis. She had a pacemaker inserted on 12/09/23. Unfortunately, she had a pneumothorax from this requiring chest tube placement. Pneumothorax resolved and chest tube was removed 12/14/23. Started on PO iron every other day during this hospitalization - continue. Continue other medications as prescribed. Additionally, Chest x-ray and CT cervical spine noted right apical abnormality representing possible nodule versus scar tissue. Recommend repeat chest CT in 3 months - will defer to PCP for ordering so can be followed up on. Pending Studies at Discharge: No Stand-Alone Forms: My [facility] Skilled Items Patient informed of condition?: Yes DNR: Yes Discharge Level of Care: Other Communicable Disease: No Discharge Prognosis: Stable Lines: None Urinary Catheter: No Medications and DC Order Prescriptions: New Anti-Itch(diphenhyd) with Zinc 2-0.1 % Cream 1 applic EXT Q24H PRN (Reason: itching) Qty: 15 0RF dextromethorphan-guaifenesin [Robitussin Cough-Chest Ty DM] 5-100 mg/5 mL Liquid 10 ml PO Q8 Qty: 500 0RF ferrous sulfate 325 mg (65 mg iron) Tablet,Delayed Release (Dr/Ec) 325 mg PO Q2D Qty: 14 0RF Continued aspirin [Ecotrin Low Strength] 81 mg tablet,delayed release (DR/EC) 81 mg PO QAM multivitamin with minerals [Multiple Vitamin-Minerals] Tablet 1 tab PO DAILY glucosamine sulfate [Glucosamine] 500 mg tablet 500 mg PO BID Rx Instructions: administer with meals naproxen 250 mg tablet 250 mg PO BID PRN (Reason: arthritis) vitamin E 268 mg (400 unit) Capsule 268 mg PO DAILY lisinopril 5 mg tablet 5 mg PO DAILY Discharge Orders: Discharge Order (Routine); Ordered 12/15/23 Ordered By: Marta Carmichael/Other Patient Handouts: Pacemakers, Living with a Pacemaker, Pneumothorax (Collapsed Lung) Admission Data Admit Date/Time: 12/06/23 15:33 Attending Provider: Everardo Pickering Admit Provider: Everardo Flores Primary Care Provider: Ronnie Jack Other Providers: Everardo Flores; Marques Beltran; Tunde [facility] Other Interventions: Discharge Summary Assessment (RN) Last Done: 12/15/23 15:10 Hospital Stay Data Consultations 12/06/23 15:01 ED Decision to Admit Stat 12/06/23 20:06 Consult Cardiology Routine 12/08/23 18:24 Consult Ambulance Paramedic Routine Procedures Performed Operation Date: 12/08/23 16:00 Actual Procedures p Pacer with A/V Leads (Dual) - Jordin Springer MD s Venogram, Unilateral - Jordin Springer MD Diagnostic Imagining Performed Head CT 12/06/23 13:48 CT head/brain wo con CLINICAL HISTORY: 88 years-old Female with syncope, headstrike. Acute syncope with head trauma TECHNIQUE: Multiple axial CT images of the head were obtained without contrast. A dose lowering technique was utilized adhering to the principles of ALARA. COMPARISON: CT cervical spine same day FINDINGS: No acute intracranial hemorrhage, midline shift, intracranial mass, hydrocephalus, territorial ischemia or abnormal extra-axial collection. Involutional changes with chronic microvascular ischemic disease. The calvarium is intact. Right parietal scalp contusion/hematoma. The paranasal sinuses, mastoid air cells, and middle ear cavities are clear. IMPRESSION: Scalp contusion without acute intracranial abnormality or calvarial fracture ACT 112: Negative or not required by law. The above report was generated using voice recognition software. It may contain grammatical, syntax or spelling errors. Electronically signed by: Jacques Luna M.D. 12/06/2023 2:[address] 12/06/23 13:49 CT cervical spine wo con CT DOSE: 944.11 mGy.cm CLINICAL HISTORY: 88 years-old Female with fall, pain. Acute neck pain status post fall COMPARISON: Head CT of same day TECHNIQUE: Multiple axial CT images of the cervical spine were obtained without contrast. A dose lowering technique was utilized adhering to the principles of ALARA. FINDINGS: The demineralized appearance of the bones. Mild to moderate disc space narrowing with vacuum disc phenomena at C5-C6 and C6/C7. [id number] multilevel facet arthrosis. Severe degeneration of the temporomandibular joints. The cervical soft tissues appear unremarkable. Note is made of asymmetric atrophy involving the left parotid gland. Asymmetric irregular opacities of the right lung apex suggestive of pleural-parenchymal scarring measuring up to 4.1 cm in AP dimension and image 67 series 2. No pneumothorax. IMPRESSION: 1. No acute cervical spine fracture or subluxation. 2. Asymmetric right apical densities favor pleural parenchymal scarring. Without comparison available, a precautionary three-month follow-up chest CT recommended. ACT 112: Negative or not required by law. The above report was generated using voice recognition software. It may contain grammatical, syntax or spelling errors. Electronically signed by: Jacques Luna M.D. 12/06/2023 2:55 PM Chest X-Ray 12/08/23 17:28 XR chest insprtn/exprtn only CLINICAL HISTORY: poss. pneumo TECHNIQUE: Inspiration expiration films of the chest were obtained. Comparison: Comparison is made to chest radiograph 12/06/2023 FINDINGS: Interval placement of a pacemaker with the leads in satisfactory position. Calcified aortic knob is seen. Right apical density is similar to prior exam. There is a left-sided pneumothorax measuring up to 17 mm. IMPRESSION: Small left pneumothorax status post pacemaker placement. ACT 112: Negative or not required by law. Electronically signed by: Jossue Gaviria M.D. 12/08/2023 6:26 PM Chest X-Ray 12/14/23 07:00 XR chest 1V portable CLINICAL HISTORY: f/u TECHNIQUE: Single frontal radiograph of the chest was obtained. Comparison: Comparison is made to chest radiograph 12/13/2023 FINDINGS: Lines and tubes are stable. The cardiomediastinal silhouette is normal. The lungs are clear. No evidence of pleural effusion or pneumothorax. Subcutaneous emphysema is again noted. IMPRESSION: Stable lines and tubes including left chest tube. No pneumothorax is seen on today's exam. ACT 112: Negative or not required by law. Electronically signed by: Jossue Gaviria M.D. 12/14/2023 9:01 AM Chest X-Ray 12/14/23 14:00 XR chest 1V portable CLINICAL HISTORY: f/u TECHNIQUE: Single frontal radiograph of the chest was obtained. Comparison: Comparison is made to chest radiograph 12/14/2023 FINDINGS: Lines and tubes are stable. Calcified aortic knob is seen. The lungs are clear. No evidence of pleural effusion or pneumothorax. IMPRESSION: Stable left pleural catheter with no radiographic evidence of pneumothorax. ACT 112: Negative or not required by law. Electronically signed by: Jossue Gaviria M.D. 12/14/2023 4:36 PM Pending Results Patient Have Any Pending Studies at Discharge: No Discharge Instructions Given to Patient (Per Discharging Provider) FOR [facility]: Patient presented on 12/06/23 after syncopal episode suspect secondary to arrhythmia and new type I second-degree AV block. Echo showed EF > 70s, sclerotic aortic valve without significant stenosis. She had a pacemaker inserted on 12/09/23. Unfortunately, she had a pneumothorax from this requiring chest tube placement. Pneumothorax resolved and chest tube was removed 12/14/23. Started on PO iron every other day during this hospitalization - continue. Continue other medications as prescribed. Additionally, Chest x-ray and CT cervical spine noted right apical abnormality representing possible nodule versus scar tissue. Recommend repeat chest CT in 3 months - will defer to PCP for ordering so can be followed up on. Total Time Total Time Spent Total Time Spent (In Minutes): Greater than 30 minutes spent completing this discharge process including direct patient care, medication reconciliation, documentation, review of labs and images, and coordination of care. Coding Level of Care Code 81671 INP/OBS DISCH >30 MIN Diagnoses Syncope R55 Syncope type: unspecified Second degree AV block I44.1 Chest x-ray abnormality R93.89 Anemia D64.9
== END 2023-12-15 15:11 | DRG 243 ==
LOC: ED 12:15 → SUATTDRO 15:33 → 4W 15:33 → 1E 12-08 18:20 → 2S 12-09 15:27
DX: D64.9 Anemia, unspecified; M32.9 Systemic lupus erythematosus, unspecified; Z85.3 Personal history of malignant neoplasm of breast; W18.30XA Fall on same level, unspecified, initial encounter; I44.1 Atrioventricular block, second degree; Z79.82 Long term (current) use of aspirin; Y83.8 Other surgical procedures as the cause of abnormal reaction of the patient, or of later complication, without mention of misadventure at the time of the procedure; Y92.239 Unspecified place in hospital as the place of occurrence of the external cause; J95.811 Postprocedural pneumothorax; Y92.039 Unspecified place in apartment as the place of occurrence of the external cause; S00.03XA Contusion of scalp, initial encounter; Z86.718 Personal history of other venous thrombosis and embolism